=== PATIENT | female | born 1940 | race Caucasian/White ===

== ENCOUNTER 2024-12-10 17:58 | Inpatient (IN) | payer MEDICARE, OTHER, SELFPAY ==
[2024-12-10 13:17] VITALS: BP 152/76
[2024-12-10 13:58] LABS: % Basophils 0.9 % (0-2); % Eosinophils 0.7 % (0-6); % Immature Granulocytes 0.4 % (0-0.5); % Lymphocytes 23.3 % (20.5-51.1); % Monocytes 6.1 % (1.7-9.3); % Neutrophils 68.6 % (42.2-75.2); Absolute Basophils 0.1 10^3/uL (0-0.2); Absolute Eosinophils 0.1 10^3/uL (0-0.7); Absolute Lymphocytes 1.6 10^3/uL (1.2-3.4); Absolute Monocytes 0.4 10^3/uL (0.1-0.6); Absolute Neutrophils 4.6 10^3/uL (1.4-6.5); Hematocrit 41.9 % (37.0-47.0); Hemoglobin 13.7 g/dL (12.0-16.0); Mean Corp Hgb Conc. 32.7 g/dL (33.0-37.0); Mean Corpuscular Hgb 28.2 pg (27.0-31.0); Mean Corpuscular Volume 86.4 fL (81.0-99.0); Mean Platelet Volume 10.5 fL (7.4-10.4); Nucleated Red Blood Cells % 0 %; Platelet Count 334 10^3/uL (130-400); Red Blood Cell Count 4.85 10^6/uL (4.20-5.40); Red Cell Dist. Width 14.7 % (11.5-14.5); White Blood Cell Count 6.7 10^3/uL (4.8-10.8)
[2024-12-10 14:06] LABS: Urine Albumin 2+ (Neg - Trace); Urine Bilirubin Negative (Negative); Urine Character Slightly Cloudy (Clear); Urine Color Yellow; Urine Glucose Negative (Negative); Urine Ketone 2+ (Negative); Urine Leukocyte 3+ (Negative); Urine Nitrite Positive (Negative); Urine Occult Blood 2+ (Negative); Urine Specific Gravity 1.015 (<1.030); Urine Urobilinogen Negative (Neg - 1+)
[2024-12-10 14:14] LABS: Albumin 4.3 g/dl (3.5-5.0); Alkaline Phosphatase 607 U/L (38-126); Blood Urea Nitrogen 21 mg/dl (7-17); Calcium 10.2 mg/dl (8.4-10.2); Carbon Dioxide 30 mmol/L (22-30); Chloride 100 mmol/L (98-107); Glucose 154 mg/dl (70-99); Lipase 537 U/L (23-300); Potassium 3.8 mmol/L (3.5-5.1); Sodium 138 mmol/L (135-145); Total Bilirubin 7.1 mg/dl (0.2-1.3); Total Protein 7.5 g/dl (6.3-8.2); eGFR > 60.00
[2024-12-10 14:18] LABS: Urine Squamous Cell 0-2 /LPF (Few)
[2024-12-10 14:19] LABS: Urine Bacteria Many (Negative); Urine Red Blood Cell 0-2 /HPF (0-2); Urine White Cell >100 /HPF (0-5)
[2024-12-10 14:22] LABS: ALT (SGPT) 986 U/L (0-35); AST (SGOT) 691 U/L (14-36)
[2024-12-10 14:26] VITALS: BMI 26.6
--- NOTE | 2024-12-10 16:33 | ED.GENMED ---
History of Present Illness
General
Chief Complaint: Abdominal Pain
Time Seen by Provider: 12/10/24 14:19
History of Present Illness
History of Present Illness:
84-year-old female presents the emergency department for evaluation of generalized abdominal pain ongoing for the past week or more. Pain has been gradually worsening since that time. Seems to be radiating toward the upper abdomen at this point.
No nausea vomiting or diarrhea. Denies any fevers chills or night sweats. Prior abdominal surgical history includes cholecystectomy and hysterectomy
Review of Systems
Review of Systems
Allergies reviewed?: Yes
All Other Systems: ROS reviewed and negative except as documented in HPI and ROS
Phy Exam
Physical Exam
Physical Exam:
GEN: Well appearing, NAD, WDWN
HEENT: Oral mucosa moist, mild scleral icterus
Cardiac: Regular rate
Lung: No respiratory distress, no tachypnea
Abdomen: Protuberant but overall soft, nonrigid, mild suprapubic tenderness palpated
MSK: No gross deformity or injuries
Skin: Good color, no pallor or jaundice, no rashes
Neuro: AO x3, moves all extremities freely
Psych: Calm, cooperative
Course
Orders/Labs/Results
Orders:
Orders
12/10/24 Breakfast
Clear Liquid
At Your Request: Full Participation
Does patient need a safe tray?: No
12/10/24 13:45
CA 19-9 [S] Urgent
Comment: ADD ON
Complete Blood Count/With Diff Urgent
Comprehensive Metabolic Panel Urgent
Lipase Urgent
Urinalysis Reflex To Culture Urgent
Date Specimen was Collected: 12/10/24
Time Specimen was Collected: 13:25
Urine Microscopic Reflex Cult Urgent
Urine Culture Urgent
CHARLES Source: U
Specimen Description:
Date Specimen was Collected: 12/10/24
Time Specimen was Collected: 13:25
12/10/24 14:30
CT Abd/Pel (IV only)-DH only Urgent
Comment:
Reason For Exam: periumbilical abd pain, transaminitis
12/10/24 16:31
0.9% Sodium Chloride 1000 ml [Nss] 1,000 ml IV BOLUS
CefTRIAXone [Rocephin] 2,000 mg IV NOW STA
12/10/24 16:58
Add On- LAB Routine
Tests Added?: ca 19-9
12/10/24 17:11
Admit/Transfer Patient As Directed
Co-Sign Provider:
Level of Care: Inpatient admission
Assign to:: Telemetry
Physician / Group: White
Diagnosis: Biliary Obstruction
Reason for Telemetry: Arrhythmia
Date to Stop Telemetry: 12/13/24
Time to Stop Telemetry: 11:00
Reason for Hospitalization: IVF, IV abx
Expected length of stay greater than two midnights?: Yes
ELOS- Estimated Length of Stay in days: 4
I certify the patient meets the requirements for IP care: Yes
PRN Pain Medication Management As Directed
May give lesser potent ordered pain med per pt: Yes
preference::
Protocol:: Medication orders for pain may be administered in a
manner that supports deferring to patient preference
when the pt is:
- Requesting an ordered lesser potent pain medication.
Least to most potent pain medications are defined
as: acetaminophen < NSAID < tramadol < opioids
(morphine, oxycodone, hydromorphone).
- Requesting a lesser dose of the same medication IF
ORDERED.
- Requesting a less intrusive route of administration
if both routes are prescribed by the provider (PO <
IV).
12/10/24 17:13
Code Status As Directed
Resuscitation Status: Full Code
12/10/24 17:25
Sterile Water [Sterile Water For Injection] 20 ml .ROUTE .STK-MED
12/10/24 19:25
0.9% Sodium Chloride 1000 ml [Nss] 1,000 ml IV 75 mls/hr
12/10/24 19:25
GASTROINTESTINAL CONSULT Routine
Consulting Provider: Mao Encarnacion
Was physician already notified: Yes
MR Abdomen W/o & W Contrast Routine
Comment: With MRCP
Reason For Exam: elevated LFTs, possible pancreatitic mass
Recent pill cam endoscopy?: No
Activity As Directed
Activity Level: Out of Bed-Early Mobility
With Assistance
I&O [Intake/ Output] As Directed
Frequency: q12h
Pneumatic Compression Sleeves As Directed
Type: Knee high
Vital Signs As Directed
Frequency: Per unit guidelines
DX Deep Vein Thrombosis Video Routine
12/10/24 20:00
Acetaminophen [Tylenol] 650 mg PO Q4HPRN PRN
Flecainide [Tambocor] 50 mg PO Q12H
MetroNIDAZOLE 500 MG/100 ML [Flagyl 500 mg] 100 ml IV Q8H
Midodrine [ProAmatine] 10 mg PO BID
12/11/24 06:00
Complete Blood Count/No Diff IN AM
Comprehensive Metabolic Panel IN AM
Magnesium IN AM
12/11/24 08:00
Metoprolol Xl [Toprol Xl] 25 mg PO DAILY
Pantoprazole [Protonix IV] 40 mg IV DAILY
12/11/24 18:00
CefTRIAXone [Rocephin] 1,000 mg IV Q24H
12/13/24 11:00
DC Protocol for Telemetry ONCE
Abnormal Lab Results
12/10/24
13:45
MCHC 32.7 L g/dL
(33.0-37.0)
RDW 14.7 H %
(11.5-14.5)
MPV 10.5 H fL
(7.4-10.4)
BUN 21 H mg/dl
(7-17)
Glucose 154 H mg/dl
(70-99)
Total Bilirubin 7.1 H mg/dl
(0.2-1.3)
AST 691 H* U/L
(14-36)
ALT 986 H* U/L
(0-35)
Alkaline Phosphatase 607 H U/L
(38-126)
Lipase 537 H U/L
(23-300)
Urine Ketones 2+ A
(Negative)
Ur Occult Blood Reflex 2+ A
(Negative)
Urine Nitrite (Reflex) Positive A
(Negative)
Leukocyte Esterase Rfl 3+ A
(Negative)
Urine WBC (Reflex) >100 A /HPF
(0-5)
Urine Bacteria (Reflex) Many A
(Negative)
Urine Albumin (Reflex) 2+ A
(Neg - Trace)
12/10/24 13:45
12/10/24 13:45
Vital Signs
Initial and Last Documented VS:
Initial Vital Signs
Temp Pulse Resp BP Pulse Ox
98.5 F 99 18 152/76 98
12/10/24 13:17 12/10/24 13:17 12/10/24 13:17 12/10/24 13:17 12/10/24 13:17
Last Documented Vital Signs
Temp Pulse Resp BP Pulse Ox
97.7 F 93 18 127/96 96
12/10/24 19:38 12/10/24 19:38 12/10/24 19:38 12/10/24 19:38 12/10/24 19:38
MDM/Problems Addressed
MDM/Problems Addressed:
The patient is unfortunately found to have biliary obstruction most likely due to a pancreatic head mass. Incidentally noted to have a urinary tract infection and will be treated with IV antibiotics for this.
*Critical Care Note
Total Time (30-74mins, 75-104mins- exclusive of procedures): Not Applicable
ED Attending Note
-
Portions of this chart may have been created with voice recognition software.� Occasional wrong word or��sound alike� substitutions may have occurred due to the inherent limitations of voice recognition software.
Discharge Plan
Departure
Patient Disposition: Admit
Date of Disposition: 12/10/24
Time of Disposition: 16:33
Admit to: Med/Surg
Presentation/result/management discussed w/ accepting MD/DO: Hospitalist
Discharge Problem:
Mass of pancreas, Biliary obstruction
Interventions
Interventions:
*Risk Screen - Suicide Last Done: 12/10/24 13:17
*General Assessment Last Done: 12/10/24 13:17
*Neglect/Abuse Screening Last Done: 12/10/24 13:17
*ED- Fall Risk Assessment Last Done: 12/10/24 19:26
*ED COVID-19 Vaccine History Last Done: 12/10/24 13:17
*Nursing Disposition Last Done: 12/10/24 19:26
OF-Dybavp-Hoqnxlaktl Assessment Last Done: 12/10/24 14:26
Discharge Date and Time
Discharge Date/Time: 12/10/24 19:27
[2024-12-10] MEDS: NSS 1000 IV ×2 (16:44→20:35)
--- NOTE | 2024-12-10 17:17 | HPS.HSE ---
Family Physician
-
Family Physician: NOT KNOW UNKNOWN - PT DOES
Chief Complaint
-
Abdominal Pain
History of Present Illness
Patient is an 84 y/o female past medical history of paroxysmal atrial fibrillation, and orthostatic hypotension who presents with abdominal pain. Patient reports over the past few months she has had decreasing appetite and has lot about 20 lbs.
Three days ago when she took her medications she developed severe indigestion and has not taken any mediations since that time. Patient reports increasing left sided abdominal pain and distention over the last week. During my evaluation patient's
son arrived who noted her to be jaundice, which he did not note when he saw her last week. Patient denies any fevers, sweats or chills.
Medical History
Past Medical History
Past Medical History: Reports Other
Additional Past Medical History:
Paroxysmal Atrial Fibrillation
Orthostatic Hypotension
Cognitive Impairment
Past Surgical History: Reports Other
Additional Past Surgical History:
Hysterectomy
Cholecystectomy
Appendectomy
Hernia Repair
Ureteral Stent
Bunionectomy
Social History
Tobacco: Non-smoker
Alcohol: Other (Rare per patient)
Family History
Family History: Not pertinent
Allergies / Home Medications
Allergies reflects when Allergies were last updated in [employer].
Home Medications with original date entered in [employer]
Allergy/Medication List:
Allergies
Allergy/AdvReac Type Severity Reaction Status Date / Time
oxycodone [From OxyContin] AdvReac hallucinati Verified 12/10/24 13:23
ons
Home Medications
calcium carbonate (Tums) 200 mg PO BIDPRN PRN gerd 12/10/24
dabigatran etexilate 150 mg capsule (Pradaxa) 150 mg PO BID 12/10/24
flecainide 50 mg tablet 50 mg PO Q12H 12/10/24
metoprolol succinate 25 mg tablet,extended release 24 hr (Toprol XL) 25 mg PO DAILY 12/10/24
midodrine 10 mg tablet 10 mg PO BID 12/10/24
naproxen sodium 220 mg tablet (Aleve) 660 mg PO DAILYPRN PRN mild pain 12/10/24
omeprazole 20 mg capsule,delayed release 20 mg PO DAILYPRN PRN gerd 12/10/24
Review of Systems
-
A 12 point ROS was completed and negative except as noted: Yes
Constitutional: Denies Fever
Respiratory: Denies Cough or Trouble Breathing
Cardiac: Denies Chest Pain or Palpitations
Abdomen/GI: Reports See HPI
Physical Exam
Vital Signs
Vital Signs
Temp Pulse Resp BP Pulse Ox
98.5 F 99 18 152/76 98
12/10/24 13:17 12/10/24 13:17 12/10/24 13:17 12/10/24 13:17 12/10/24 13:17
Physical Exam
General: Comfortable and Conversant
HEENT: NormoCephalic and Moist mucous membranes
Respiratory: Clear and Non Labored Respirations
Cardiac: S1/S2 and Regular Rhythm
GI: Soft and Tender (Mild on the left without rebound or guarding)
Rectal: Deferred by Provider
Musculoskeletal: No Clubbing, No Cyanosis and No Edema
Skin: Warm, Dry and Jaundice
Neuro: Awake and Alert
Psych: Calm
Laboratory Results
-
12/10/24 13:45
12/10/24 13:45
Laboratory Results
Total Bilirubin 7.1 mg/dl (0.2-1.3) H 12/10/24 13:45
AST 691 U/L (14-36) H* 12/10/24 13:45
ALT 986 U/L (0-35) H* 12/10/24 13:45
Alkaline Phosphatase 607 U/L (38-126) H 12/10/24 13:45
Lipase 537 U/L (23-300) H 12/10/24 13:45
Data Reviewed
-
Lab Data: Labs Reviewed by me
Impression/Plan
-
Biliary Obstruction likely secondary to Pancreatic Mass
-Consult GI
-Check Abd MRI with MRCP
-Allow clear liquids
-Trend LFTS
-Check CA 19-9
-Continue ceftriaxone and metronidazole
Urinary Tract Infection
-Continue ceftriaxone
-Await urine culture
Paroxysmal Atrial Fibrillation
-Pradaxa on hold
-Continue flecainide and metoprolol
Orthostatic Hypotension
-Continue Midodrine
Cognitive Impairment
-Patient appears very forgetful
-Monitor for worsening symptoms during hospitalization
DVT proph: SCDs
Code Status: Full Code
--- NOTE | 2024-12-10 17:23 | W.PN.UPDATE ---
Update Note
Progress Note Update
This serves as an addendum to the H&P dictated by Marilou Krueger on 12/10/2024.
I saw and examined the patient.
The FABRIC WORKER FOREMAN or PA's note was reviewed and I agree with the note.
Comment:
Patient 84 years old female history of paroxysmal atrial fibrillation, GERD, hypertension, orthostatic hypotension, came into the hospital with abdominal pain. Patient has been complaining of abdominal discomfort on and off for last several months
and worse over the last few days associated with anorexia, weight loss, nausea. She does have some urinary discomfort. Denies change in the color of the urine or stools. Denies fevers or chills. Reports yellowish of the skin recently. CT scan
shows 2.8 cm mass in the pancreatic head.
Physical exam:
General: No Apparent Distress
HEENT: Normocephalic, Atraumatic and icterus
Respiratory: Clear to Auscultation; Negative Wheezes, Rales or Rhonchi
Cardiac: Regular Rhythm and S1/S2
GI: Soft, Tender and Nondistended
Neuro: Awake, Alert and Oriented, no neurological deficits, mild cognitive deficit.
A/P:
Elevated LFTs and pancreatic mass/UTI--> IV antibiotics, trend LFTs, might need MRCP +/- EUS Bx, hold anticoagulant temporarily, clear liquid diet and n.p.o. after midnight in case needs procedure, GI eval.
[2024-12-10] MEDS: ROCEPHIN 2000 MG IV (17:39)
[2024-12-10 17:46] VITALS: BP 140/76
[2024-12-10 19:38] VITALS: BP 127/96
[2024-12-10 19:40] VITALS: BMI 26.8
[2024-12-10] MEDS: TAMBOCOR 50 MG PO (21:59)
[2024-12-10] MEDS: FLAGYL 500 MG 100 IV (22:00)
[2024-12-10 23:20] VITALS: BP 160/84
--- NOTE | 2024-12-11 01:38 | PTCARENOTE ---
19:20 pt rec'vd from ER with at her side. Pt aaox3 with forgetfulness, c/o 3/10 LLQ abd pain on palpation. Pt vs wnl, oriented to unit, ambulated to restroom. Declined pain meds.
[2024-12-11] MEDS: FLAGYL 500 MG 100 IV ×2 (03:41→12:12)
[2024-12-11 03:42] VITALS: BP 100/69
[2024-12-11] MEDS: COMPAZINE 5 MG IV (04:50)
[2024-12-11 06:00] VITALS: BMI 26.8
[2024-12-11 07:08] LABS: Hematocrit 34.6 % (37.0-47.0); Hemoglobin 11.4 g/dL (12.0-16.0); Mean Corp Hgb Conc. 32.9 g/dL (33.0-37.0); Mean Corpuscular Hgb 28.1 pg (27.0-31.0); Mean Corpuscular Volume 85.2 fL (81.0-99.0); Mean Platelet Volume 11.4 fL (7.4-10.4); Platelet Count 262 10^3/uL (130-400); Red Blood Cell Count 4.06 10^6/uL (4.20-5.40); Red Cell Dist. Width 14.9 % (11.5-14.5); White Blood Cell Count 5.4 10^3/uL (4.8-10.8)
[2024-12-11 07:17] LABS: AST (SGOT) 567 U/L (14-36); Albumin 3.4 g/dl (3.5-5.0); Alkaline Phosphatase 511 U/L (38-126); Blood Urea Nitrogen 17 mg/dl (7-17); Calcium 9.2 mg/dl (8.4-10.2); Carbon Dioxide 25 mmol/L (22-30); Chloride 106 mmol/L (98-107); Estimated Creatinine Clearance 67 ml/min; Glucose 102 mg/dl (70-99); Magnesium 1.8 mg/dl (1.6-2.3); Potassium 3.8 mmol/L (3.5-5.1); Sodium 139 mmol/L (135-145); Total Protein 5.9 g/dl (6.3-8.2); eGFR > 60.00
[2024-12-11 07:31] LABS: ALT (SGPT) 827 U/L (0-35)
[2024-12-11 08:00] VITALS: BP 143/69
--- NOTE | 2024-12-11 08:26 | W.PN.HOSP.TC ---
Today's Communication/Plan
-
MRCP. Antibiotics.
Assessment / Plan
Assessment / Plan
Physical exam:
General: Well Developed, Well Nourished and No Apparent Distress
HEENT: Normocephalic, Atraumatic and Moist Mucous Membranes
Respiratory: Clear to Auscultation; Negative Wheezes, Rales or Rhonchi
Cardiac: Regular Rhythm and S1/S2
GI: Soft, tender and Nondistended
Musculoskeletal: No Clubbing, No Cyanosis and No Edema
Neuro: Awake, Alert and Oriented
Psych: Calm
A/P:
Biliary Obstruction likely secondary to Pancreatic Mass
-GI consult
-Check Abd MRI with MRCP
-Allow clear liquids
-Trend LFTS
-Check CA 19-9 and CEA
-Continue ceftriaxone and metronidazole
-Continue to hold Pradaxa
-Might need ERCP/EUS
-Continue PPI
Urinary Tract Infection
-Continue ceftriaxone
-Await urine culture
Paroxysmal Atrial Fibrillation
-Pradaxa on hold
-Continue flecainide and metoprolol
Orthostatic Hypotension
-Continue Midodrine
Cognitive Impairment
-Patient appears very forgetful
-Monitor for worsening symptoms during hospitalization
DVT proph: SCDs
Code Status: Full Code
Total time spent on today's encounter was 52 minutes which included time spent in counseling the patient/family regarding diagnosis and treatment plan as listed above, goals of care, and symptom management. Case was discussed with nursing staff,
specialists, and care coordinators/case management. All labs and imaging personally reviewed by me. Remainder the time spent in detailed review of previous records, lab data, imaging, and other medical provider documentation.
Anticipated Discharge: 24 - 48 hours
Subjective/Interval History
-
Date of Service: December 11, 2024
Patient still has some abdominal discomfort. Afebrile
Objective Data
-
Labs:
Laboratory Results
12/11/24
05:23
WBC 5.4
Hgb 11.4 L
Hct 34.6 L
Plt Count 262 D
Sodium 139
Potassium 3.8
Chloride 106
Carbon Dioxide 25
BUN 17
Creatinine 0.6
Glucose 102 H
Calcium 9.2
Total Bilirubin 6.0 H
AST 567 H*
ALT 827 H*
Alkaline Phosphatase 511 H
Vital Signs:
Vital Signs
Temp Pulse Resp BP Pulse Ox
97.6 F 93 18 100/69 96
12/11/24 03:42 12/11/24 03:42 12/11/24 03:42 12/11/24 03:42 12/11/24 03:42
I&O
12/10/24 12/11/24 12/12/24
06:59 06:59 06:59
Intake Total 1302.5 / 1302.5
Balance 1302.5 / 1302.5
[2024-12-11] MEDS: NSS (PRESERVATIVE FREE) 10 ML IV (09:07)
[2024-12-11] MEDS: TOPROL XL 25 MG PO (09:08)
[2024-12-11] MEDS: PROTONIX IV 40 MG IV (09:08)
[2024-12-11] MEDS: NSS 1000 IV (09:17)
--- NOTE | 2024-12-11 09:23 | CON.GI ---
Addendum entered and electronically signed by Mao Encarnacion MD 12/11/24 14:05:
Patient seen and examined, agree with nurse practitioner. Patient is an 84-year-old female with history of A-fib on Pradaxa, though otherwise healthy, with several week history of epigastric discomfort, nausea and 20 pound weight loss. Upon
admission she was noted to have significant elevated LFTs with a bilirubin of 6, ALT and AST in the 5-800 range and mildly elevated lipase. CT scan done with contrast found 2.8 cm ill-defined mass in the head of the pancreas with severe intra and
extrahepatic biliary duct dilation. On exam she has minimal epigastric discomfort, and is jaundice but otherwise unremarkable.
I discussed with the patient and her at length, very suspicious for pancreatic malignancy. At this point will await MRI reading, and we will plan for EUS/ERCP, timing will be determined after discussion with Dr. Bernal. Will advance diet for
today though continue to hold Pradaxa for now.
Original Note:
Consultation
-
Date/Time Consultation Requested: 12/10/241924
Date/Time Consultation Performed: 12/11/24922
Requesting Provider: ZOIE Mazariegos
Performing Provider: Dr. Encarnacion/MATHEUS Campbell
Reason for Consultation: biliary obstruction
Medical History
Chief Complaint / HPI
Chief Complaint: abd pain
History of Present Illness:
84 y/o female with PMH of PAF on Pradaxa (last dose prior to arrival on 12/10/24),HTN, orthostatic hypotension, GERD and cognitive impairment presents to the ER with left mid abd abdominal pain, decreased appetite, nausea, weight loss, new onset
jaundice. Found to have pancreatic mass on CT imaging. We are asked to evaluate for the same. The patient does have some degree of forgetfulness however is able to give a good history to me. She states that for the past 3 months she has noticed that
she has been having decreased ability to eat as much, getting full quickly. She then started having nausea with a weight loss of 20 lbs over the past 8 weeks. During that time she also developed a left mid abdomen abdominal discomfort that would
'come and go' she states that this was dull, nothing would make better or worse. She then started taking medication for 'her stomach' which did not help. She would never vomit. 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
darker. She was not able to eat as much with more and more nausea and pain. She tried taking Advil for the pain but that did not help. That is when she was rought to the hospital for evaluation. Labs this am WBC 5.4, Hgb 11.4, Hct 34.6, PLT 262, T
Bili 6.0 (7.1), AST 567 (691), ALT 827 (986), Alk Phos 511 (607), Lipase 537. Ct Abd/Pelvis with IV contrast only shows ill-defined, mildly hyperdense focus within the pancreatic head measuring approximately 2.8 cm. There is associated severe
intrahepatic and extrahepatic biliary ductal dilation. Consolation of findings are concerning for pancreatic head lesion. Recommend MRI abdomen for further evaluation.Sclerotic foci within the lumbar spine and pelvis suspicious for sclerotic osseous
metastasis. Left inguinal hernia containing nonobstructed colon. Fat-containing supraumbilical hernia. Small/moderate pericardial effusion.
Past Medical History
Past Medical History: Arrhythmias (PAF), GERD, HTN and Other (orthostatic hypotension, cognitive impairment)
Past Surgical History: Appendectomy, Cholecystectomy, Gynecological (hysterectomy) and Other (hernia repair, ureteral stent, bunionectomy)
Social History
Tobacco: Non-Smoker
Alcohol: Other (rare)
Drug: None
Personal:
Living: With Family
Family History
Family History: Other (No family hx of GI malignancy or IBD)
Allergies / Home Medications
Allergy/AdvReac Type Severity Reaction Status Date / Time
Oubzaox-[id number]-YwD Reductase Allergy Severe Shortness Verified 12/11/24 00:05
Inhibitor of Breath
oxycodone [From OxyContin] AdvReac hallucinati Verified 12/10/24 13:23
ons
�Medication �Instructions �Recorded
calcium carbonate (Tums) 200 mg PO BIDPRN PRN gerd 12/10/24
dabigatran etexilate 150 mg 150 mg PO BID Blood Clot 12/10/24
capsule (Pradaxa) Prevention/Tx
flecainide 50 mg tablet 50 mg PO Q12H Arrhythmia 12/10/24
metoprolol succinate 25 mg 25 mg PO DAILY Heart 12/10/24
tablet,extended release 24 hr Disease/Condition
(Toprol XL)
midodrine 10 mg tablet 10 mg PO BID Blood Pressure 12/10/24
naproxen sodium 220 mg tablet 660 mg PO DAILYPRN PRN mild pain 12/10/24
(Aleve)
omeprazole 20 mg capsule,delayed 20 mg PO DAILYPRN PRN gerd 12/10/24
release
Review of Systems
Vital Signs
Temp Pulse Resp BP Pulse Ox
98.0 F 82 16 143/69 97
12/11/24 08:00 12/11/24 08:00 12/11/24 08:00 12/11/24 09:07 12/11/24 08:00
Physical Exam
Results
WBC 5.4 10^3/uL (4.8-10.8) 12/11/24 05:23
Hgb 11.4 g/dL (12.0-16.0) L 12/11/24 05:23
Hct 34.6 % (37.0-47.0) L 12/11/24 05:23
MCV 85.2 fL (81.0-99.0) 12/11/24 05:23
Plt Count 262 10^3/uL (130-400) D 12/11/24 05:23
Absolute Neuts (auto) 4.6 10^3/uL (1.4-6.5) 12/10/24 13:45
Sodium 139 mmol/L (135-145) 12/11/24 05:23
Potassium 3.8 mmol/L (3.5-5.1) 12/11/24 05:23
Chloride 106 mmol/L (98-107) 12/11/24 05:23
Carbon Dioxide 25 mmol/L (22-30) 12/11/24 05:23
BUN 17 mg/dl (7-17) 12/11/24 05:23
Creatinine 0.6 mg/dL (0.6-1.0) 12/11/24 05:23
Calcium 9.2 mg/dl (8.4-10.2) 12/11/24 05:23
Total Bilirubin 6.0 mg/dl (0.2-1.3) H 12/11/24 05:23
AST 567 U/L (14-36) H* 12/11/24 05:23
ALT 827 U/L (0-35) H* 12/11/24 05:23
Alkaline Phosphatase 511 U/L (38-126) H 12/11/24 05:23
Lipase 537 U/L (23-300) H 12/10/24 13:45
Diagnostic Image Results:
Prior GI Procedures:
EGD:
Colonoscopy:
Assessment / Plan
-
84 y/o female with PMH of PAF on Pradaxa (last dose prior to arrival on 12/10/24),HTN, orthostatic hypotension, GERD and cognitive impairment presents to the ER with left mid abd abdominal pain, decreased appetite, nausea, weight loss, new onset
jaundice. Found to have pancreatic mass on CT imaging. We are asked to evaluate for the same. CT Abd/Pelvis with IV contrast shows ill-defined, mildly hyperdense focus within the pancreatic head measuring approximately 2.8 cm. There is associated
severe intrahepatic and extrahepatic biliary ductal dilation. Consolation of findings are concerning for pancreatic head lesion. Recommend MRI abdomen for further evaluation.Sclerotic foci within the lumbar spine and pelvis suspicious for sclerotic
osseous metastasis. Left inguinal hernia containing nonobstructed colon. Fat-containing supraumbilical hernia. Small/moderate pericardial effusion. Labs this am WBC 5.4, Hgb 11.4, Hct 34.6, PLT 262, T Bili 6.0 (7.1), AST 567 (691), ALT 827 (986),
Alk Phos 511 (607), Lipase 537. Ca 19-9 pending. Pradaxa is on hold. MRI/MRCP ordered.
Impression:
Pancreatic head mass 2.8 cm with intra/extra hepatic ductal dilatation
Obstructive jaundice
Nausea
Weight loss
Left sided abdominal discomfort
Afib on Pradaxa, last dose 12/10/34
Plan:
-Await MRI/MRCP for further clarification.
-Await Ca 19-9, Can also add CEA
-Pradaxa being held. Will likely need EUS/ERCP once MRCP completed. Timing to be determined? inpatient vs outpatient.
-Continue Pantoprazole 40 mg IV daily.
-Further recommendations to be forthcoming.
-
-
Thank you for consultation and allowing me to participate in the patient's care. Please call the deportation officer GI physician during the after hours with any questions or concerns.
[2024-12-11 11:50] LABS: CEA 0.89 ng/ml
--- NOTE | 2024-12-11 12:02 | CM ---
Initial assessment completed
Pt reports she lives at [facility] in Independent living with her
AAA x 3; forgetful. Independent with ADL's. Ambulates independently
DME - none
SNF/HH - denies past hx
Has ride at d/c
PCP - unsure - seen at [facility]
Pharm - [facility]
Plan - TBD - for MRI today. CM will follow for d/c needs
[2024-12-11] MEDS: TAMBOCOR 50 MG PO (12:12)
[2024-12-11 12:30] VITALS: BP 147/73
--- NOTE | 2024-12-11 15:03 | W.PN.UPDATE ---
Update Note
Progress Note Update
I discussed with Dr. Bernal, reviewed MRI with patient and her , concerning for metastatic pancreatic cancer. She is set up for EUS/ERCP on Saturday, December 15 at 1:00, to be there at 12 PM. She knows to continue to hold the Pradaxa, take her
metoprolol on the day of with a sip of water, instructions were given. She is okay to DC from GI standpoint.
[2024-12-11 16:15] VITALS: BP 140/56
--- NOTE | 2024-12-11 16:47 | W.DCSUMMARY ---
Discharge Summary
Discharge Data
Date of Admission: 12/10/24
Date of Discharge: 12/11/24
-
Pending Results: No
Hospital Course
Patient 84 years old female history of A-fib, orthostatic hypotension, GERD, cognitive impairment, who presented to the hospital with abdominal pain nausea and vomiting and jaundice. Patient was found elevated LFTs and a mass in the pancreas by CT
scan. GI was consulted. There was some concerns of urinary tract infection and she was started on antibiotics as well. She had an MRCP and it did confirm pancreatic mass concerning for malignancy with biliary obstruction. GI cannot perform
interventional procedure of the weekend and she is hemodynamically stable and tolerated diet so GI cleared her for discharge to arrange for outpatient interventional procedure of ERCP and EUS on this coming Saturday. For instructed to hold
anticoagulant and keep her on antibiotics till then. There was some reports of possible pericardial effusion on images of MRI so we did an echocardiogram but this was ruled out and there was no pericardial effusion and normal EF and no significant
valvulopathy by echo. No other events noticed. She will be discharged in stable condition today.
Discharge duration: 35 minutes
Discharge Plan
-
Patient Disposition: Home (Routine Discharge)
Discharge Diagnosis/Procedures: Pancreatic mass concerning for malignancy. Possible urinary tract infection. Elevated liver function test.
Diet: Low Cholesterol
Activity: As tolerated
Blood Work: Please PCP to order CBC, CMP within 1 week
Referrals:
Primary care, provider [Other] - in less than 1 week
Ravinder Bernal MD [Active] - 12/15/24
Prescriptions:
New
amoxicillin-pot clavulanate 875-125 mg Tablet
1 tab PO Q12 5 Days Qty: 10 0RF
Continued
flecainide 50 mg Tablet
50 mg PO Q12H
calcium carbonate [Tums] 200 mg calcium (500 mg) Tablet,Chewable
200 mg PO BIDPRN PRN (Reason: gerd)
omeprazole 20 mg Capsule,Delayed Release(Dr/Ec)
20 mg PO DAILYPRN PRN (Reason: gerd)
metoprolol succinate [Toprol XL] 25 mg Tablet Extended Release 24 Hr
25 mg PO DAILY
midodrine 10 mg Tablet
10 mg PO BID
Held
dabigatran etexilate [Pradaxa] 150 mg Capsule
150 mg PO BID
Hold Instructions: Resume on 12/16/24.
Discontinued
naproxen sodium [Aleve] 220 mg Tablet
660 mg PO DAILYPRN PRN (Reason: mild pain)
Discharge Orders:
Discharge Patient (As Directed); Ordered 12/11/24
Ordered By: Cresencio White
Discharge Date and Time
Discharge Date/Time: 12/11/24 18:30
Print Language: BENGALI
[2024-12-13 00:31] LABS: CA 19-9 473 U/mL (<=35)
== END 2024-12-11 18:30 | disposition home or self-care (01) | DRG 438 ==
LOC: 2 SOUTH 17:58
PROVIDERS: Nurse Practitioner; Physician Assistant Medical; Student in an Organized Health Care Education/Training Program; ADMITTING PHYSICIAN Hospitalist; CONSULT PHYSICIAN Internal Medicine Gastroenterology; EMERGENCY PHYSICIAN Student in an Organized Health Care Education/Training Program
DX: K86.89 Other specified diseases of pancreas (principal); K83.1 Obstruction of bile duct; I31.39 Other pericardial effusion (noninflammatory); N39.0 Urinary tract infection, site not specified; I48.0 Paroxysmal atrial fibrillation; I95.1 Orthostatic hypotension; Z90.49 Acquired absence of other specified parts of digestive tract; Z90.710 Acquired absence of both cervix and uterus; I10 Essential (primary) hypertension; K21.9 Gastro-esophageal reflux disease without esophagitis; K40.90 Unilateral inguinal hernia, without obstruction or gangrene, not specified as recurrent; Z79.899 Other long term (current) drug therapy
CPT/HCPCS: 74177; 74183; 80053; 81003; 81015; 82378; 83690; 83735; 85025; 85027; 86301; 87086; 93306; 96360; 99285; A9575; Q9967

== ENCOUNTER 2024-12-15 16:42 | Inpatient (IN) | payer MEDICARE, OTHER, SELFPAY ==
[2024-12-15] VITALS (16 sets, daily range): BP systolic 106–161; BP diastolic 54–84; BMI 26.6
--- NOTE | 2024-12-15 16:26 | HPS.HSE ---
Family Physician
-
Family Physician: INTERVIEWE UNKNOWN - PT NOT
Chief Complaint
-
pancreatic mass status post EUS/ERCP
History of Present Illness
84 yo F PMH paroxysmal afib (pradaxa, held for procedure), orthostatic hypotension, cognitive impairment who presented to today for her scheduled EUS/ERCP. Reportedly had few months of poor appetite, weight loss (20lbs), epigastric
discomfort/nausea. She presented to ED 12/10 for worsening abdominal pain/distension: she was found to have significantly elevated LFTs, mildly elevated lipase, 2.8 cm pancreatic mass with severe intra and extrahepatic biliary duct dilation.
Findings were suspicious for pancreatic malignancy. She now returned today to have scheduled EUS/ERCP with Dr. Bernal for further evaluation.
History obtained from chart review as patient unable to provide history in PACU. At time of my evaluation, she has no complaints. Review of systems negative-- denies dizziness, chest pain, shortness of breath, abdominal pain, nausea, vomiting,
diarrhea, constipation.
Medical History
Past Medical History
Past Medical History: Reports Arrhythmia (Paroxysmal atrial fibrillation), GERD and Other (Orthostatic hypotension, cognitive impairment, pancreatic mass)
Past Surgical History: Reports Appendectomy, Cholecystectomy, Gynocological (Hysterectomy) and Other (Hernia repair, ureteral stent, bunionectomy)
Social History
Unable to obtain full social history at this time due to: Other (Recovering from anesthesia)
Tobacco: Non-smoker
Alcohol: Other (Rare)
Drug: None
Personal:
Living: With Family
Family History
Family History: Not pertinent
Allergies / Home Medications
Allergies reflects when Allergies were last updated in [facility].
Home Medications with original date entered in [facility]
Allergy/Medication List:
Allergies
Allergy/AdvReac Type Severity Reaction Status Date / Time
Rwsigab-ICM-IdK Reductase Allergy Severe Shortness Verified 12/15/24 11:07
Inhibitor of Breath
oxycodone [From OxyContin] AdvReac hallucinati Verified 12/15/24 11:07
ons
Home Medications
calcium carbonate (Tums) 200 mg PO BIDPRN PRN gerd 12/10/24
dabigatran etexilate 150 mg capsule (Pradaxa) 150 mg PO BID Blood Clot Prevention/Tx 12/10/24
flecainide 50 mg tablet 50 mg PO Q12H Arrhythmia 12/10/24
metoprolol succinate 25 mg tablet,extended release 24 hr (Toprol XL) 25 mg PO DAILY Heart Disease/Condition 12/10/24
midodrine 10 mg tablet 10 mg PO BID Blood Pressure 12/10/24
omeprazole 20 mg capsule,delayed release 20 mg PO DAILYPRN PRN gerd 12/10/24
amoxicillin 875 mg-potassium clavulanate 125 mg tablet 1 tab PO Q12 5 days #10 tabs 12/11/24
Review of Systems
-
Unable to obtain full review of systems at this time due to: Other (Recovering from anesthesia)
Physical Exam
Vital Signs
Vital Signs
Temp Pulse Resp BP Pulse Ox
98.5 F 75 14 125/71 99
12/15/24 15:15 12/15/24 15:45 12/15/24 15:45 12/15/24 15:30 12/15/24 15:45
Physical Exam
General: No Apparent Distress, Comfortable and Other (Jaundice); No Pain, Fever, Chills or Sweats
HEENT: NormoCephalic, Atraumatic and Other (Scleral icterus)
Respiratory: Clear (Anterior lung ludwig) and Non Labored Respirations
Cardiac: S1/S2 and Regular Rhythm
GI: Soft, Non Tender (To light palpation), Non Distended and Normal Bowel Sounds
Musculoskeletal: No Clubbing, No Cyanosis and No Edema
Skin: Warm, Dry and Other (Jaundiced)
Neuro: Awake, Alert and Other (Recovering from anesthesia); No Oriented (Says she is at [facility]) or Facial Droop
Psych: Calm
Laboratory Results
-
Recent labs from prior hospitalization reviewed:
WBC wnl
Hgb 13.7 --> 11.4
Plt 334--> 262
T bili 7.1 --> 6.0
AST 691 --> 567
ALT 986 --> 827
Alk phos 607 --> 511
Lipase 537
CA 19�9 Ag 473
Data Reviewed
-
Medical Tests (Nuc Med, Echo, EKG etc): Discussed with Physician
Lab Data: Labs Reviewed by me
Old Records: Reviewed
Impression/Plan
-
84 yo F PMH paroxysmal afib (pradaxa, held for procedure), orthostatic hypotension, cognitive impairment who presented to today for her scheduled EUS/ERCP for evaluation of 2.8 cm pancreatic mass with severe intra and extrahepatic biliary duct
dilation. On recent previous hospitalization, her presentation and imaging was concerning for pancreatic malignancy.
Pancreatic mass 2.8 cm on prior imaging, concerning for malignancy
Biliary obstruction and jaundice
S/p EUS/ERCP with Dr. Bernal 12/15/24--pathology pending; successful pancreatic duct stent, unable to cannulate biliary duct
-GI following, appreciate recs. Plan per Dr. Bernal for hospital admission and repeat ERCP in 2 days.
-Clear liquid diet today, advance tomorrow as tolerated. N.p.o. at midnight prior to next procedure.
-Hold Pradaxa
-CBC, CMP in AM
Recent UTI-was discharged from hospital on 5-day course of amoxicillin-clavulanate. Will continue.
Orthostatic hypotension-continue home midodrine
Paroxysmal F-fbs-sdfkklato NSR on admission. Continue home flecainide, metoprolol succinate. Hold Pradaxa for procedure.
VTE ppx: lovenox, scds
Diet: Clear liquid
Dispo planning: TBD pending clincial course
--- NOTE | 2024-12-15 16:47 | W.PN.UPDATE ---
Update Note
Progress Note Update
Seen and examined by me independently in collaboration with the medical front desk specialist Dr. Linares.
Past medical history/social history/medication/allergies reviewed.
Lab data and imaging data reviewed.
Patient with recent discovery of obstructive jaundice from possible pancreatic tumor was brought in today electively for biliary duct/pancreatic duct cannulation and stent placement.
Patient had successful placement of pancreatic duct stent but biliary duct could not be cannulated and stented.
GI recommends admission to hospital and reattempt ERCP and cannulation in 2 days.
Patient currently in PACU. Oriented to place and person. Denies any nausea vomiting. No chest pain or shortness of breath.
Abdomen benign.
No respiratory distress. Chest clear.
S1-S2 heard.
Looks nontoxic.
Admit to hospital. Clear liquid diet per GI. Resume her oral medication x-ray Pradaxa.
She is due to complete her dose of Augmentin for UTI today-continue.
Obtain a CBC CMP in AM. Obtain EKG for baseline. Clinically in SR .
--- NOTE | 2024-12-15 17:02 | CON.GI ---
Consultation
-
Date/Time Consultation Requested: 12/15/24
Date/Time Consultation Performed: 12/15/24
Requesting Provider: Dr. Aguirre
Performing Provider: Dr. Bryson
Reason for Consultation: Biliary obstruction
Medical History
Chief Complaint / HPI
Chief Complaint: abd pain
History of Present Illness:
84 y/o female with PMH of PAF on Pradaxa (last dose prior to arrival on 12/10/24),HTN, orthostatic hypotension, GERD and cognitive impairment who initially presented to last week with epigastric discomfort, nausea and 20lb weight loss found to
biliary obstruction, concern for pancreatic malignancy. LFTs on recent admission with bilirubin of 6, ALT and AST in 5-800. CT scan showed 2.8 cm ill-defined mass in HOP with severe intra and extrahepatic biliary ductal dilation. She was discharged
home with plans for outpatient ERCP/EUS today with Dr. Bernal. She presented for her elective procedures today with Dr. Bernal, however, technically difficult procedure and unable to complete, so patient was subsequently recommended for admission
following procedure with plans to reattempt on with Dr. Bernal.
EUS 12/15/24: - A mass was identified in the pancreatic head. This
was staged T2 Nx Mx by endosonographic criteria. Fine
needle aspiration performed.
- There was dilation in the common bile duct which
measured up to 17 mm.
- There was no evidence of significant pathology in
the left lobe of the liver.
- Two enlarged lymph nodes were visualized in the
peripancreatic region.
ERCP 12/15/24: Severe extrinsic deformity found in the first portion the duodenum and the second portion of the duodenum. A few severely congested mucosa without active bleeding or stigmata of recent bleeding in the first and second portion the
duodenum. Difficult to locate the major papilla, the ventral pancreatic duct was inadvertently cannulated. The bile duct was unable to be cannulated. Plastic stent with a full external pigtail placed 5 cm into the ventral pancreatic duct.
MRI/MRCP 12/11/24:
1. PANCREATIC HEAD CANCER completely obstructing the common bile duct and encasing the portal vein-superior mesenteric vein confluence which is severely narrowed. Complete thrombosis of the splenic vein. Other regions of signal abnormality in the
pancreatic body and tail suggesting pancreatic malignancy. Inferior extension of infiltrative pancreatic malignancy into the small bowel mesentery.
2. SEVERE COMMON BILE DUCT OBSTRUCTION with severe distention of the proximal extrahepatic bile ducts and intrahepatic bile ducts.
3. 5 mm enhancing lesion in the right lobe of the liver (possible hepatic metastasis).
4. 7.4 mm enhancing lesion in the right subhepatic space (possible peritoneal metastasis).
5. Mild kita hepatis and portacaval lymphadenopathy (possible nilesh metastatic disease).
6. Multiple enhancing intramedullary osseous lesions (PROBABLE MULTIFOCAL OSSEOUS METASTATIC DISEASE).
7. Small volume of ascites.
8. Moderate-sized complex pericardial effusion (possibly hemorrhagic).
9. Minimal bilateral pleural effusions.
Ct Abd/Pelvis with IV contrast 12/10/24: ill-defined, mildly hyperdense focus within the pancreatic head measuring approximately 2.8 cm. There is associated severe intrahepatic and extrahepatic biliary ductal dilation. Consolation of findings are
concerning for pancreatic head lesion. Recommend MRI abdomen for further evaluation.Sclerotic foci within the lumbar spine and pelvis suspicious for sclerotic osseous metastasis. Left inguinal hernia containing nonobstructed colon. Fat-containing
supraumbilical hernia. Small/moderate pericardial effusion.
Past Medical History
Past Medical History: Arrhythmias (PAF), GERD, HTN and Other (orthostatic hypotension, cognitive impairment)
Past Surgical History: Appendectomy, Cholecystectomy, Gynecological (hysterectomy) and Other (hernia repair, ureteral stent, bunionectomy)
Social History
Tobacco: Non-Smoker
Alcohol: Other (rare)
Drug: None
Personal:
Living: With Family
Family History
Family History: Other (No family hx of GI malignancy or IBD)
Allergies / Home Medications
Allergy/AdvReac Type Severity Reaction Status Date / Time
Mmoopll-AVC-AbV Reductase Allergy Severe Shortness Verified 12/15/24 11:07
Inhibitor of Breath
oxycodone [From OxyContin] AdvReac hallucinati Verified 12/15/24 11:07
ons
�Medication �Instructions �Recorded
calcium carbonate (Tums) 200 mg PO BIDPRN PRN gerd 12/10/24
dabigatran etexilate 150 mg 150 mg PO BID Blood Clot 12/10/24
capsule (Pradaxa) Prevention/Tx
flecainide 50 mg tablet 50 mg PO Q12H Arrhythmia 12/10/24
metoprolol succinate 25 mg 25 mg PO DAILY Heart 12/10/24
tablet,extended release 24 hr Disease/Condition
(Toprol XL)
midodrine 10 mg tablet 10 mg PO BID Blood Pressure 12/10/24
omeprazole 20 mg capsule,delayed 20 mg PO DAILYPRN PRN gerd 12/10/24
release
amoxicillin 875 mg-potassium 1 tab PO Q12 5 days #10 tabs 12/11/24
clavulanate 125 mg tablet
Review of Systems
-
History Source: Patient
All other systems: A 12 pt ROS was Negative except as stated above in HPI
Vital Signs
Temp Pulse Resp BP Pulse Ox
98.5 F 76 17 131/63 98
12/15/24 15:15 12/15/24 16:30 12/15/24 16:30 12/15/24 16:30 12/15/24 16:30
Physical Exam
Exam
GENERAL:NAD
HEENT: +scleral icterus
RESP: Nonlabored respirations, clear to ausculation, b/l
CV: RRR, S1/S2
ABDOMEN: +BS; soft, non-tender and non-distended; no rebound or guarding
Skin: +Jaundice
Results
Diagnostic Image Results:
Prior GI Procedures:
EGD:
Colonoscopy:
Assessment / Plan
-
84 y.o. female with likely new diagnosis of widely metastatic pancreatic malignancy with biliary obstruction admitted following EUS w/ FNA and failed attempt at ERCP.
-okay for regular diet
-hold pradaxa
-empiric antibiotic coverage with cipro
-plan for repeat attempt at ERCP vs. EUS-guided choledochoduodenostomy on with Dr. Bernal
Data Reviewed
-
Radiology: Report Reviewed by me
CT Scan: Report Reviewed by me
MRI: Report Reviewed by me
Old Records: Reviewed
-
-
Thank you for consultation and allowing me to participate in the patient's care. Please call the siphoner GI physician during the after hours with any questions or concerns.
[2024-12-15] MEDS: CIPRO 400 MG 200 IV (18:06)
[2024-12-15] MEDS: ProAmatine 10 MG PO (18:07)
[2024-12-15] MEDS: LOVENOX 40 MG SC (18:07)
[2024-12-15] MEDS: TAMBOCOR 50 MG PO (20:00)
[2024-12-15] MEDS: AUGMENTIN 875 MG/125 MG 1 TABLET PO (20:00)
[2024-12-16 03:21] VITALS: BP 139/85
[2024-12-16] MEDS: CIPRO 400 MG 200 IV ×2 (05:00→17:00)
[2024-12-16 06:00] VITALS: BMI 28.0
[2024-12-16 07:56] VITALS: BP 129/71
[2024-12-16] MEDS: ProAmatine 10 MG PO ×2 (08:14→17:00)
[2024-12-16] MEDS: TOPROL XL 25 MG PO (08:14)
[2024-12-16] MEDS: AUGMENTIN 875 MG/125 MG 1 TABLET PO ×2 (08:14→19:37)
[2024-12-16] MEDS: TAMBOCOR 50 MG PO ×2 (08:14→19:37)
[2024-12-16 08:19] LABS: Hematocrit 34.7 % (37.0-47.0); Hemoglobin 11.6 g/dL (12.0-16.0); Mean Corp Hgb Conc. 33.4 g/dL (33.0-37.0); Mean Corpuscular Volume 83.8 fL (81.0-99.0); Mean Platelet Volume 11.2 fL (7.4-10.4); Platelet Count 247 10^3/uL (130-400); Red Blood Cell Count 4.14 10^6/uL (4.20-5.40); White Blood Cell Count 6.6 10^3/uL (4.8-10.8)
--- NOTE | 2024-12-16 08:38 | W.PN.GI.CBS2 ---
Today's Communication / Plan
-
Plan for repeat ERCP vs. EUS-guided choledochoduodenostomy tomorrow with Dr. Bernal. Rufus Middleton. Empiric Abx coverage
Assessment / Plan
-
84 y.o. female with likely new diagnosis of widely metastatic pancreatic malignancy with biliary obstruction admitted following EUS w/ FNA and failed attempt at ERCP on 12/15.
-EUS 12/15/24: - A mass was identified in the pancreatic head. This
was staged T2 Nx Mx by endosonographic criteria. Fine
needle aspiration performed.
- There was dilation in the common bile duct which
measured up to 17 mm.
- There was no evidence of significant pathology in
the left lobe of the liver.
- Two enlarged lymph nodes were visualized in the
peripancreatic region.
-ERCP 12/15/24: Severe extrinsic deformity found in the first portion the duodenum and the second portion of the duodenum. A few severely congested mucosa without active bleeding or stigmata of recent bleeding in the first and second portion the
duodenum. Difficult to locate the major papilla, the ventral pancreatic duct was inadvertently cannulated. The bile duct was unable to be cannulated. Plastic stent with a full external pigtail placed 5 cm into the ventral pancreatic duct.
-MRI/MRCP 12/11/24:
1. PANCREATIC HEAD CANCER completely obstructing the common bile duct and encasing the portal vein-superior mesenteric vein confluence which is severely narrowed. Complete thrombosis of the splenic vein. Other regions of signal abnormality in the
pancreatic body and tail suggesting pancreatic malignancy. Inferior extension of infiltrative pancreatic malignancy into the small bowel mesentery.
2. SEVERE COMMON BILE DUCT OBSTRUCTION with severe distention of the proximal extrahepatic bile ducts and intrahepatic bile ducts.
3. 5 mm enhancing lesion in the right lobe of the liver (possible hepatic metastasis).
4. 7.4 mm enhancing lesion in the right subhepatic space (possible peritoneal metastasis).
5. Mild kita hepatis and portacaval lymphadenopathy (possible nilesh metastatic disease).
6. Multiple enhancing intramedullary osseous lesions (PROBABLE MULTIFOCAL OSSEOUS METASTATIC DISEASE).
7. Small volume of ascites.
8. Moderate-sized complex pericardial effusion (possibly hemorrhagic).
9. Minimal bilateral pleural effusions.
-Ct Abd/Pelvis with IV contrast 12/10/24: ill-defined, mildly hyperdense focus within the pancreatic head measuring approximately 2.8 cm. There is associated severe intrahepatic and extrahepatic biliary ductal dilation. Consolation of findings are
concerning for pancreatic head lesion. Recommend MRI abdomen for further evaluation.Sclerotic foci within the lumbar spine and pelvis suspicious for sclerotic osseous metastasis. Left inguinal hernia containing nonobstructed colon. Fat-containing
supraumbilical hernia. Small/moderate pericardial effusion.
-CA 19-9: 473
-CEA: 0.89
Tbili 7.1 --> 6
AST 691 --> 567
ALT 986 --> 827
Alk phos 607 --> 511
-okay for regular diet, NPO after midnight for repeat attempt at ERCP vs. EUS-guided choledochoduodenostomy tomorrow with Dr. Bernal
-hold pradaxa
-empiric antibiotic coverage with cipro
-t/c inpatient oncology consult to establish care
Subjective
Subjective
Date of Service: December 16, 2024
Patient seen in follow-up. No overnight events. Patient did not recall our conversation following her procedures with Dr. Bernal yesterday. Again, discussed the findings on imaging on recent admission, concerning for metastatic pancreatic cancer.
Unfortunately, unable to cannulate the bile duct yesterday, plan to reattempt tomorrow.
Objective
Data Reviewed
Laboratory Data:
Laboratory Results
12/16/24 07:33
Vital Signs and I&O:
Vital Signs
Temp Pulse Resp BP Pulse Ox
98 F 72 18 129/71 97
12/16/24 07:56 12/16/24 08:14 12/16/24 07:56 12/16/24 08:14 12/16/24 07:56
Physical Exam
Physical Exam
GENERAL:NAD
HEENT: +scleral icterus
RESP: Nonlabored respirations, clear to ausculation, b/l
CV: RRR, S1/S2
ABDOMEN: +BS; soft, non-tender and non-distended; no rebound or guarding
Skin: +Jaundice
[2024-12-16 08:55] LABS: ALT (SGPT) 639 U/L (0-35); AST (SGOT) 504 U/L (14-36); Albumin 3.4 g/dl (3.5-5.0); Alkaline Phosphatase 713 U/L (38-126); Blood Urea Nitrogen 20 mg/dl (7-17); Calcium 8.9 mg/dl (8.4-10.2); Carbon Dioxide 28 mmol/L (22-30); Chloride 101 mmol/L (98-107); Estimated Creatinine Clearance 69 ml/min; Glucose 116 mg/dl (70-99); Magnesium 1.8 mg/dl (1.6-2.3); Potassium 3.8 mmol/L (3.5-5.1); Sodium 136 mmol/L (135-145); Total Bilirubin 6.8 mg/dl (0.2-1.3); Total Protein 6.1 g/dl (6.3-8.2); eGFR > 60.00
--- NOTE | 2024-12-16 09:48 | W.PN.HOSP.TC ---
Today's Communication/Plan
-
Regular diet, continue Cipro per GI, hold Pradaxa and n.p.o. after midnight for procedure tomorrow
Assessment / Plan
Assessment / Plan
84 yo F PMH paroxysmal afib (pradaxa, held for procedure), orthostatic hypotension, cognitive impairment who presented to for her scheduled EUS/ERCP for evaluation of 2.8 cm pancreatic mass with severe intra and extrahepatic biliary duct
dilation. On recent previous hospitalization, her presentation and imaging was concerning for pancreatic malignancy.
Pancreatic mass 2.8 cm on prior imaging, concerning for malignancy
Biliary obstruction and jaundice
S/p EUS w FNA/ERCP with Dr. Bernal 12/15/24--pathology pending; successful pancreatic duct stent, unable to cannulate biliary duct
-GI following, appreciate recs. Plan per Dr. Bernal for hospital admission and repeat ERCP tomorrow.
-Regular diet today. N.p.o. at midnight prior to next procedure.
-Hold Pradaxa
-CBC, CMP in AM
-Empiric antibiotic coverage with Cipro per GI
Recent UTI-was discharged from hospital on 5-day course of amoxicillin-clavulanate, continued.
Orthostatic hypotension-continue home midodrine
Paroxysmal Q-sdp-lbuigwuhy NSR on admission. Continue home flecainide, metoprolol succinate. Hold Pradaxa for procedure.
Code status: Full
VTE ppx: lovenox, scds
Diet: Regular
Dispo planning: anticipate return to home at discharge
Anticipated Discharge: 24 - 48 hours
Subjective/Interval History
-
Date of Service: December 16, 2024
No acute events overnight. Reports mild abdominal discomfort, no other complaints. Review of systems negative-- denies dizziness, chest pain, shortness of breath, nausea, vomiting, diarrhea, constipation. Tolerating oral hydration, she is looking
forward to lunch today.
Objective Data
-
Labs:
Laboratory Results
12/16/24
07:33
WBC 6.6
Hgb 11.6 L
Hct 34.7 L
Plt Count 247
Sodium 136
Potassium 3.8
Chloride 101
Carbon Dioxide 28
BUN 20 H
Creatinine 0.6
Glucose 116 H
Calcium 8.9
Total Bilirubin 6.8 H
AST 504 H*
ALT 639 H*
Alkaline Phosphatase 713 H
Vital Signs:
Vital Signs
Temp Pulse Resp BP Pulse Ox
98.1 F 74 18 125/77 97
12/16/24 11:45 12/16/24 11:45 12/16/24 11:45 12/16/24 11:45 12/16/24 11:45
Review of Systems
-
History Source: Patient
All other systems: Reviewed and negative
Physical Exam
-
General: Well Developed, No Apparent Distress, Comfortable, Conversant, Obese and Other (Jaundice); Negative Pain, Fever, Chills or Sweats
HEENT: Normocephalic, Atraumatic and Other (Scleral icterus)
Respiratory: Clear to Auscultation and Non Labored Respirations; Negative Wheezes, Rhonchi or Crackles
Cardiac: Regular Rhythm and S1/S2
GI: Soft, Nondistended, Normal Bowel Sounds, Tender (Mild TTP) and Other (No rebound/rigidity/guarding)
Musculoskeletal: No Clubbing, No Cyanosis and No Edema
Skin: Warm, Dry and Jaundice
Neuro: Awake, Alert, Oriented, AO x 3 and Nonfocal/Grossly Intact
Psych: Calm and Other (Memory deficit vs confusion, repeats same question multiple times)
Data Reviewed
-
Medical Tests (Nuc Med, Echo etc): Report Reviewed by me, Discussed with Physician and Discussed with Patient
Labs: Labs Reviewed by me
Old Records: Reviewed
[2024-12-16 11:45] VITALS: BP 125/77
--- NOTE | 2024-12-16 14:32 | W.PN.UPDATE ---
Update Note
Progress Note Update
Seen and examined by me independently in collaboration with the durable medical equipment repairer Dr. Linares.
Lab data and imaging data reviewed.
Addendum as below :
Patient tolerating diet. Denies any nausea vomiting. Remains jaundiced.
Abdomen soft.
Continue with diet today. N.p.o. past midnight. For repeat ERCP and attempt to cannulized CBD tomorrow.
Continue with antibiotics prophylactically per GI.
--- NOTE | 2024-12-16 15:44 | CM ---
Met with patient and her daughter who was at bedside to obtain information for assessment. Patient stated that she lives with her spouse in Independent Living at [facility]. She described herself as independent with all of her ADLs, personal
care, dressing and bathing. She has no DME. She has not had VN. She did go to a SNF after she was discharged from having Sepsis. Her daughter stated that it is called [facility] and it is close to where she lives. Patient has no DME. She stated that
she did not have VN in the past.
Patient has a prescription plan and uses, [facility] in [place] for all of her medications.
Her PCP is, not listed.
Patient and her daughter felt that they would like for her to have VN after d/c if she does not need rehab and requested . Will put in referral.
Plan: Case management will continue to follow and assist with discharge planning. Potential SNF, VN if home.
[2024-12-16 15:58] VITALS: BP 135/65
[2024-12-16] MEDS: LOVENOX 40 MG SC (17:00)
[2024-12-16] MEDS: ZOFRAN 4 MG IV (18:16)
[2024-12-16 19:00] VITALS: BP 126/62
[2024-12-16 23:26] VITALS: BP 135/67
[2024-12-17] VITALS (12 sets, daily range): BP systolic 107–160; BP diastolic 56–78; BMI 26.3
[2024-12-17] MEDS: TUMS CHEWABLE TABLET 200 MG PO (02:53)
[2024-12-17] MEDS: CIPRO 400 MG 200 IV ×2 (05:12→17:29)
[2024-12-17] MEDS: ZOFRAN 4 MG IV ×2 (06:19→16:52)
[2024-12-17 06:50] LABS: Hematocrit 36.4 % (37.0-47.0); Hemoglobin 12.2 g/dL (12.0-16.0); Mean Corp Hgb Conc. 33.5 g/dL (33.0-37.0); Mean Corpuscular Hgb 28.2 pg (27.0-31.0); Mean Corpuscular Volume 84.1 fL (81.0-99.0); Platelet Count 224 10^3/uL (130-400); Red Blood Cell Count 4.33 10^6/uL (4.20-5.40); Red Cell Dist. Width 15.3 % (11.5-14.5); White Blood Cell Count 5.5 10^3/uL (4.8-10.8)
[2024-12-17 07:11] LABS: ALT (SGPT) 588 U/L (0-35); AST (SGOT) 472 U/L (14-36); Albumin 3.2 g/dl (3.5-5.0); Alkaline Phosphatase 713 U/L (38-126); Blood Urea Nitrogen 22 mg/dl (7-17); Calcium 8.9 mg/dl (8.4-10.2); Carbon Dioxide 27 mmol/L (22-30); Chloride 102 mmol/L (98-107); Estimated Creatinine Clearance 60 ml/min; Glucose 122 mg/dl (70-99); Magnesium 1.9 mg/dl (1.6-2.3); Potassium 3.6 mmol/L (3.5-5.1); Sodium 136 mmol/L (135-145); Total Bilirubin 7.5 mg/dl (0.2-1.3); Total Protein 5.8 g/dl (6.3-8.2); eGFR > 60.00
--- NOTE | 2024-12-17 08:21 | W.PN.HOSP.TC ---
Addendum entered and electronically signed by Ted Aguirre MD 12/17/24 13:48:
Seen and examined by me independently in collaboration with the certified medical coder .
Lab data and imaging data reviewed.
Addendum as below :
Pt asks me today if she has pancreatic cancer . Told her all available data suggests it but no tissue diagnosis avaiable .FNAC of pancreatic head pending. Asks me about tx options an survival- consult Onc.
For repeat ERCP and biliary stenting today.
Original Note:
Today's Communication/Plan
-
N.p.o., ERCP today with Dr. Bernal, continue antibiotics per GI, supportive measures
Assessment / Plan
Assessment / Plan
84 yo F PMH paroxysmal afib (pradaxa, held for procedure), orthostatic hypotension, cognitive impairment who presented to for her scheduled EUS/ERCP for evaluation of 2.8 cm pancreatic mass with severe intra and extrahepatic biliary duct
dilation. On recent previous hospitalization, her presentation and imaging was concerning for pancreatic malignancy.
Pancreatic mass 2.8 cm on prior imaging, concerning for malignancy
Biliary obstruction and jaundice
S/p EUS w FNA/ERCP with Dr. Bernal 12/15/24--pathology pending; successful pancreatic duct stent, unable to cannulate biliary duct
-GI following, appreciate recs. Plan per Dr. Bernal for hospital admission and repeat ERCP vs EUS guided choledochoduodenostomy today.
-N.p.o. prior to next procedure.
-Hold Pradaxa
-Trend CBC, CMP. T. bili, AST, ALT, alk phos remain elevated.
-Prophylactic antibiotic coverage with Cipro per GI
-Supportive measures, PRN Toradol/Dilaudid/Zofran
-Consider inpatient consult vs outpatient follow up with oncology
Recent UTI-resolved; s/p 5-day course of amoxicillin-clavulanate.
Orthostatic hypotension-continue home midodrine.
Paroxysmal M-sun-[id number] NSR on admission. Continue home flecainide, metoprolol succinate. Hold Pradaxa for procedure.
Code status: Full
VTE ppx: lovenox, scds
Diet: N.p.o.
Dispo planning: anticipate return to home at discharge
Anticipated Discharge: Within 24 hours
Subjective/Interval History
-
Date of Service: December 17, 2024
No acute events overnight. Yesterday had some nausea, and 1 episode of emesis after lunch. This morning, no complaints; minimal abdominal discomfort. Review of systems negative-- denies dizziness, chest pain, shortness of breath, abdominal pain,
nausea currently, vomiting today, diarrhea, constipation. OOB to BR. Last BM yesterday.
Objective Data
-
Labs:
Laboratory Results
12/17/24
06:14
WBC 5.5
Hgb 12.2
Hct 36.4 L
Plt Count 224
Sodium 136
Potassium 3.6
Chloride 102
Carbon Dioxide 27
BUN 22 H
Creatinine 0.6
Glucose 122 H
Calcium 8.9
Total Bilirubin 7.5 H
AST 472 H
ALT 588 H*
Alkaline Phosphatase 713 H
Vital Signs:
Vital Signs
Temp Pulse Resp BP Pulse Ox
98.1 F 76 18 107/56 95
12/17/24 06:58 12/17/24 06:58 12/17/24 06:58 12/17/24 06:58 12/17/24 06:58
Review of Systems
-
History Source: Patient
All other systems: Reviewed and negative
Physical Exam
-
General: Well Developed, No Apparent Distress, Comfortable, Conversant, Obese and Other (Jaundice); Negative Pain, Fever, Chills or Sweats
HEENT: Normocephalic, Atraumatic and Other (Scleral icterus)
Respiratory: Clear to Auscultation and Non Labored Respirations; Negative Wheezes, Rhonchi or Crackles
Cardiac: Regular Rhythm and S1/S2
GI: Soft, Nondistended, Normal Bowel Sounds, Tender (Minimal TTP diffusely) and Other (No rebound/rigidity/guarding)
Musculoskeletal: No Clubbing, No Cyanosis and No Edema
Skin: Warm, Dry and Jaundice
Neuro: Awake, Alert, Oriented, AO x 3 and Nonfocal/Grossly Intact
Psych: Calm
Data Reviewed
-
CT Scan: Image personally visualized and interpreted and Report Reviewed by me
Medical Tests (Nuc Med, Echo etc): Report Reviewed by me, Discussed with Physician and Discussed with Patient
Labs: Labs Reviewed by me
Old Records: Reviewed
[2024-12-17] MEDS: TAMBOCOR 50 MG PO ×2 (08:25→19:52)
[2024-12-17] MEDS: TOPROL XL 25 MG PO (08:25)
[2024-12-17] MEDS: ProAmatine 10 MG PO (08:25)
[2024-12-17] MEDS: FLUSH (NSS) 1 FLUSH IV (08:34)
--- NOTE | 2024-12-17 10:51 | VNURNOTE ---
Pool Cleaner met with patient to discuss [facility] nurse/therapy, visits, schedule and homebound status. Patient is agreeable and understands that visits at home will be 2-3 x per week to assess and teach medical management.
[facility] contact information provided. Patient is aware that [facility] will contact them for start of care after discharge from .
[facility] referral completed in [facility].
Spoke to Dgt Beverly Pan [phone]. Patient and dgt do not know who her PCP. VN called Faby Hannah and confirmed PCP id Dr. Lynn
--- NOTE | 2024-12-17 16:49 | PTCARENOTE ---
received from PACU post ERCP- some nausea when initially placed in room- vomited small amoutn of fluid- vitals noted. zofran given as ordered. at bedside. call charlton in reach.plan of care on going.
[2024-12-17] MEDS: FLUSH (NSS) 2 FLUSH IV ×2 (16:52→17:30)
[2024-12-17] MEDS: LOVENOX 40 MG SC (17:29)
[2024-12-17] MEDS: ProAmatine PO ×2 (17:30→17:34)
[2024-12-18 03:36] VITALS: BP 123/71
[2024-12-18] MEDS: FLUSH (NSS) 1 FLUSH IV (05:42)
[2024-12-18] MEDS: CIPRO 400 MG 200 IV (05:42)
[2024-12-18 06:59] LABS: Hematocrit 35.9 % (37.0-47.0); Hemoglobin 12.1 g/dL (12.0-16.0); Mean Corp Hgb Conc. 33.7 g/dL (33.0-37.0); Mean Corpuscular Hgb 28.3 pg (27.0-31.0); Mean Corpuscular Volume 83.9 fL (81.0-99.0); Mean Platelet Volume 10.8 fL (7.4-10.4); Platelet Count 211 10^3/uL (130-400); Red Blood Cell Count 4.28 10^6/uL (4.20-5.40); Red Cell Dist. Width 15.2 % (11.5-14.5); White Blood Cell Count 4.5 10^3/uL (4.8-10.8)
[2024-12-18 07:27] LABS: ALT (SGPT) 485 U/L (0-35); AST (SGOT) 291 U/L (14-36); Albumin 3.3 g/dl (3.5-5.0); Alkaline Phosphatase 650 U/L (38-126); Blood Urea Nitrogen 21 mg/dl (7-17); Calcium 8.6 mg/dl (8.4-10.2); Carbon Dioxide 24 mmol/L (22-30); Chloride 102 mmol/L (98-107); Estimated Creatinine Clearance 60 ml/min; Glucose 126 mg/dl (70-99); Magnesium 1.8 mg/dl (1.6-2.3); Potassium 3.6 mmol/L (3.5-5.1); Sodium 136 mmol/L (135-145); Total Bilirubin 3.7 mg/dl (0.2-1.3); Total Protein 5.9 g/dl (6.3-8.2); eGFR > 60.00
[2024-12-18 07:56] VITALS: BP 128/78
--- NOTE | 2024-12-18 08:33 | W.PN.GI.CBS2 ---
Today's Communication / Plan
-
Advance diet. Resume pradaxa TOMORROW. Oncology consult. F/u with Dr. Bernal in 4 months. GI will sign off, please call with questions
Assessment / Plan
-
84 y.o. female with likely new diagnosis of widely metastatic pancreatic malignancy with biliary obstruction admitted following EUS w/ FNA and failed attempt at ERCP on 12/15 and 12/17 due to duodenal deformity/congested appearance of the major papilla.
She subsequently had successful placement of choledochoduodenostomy w/ LAMS, LFTs improving.
- ERCP 12/17/24: -failed attempt at cannulation due to edematous/congested major papilla and duodenum. EUS-guided choledochoduodenostomy w/ LAMS (axios) performed
-EUS 12/15/24: - A mass was identified in the pancreatic head. This
was staged T2 Nx Mx by endosonographic criteria. Fine
needle aspiration performed.
- There was dilation in the common bile duct which
measured up to 17 mm.
- There was no evidence of significant pathology in
the left lobe of the liver.
- Two enlarged lymph nodes were visualized in the
peripancreatic region.
-ERCP 12/15/24: Severe extrinsic deformity found in the first portion the duodenum and the second portion of the duodenum. A few severely congested mucosa without active bleeding or stigmata of recent bleeding in the first and second portion the
duodenum. Difficult to locate the major papilla, the ventral pancreatic duct was inadvertently cannulated. The bile duct was unable to be cannulated. Plastic stent with a full external pigtail placed 5 cm into the ventral pancreatic duct.
-MRI/MRCP 12/11/24:
1. PANCREATIC HEAD CANCER completely obstructing the common bile duct and encasing the portal vein-superior mesenteric vein confluence which is severely narrowed. Complete thrombosis of the splenic vein. Other regions of signal abnormality in the
pancreatic body and tail suggesting pancreatic malignancy. Inferior extension of infiltrative pancreatic malignancy into the small bowel mesentery.
2. SEVERE COMMON BILE DUCT OBSTRUCTION with severe distention of the proximal extrahepatic bile ducts and intrahepatic bile ducts.
3. 5 mm enhancing lesion in the right lobe of the liver (possible hepatic metastasis).
4. 7.4 mm enhancing lesion in the right subhepatic space (possible peritoneal metastasis).
5. Mild kita hepatis and portacaval lymphadenopathy (possible nilesh metastatic disease).
6. Multiple enhancing intramedullary osseous lesions (PROBABLE MULTIFOCAL OSSEOUS METASTATIC DISEASE).
7. Small volume of ascites.
8. Moderate-sized complex pericardial effusion (possibly hemorrhagic).
9. Minimal bilateral pleural effusions.
-Ct Abd/Pelvis with IV contrast 12/10/24: ill-defined, mildly hyperdense focus within the pancreatic head measuring approximately 2.8 cm. There is associated severe intrahepatic and extrahepatic biliary ductal dilation. Consolation of findings are
concerning for pancreatic head lesion. Recommend MRI abdomen for further evaluation.Sclerotic foci within the lumbar spine and pelvis suspicious for sclerotic osseous metastasis. Left inguinal hernia containing nonobstructed colon. Fat-containing
supraumbilical hernia. Small/moderate pericardial effusion.
-CA 19-9: 473
-CEA: 0.89
Tbili 7.1 --> 6--> 3.7
AST 691 --> 567--> 291
ALT 986 --> 827--> 485
Alk phos 607 --> 511-->713 --> 650
-okay for regular diet
-oncology consult pending
- cytology pending
-recommend completing 5 day course of abx
-okay to resume pradaxa tomorrow, 12/19
-outpatient f/u with Dr. Bernal in 4 months, our office will call her to schedule
GI will sign off, please call with questions.
Subjective
Subjective
Date of Service: December 18, 2024
Patient seen in follow-up this morning, reports feeling well. LFTs are all improving. She is s/p reattempt at ERCP, but attempt failed cannulation due to congested duodenal mucosa, and edematous and congested appearance of the major papilla.
Gabe then performed an EUS guided choledochoduodenostomy LAMS (axios) placement.
Objective
Data Reviewed
Laboratory Data:
Laboratory Results
12/18/24 06:34
12/18/24 06:34
Laboratory Results
Magnesium 1.8 mg/dl (1.6-2.3) 12/18/24 06:34
Total Bilirubin 3.7 mg/dl (0.2-1.3) H D 12/18/24 06:34
AST 291 U/L (14-36) H 12/18/24 06:34
ALT 485 U/L (0-35) H 12/18/24 06:34
Alkaline Phosphatase 650 U/L (38-126) H 12/18/24 06:34
Vital Signs and I&O:
Vital Signs
Temp Pulse Resp BP Pulse Ox
98.4 F 71 18 128/78 98
12/18/24 07:56 12/18/24 07:56 12/18/24 07:56 12/18/24 07:56 12/18/24 07:56
I&O
12/17/24 12/18/24 12/19/24
06:59 06:59 06:59
Intake Total 400 / 400
Balance 400 / 400
Physical Exam
Physical Exam
GENERAL:NAD
HEENT: +scleral icterus
RESP: Nonlabored respirations, clear to ausculation, b/l
CV: RRR, S1/S2
ABDOMEN: +BS; soft, non-tender and non-distended; no rebound or guarding
Skin: +Jaundice
[2024-12-18] MEDS: TAMBOCOR 50 MG PO (09:00)
[2024-12-18] MEDS: TOPROL XL 25 MG PO (09:01)
--- NOTE | 2024-12-18 09:35 | CON.ONC ---
Documented by User: [email or web address] Ballard 12/18/24 11:02
Impression
Impression
suspected metastatic pancreatic cancer to liver, bones, LN
Ca 19.9 473
s/p EUS-guided choledochoduodenostomy w/ LAMS/EUS with Dr. Bernal 12/17/2024
improving LFTs
independent living, independent in ADLs
Plan
Plan
follow for pathology
symptom support
Discussed suspected metastatic malignnacy with pt and today. She reports a good performance status. We reviewed palliative and comfort focused goals. She reports that her goals are restorative so I will arrange for OP follow up in the
office to review pathology and options for palliative systemic therapy. However, with advanced age and suspected metastatic malignancy comfort focused care is appropriate if pt does not want to pursue antineoplastic therapy if malignancy is
confirmed.
Patient History
History of Present Illness
84yo F presented 12/15 for elective EUS/ERCP for evaluation of pancreatic head mass. She presented to the ER 12/10 with chief complaint of increased abdominal distention and abdominal discomfort. Her CT ab/pelvis revealed 2.8 cm pancreatic mass with
severe intra and extrahepatic biliary duct dilation. Her LFTs were also elevated. MRCP/MRI 12/11 showed a pancreatic head mass completely obstructing the CBD and encasing the portal vein-superior mesenteric vein confluence which is severely narrowed.
Severe CBD dilation with severe distention of the proximal extrahepatic bile ducts and intrahepatic bile ducts. 5 mm enhancing lesion in the right lobe of the liver, 7.4 mm enhancing lesion in the right subhepatic space. Mild kita hepatis and
portacaval lymphadenopathy. Multiple enhancing intramedullary osseous lesions. Small amount of ascites. Moderate-sized complex pericardial effusion. Minimal bilateral pleural effusions. She had a failed attempt ERCP due to edematous/congested major
papilla and duodenum. She underwent EUS-guided choledochoduodenostomy w/ LAMS/EUS with Dr. Bernal 12/17/2024 which identified a mass in the pancreatic head, dilatation in the CBD, no significant pathology in the left lobe of the liver, and [address]
in peripancreatic region. FNA of the pancreatic head pathology is pending. CEA 0.89, Ca 19.9 473. LFTs improved post stent placement.
Clinically, she reports several months of decreased appetite, 20lb unintentional weight loss, nausea, and epigastric discomfort. She denies fever, chills, cough, chest pain, SOB at rest, headache or dizziness.
Past-Medical/Surgical History
PMH Paroxysmal atrial fibrillation, GERD, Orthostatic hypotension, cognitive impairment
PSH Appendectomy, Cholecystectomy, hysterectomy, hernia repair, bunionectomy, ureteral stent
Social denies tobacco, ETOH, or recreational drug use
Family denies malgnancy
Patient Medication
�Medication �Instructions �Recorded �Confirmed �Last Taken �Type
calcium carbonate (Tums) 200 mg PO BIDPRN PRN gerd 12/10/24 12/15/24 12/09/24 History
dabigatran etexilate 150 mg 150 mg PO BID Blood Clot 12/10/24 12/15/24 12/10/24 History
capsule (Pradaxa) Prevention/Tx
flecainide 50 mg tablet 50 mg PO Q12H Arrhythmia 12/10/24 12/15/24 12/14/24 20:00 History
metoprolol succinate 25 mg 25 mg PO DAILY Heart 12/10/24 12/15/24 12/14/24 08:00 History
tablet,extended release 24 hr Disease/Condition
(Toprol XL)
midodrine 10 mg tablet 10 mg PO BID Blood Pressure 12/10/24 12/15/24 12/14/24 20:00 History
omeprazole 20 mg capsule,delayed 20 mg PO DAILYPRN PRN gerd 12/10/24 12/15/24 12/09/24 History
release
amoxicillin 875 mg-potassium 1 tab PO Q12 5 days #10 tabs 12/11/24 12/15/24 12/14/24 20:00 Rx
clavulanate 125 mg tablet
Active Medications
Generic Name Dose Route Start Last Admin
Trade Name Freq PRN Reason Stop Dose Admin
Calcium Carbonate 200 mg 12/15/24 17:31 12/17/24 02:53
Calcium Antacid 200 Mg (Calcium Carbonate 500 Mg) Chew Tablet PO 01/12/25 17:30 200 mg
BIDPRN PRN Administration
gerd
Enoxaparin Sodium 40 mg 12/15/24 18:00 12/17/24 17:29
Enoxaparin Sodium 40 Mg/0.4 Ml Syringe SC 01/12/25 17:59 40 mg
QPM TONIA Administration
Flecainide Acetate 50 mg 12/15/24 20:00 12/18/24 09:00
Flecainide 50 Mg Tablet PO 01/12/25 19:59 50 mg
Q12 TONIA Administration
Hydromorphone HCl 0.25 mg 12/15/24 17:43
Hydromorphone 0.25 Mg/0.5 Ml Syringe IV 12/29/24 17:42
Q4HPRN PRN
severe pain
Ciprofloxacin/Dextrose 200 mls @ 200 mls/hr 12/15/24 18:00 12/18/24 05:42
Cipro 400 Mg IV 200 mls
Q12H TONIA Administration
Ketorolac Tromethamine 10 mg 12/15/24 17:31
Ketorolac 15 Mg/Ml Injection IV 12/20/24 17:30
Q6HPRN PRN
mild-moderate pain
Metoprolol Succinate 25 mg 12/16/24 08:00 12/18/24 09:01
Metoprolol 25 Mg Extended Release Tablet PO 01/13/25 07:59 25 mg
DAILY TONIA Administration
Midodrine 10 mg 12/15/24 18:00 12/17/24 17:34
Midodrine 5 Mg Tablet PO 01/12/25 17:59 Not Given
BID@0800,1800 TONIA
Ondansetron HCl 4 mg 12/15/24 17:31 12/17/24 16:52
Ondansetron 4 Mg/2 Ml Vial IV 01/12/25 17:30 4 mg
Q6HPRN PRN Administration
nausea and vomiting
Sodium Chloride 0 flush 12/15/24 18:00
Sodium Chloride 0.9% (Flush) Syringe IV 01/12/25 17:59
PER PROTOCOL TONIA
Sodium Chloride 0 flush 12/17/24 09:00 12/18/24 05:42
Sodium Chloride 0.9% (Flush) Syringe IV 01/14/25 08:59 1 flush
PER PROTOCOL TONIA Administration
Review of Systems
-
ROS is notable for HPI, otherwise negative
Physical Exam
-
General: No Apparent Distress
HEENT: Jaundice and Moist Mucous Membranes
Cardiology: Irregular Rate/Rhythm
Pulmonary: Clear
GI: Soft
Extremities: Pulses Present; Negative Edema
Neurology: Non Focal
Labs
Lab Results
WBC 4.5 10^3/uL (4.8-10.8) L 12/18/24 06:34
RBC 4.28 10^6/uL (4.20-5.40) 12/18/24 06:34
Hgb 12.1 g/dL (12.0-16.0) 12/18/24 06:34
Hct 35.9 % (37.0-47.0) L 12/18/24 06:34
MCV 83.9 fL (81.0-99.0) 12/18/24 06:34
MCH 28.3 pg (27.0-31.0) 12/18/24 06:34
MCHC 33.7 g/dL (33.0-37.0) 12/18/24 06:34
RDW 15.2 % (11.5-14.5) H 12/18/24 06:34
Plt Count 211 10^3/uL (130-400) 12/18/24 06:34
MPV 10.8 fL (7.4-10.4) H 12/18/24 06:34
Creatinine 0.6 mg/dL (0.6-1.0) 12/18/24 06:34
Vital Signs
Vital Signs
Temp Pulse Resp BP Pulse Ox
98.4 F 74 18 128/78 98
12/18/24 07:56 12/18/24 09:01 12/18/24 07:56 12/18/24 09:01 12/18/24 07:56

Documented by User: Mao Poe MD 12/18/24 12:38
Impression
Impression
suspected metastatic pancreatic cancer to liver, bones, LN
Ca 19.9 473
s/p EUS-guided choledochoduodenostomy w/ LAMS/EUS with Dr. Bernal 12/17/2024
improving LFTs
independent living, independent in ADLs
Oncology Addendum:
Patient seen and evaluated and agree w/ [employer] OPERATOR note and plan as outlined
-await pathology from EGD/EUS - ERCP
-LTFs improving post stent
-Ca 19-9 elevated
-additional staging PET/CT imaging as outpt
Will continue to follow with you.
[2024-12-18] MEDS: ProAmatine 10 MG PO (10:14)
--- NOTE | 2024-12-18 11:29 | CM ---
hotel general manager reviewed patient's chart and met with patient and plan is to return to [facility], with [facility].
Plan; Patient to return to [facility] with [facility].
[2024-12-18 11:34] VITALS: BP 108/68
--- NOTE | 2024-12-18 13:09 | W.PN.HOSP.TC ---
Addendum entered and electronically signed by Ted Aguirre MD 12/18/24 14:06:
Seen and examined by me independently in collaboration with the medical reimbursement manager Dr. Linares.
Lab data and imaging data reviewed.
Addendum as below :
Status post choledocho duodenostomy. Patient denies abdominal pain. Tolerating diet. LFTs are improving. Await pathology report. Suspicion is for metastatic pancreatic cancer.
Reviewed by oncology today-patient goals are restorative so they are going to arrange follow-up as an outpatient to review pathology and options for palliative systemic therapy.
DC home today once she tolerates diet.
Total time of dc 32 min
Original Note:
Today's Communication/Plan
-
Oncology consult, continue antibiotics, hold pradaxa, orthostatic VS
Assessment / Plan
Assessment / Plan
84 yo F PMH paroxysmal afib (pradaxa, held for procedure), orthostatic hypotension, cognitive impairment who presented to for her scheduled EUS/ERCP for evaluation of 2.8 cm pancreatic mass with severe intra and extrahepatic biliary duct
dilation. On recent previous hospitalization, her presentation and imaging was concerning for pancreatic malignancy.
Pancreatic mass, concerning for malignancy
Biliary obstruction and jaundice
S/p EUS w FNA/ERCP with Dr. Bernal 12/15/24--pathology pending; successful pancreatic duct stent, unable to cannulate biliary duct
S/p EUS guided choledochoduodenostomy w LAMS with Dr. Bernal 12/17/24
-Apprec GI. Prophylactic cipro started 12/15. Continue 5 day course of ppx abx per GI.
-Hold pradaxa today-- can resume tomorrow.
-LFTs remain elevated but now downtrending.
-Will need GI outpatient follow up with Dr Bernal in 4 months.
-Oncology consult inpatient, will need to follow up outpatient as well.
-Supportive measures, zofran prn
Recent UTI-resolved; s/p 5-day course of amoxicillin-clavulanate.
Orthostatic hypotension-continue home midodrine. Check orthostatic VS.
Paroxysmal W-svz-tupbcjrya NSR on admission. Continue home flecainide, metoprolol succinate. Pradaxa as above.
Code status: Full
VTE ppx: lovenox, scds
Diet: regular
Dispo planning: anticipate return to home at discharge
Anticipated Discharge: Today
Subjective/Interval History
-
Date of Service: December 18, 2024
No acute events overnight. No complaints this morning including abdominal pain. Review of systems negative-- denies dizziness, chest pain, shortness of breath, abdominal pain, nausea, vomiting, diarrhea, constipation. Last BM 1 to 2 days ago.
Objective Data
-
Labs:
Laboratory Results
12/18/24
06:34
WBC 4.5 L
Hgb 12.1
Hct 35.9 L
Plt Count 211
Sodium 136
Potassium 3.6
Chloride 102
Carbon Dioxide 24
BUN 21 H
Creatinine 0.6
Glucose 126 H
Calcium 8.6
Total Bilirubin 3.7 H D
AST 291 H
ALT 485 H
Alkaline Phosphatase 650 H
Vital Signs:
Vital Signs
Temp Pulse Resp BP Pulse Ox
98.2 F 58 18 108/68 97
12/18/24 11:34 12/18/24 11:34 12/18/24 11:34 12/18/24 11:34 12/18/24 11:34
I&O
12/17/24 12/18/24 12/19/24
06:59 06:59 06:59
Intake Total 475 / 475
Balance 475 / 475
Review of Systems
-
History Source: Patient
All other systems: Reviewed and negative
Physical Exam
-
General: Well Developed, No Apparent Distress, Comfortable, Conversant, Obese and Other (Jaundice improving); Negative Pain, Fever, Chills or Sweats
HEENT: Normocephalic, Atraumatic and Other (Scleral icterus)
Respiratory: Clear to Auscultation and Non Labored Respirations; Negative Wheezes, Rhonchi or Crackles
Cardiac: Regular Rhythm and S1/S2
GI: Soft, Nontender, Nondistended, Normal Bowel Sounds and Other (No rebound/rigidity/guarding)
Musculoskeletal: No Clubbing, No Cyanosis and Other (Trace edema bilateral lower extremities)
Skin: Warm, Dry and Jaundice
Neuro: Awake, Alert, Oriented, AO x 3 and Nonfocal/Grossly Intact
Psych: Calm
Data Reviewed
-
CT Scan: Image personally visualized and interpreted and Report Reviewed by me
Medical Tests (Nuc Med, Echo etc): Report Reviewed by me, Discussed with Physician and Discussed with Patient
Labs: Labs Reviewed by me
Old Records: Reviewed
[2024-12-18 14:39] VITALS: BMI 26.3
[2024-12-18 15:37] VITALS: BP 129/74
[2024-12-18 16:43] VITALS: BP 123/62; BP 129/69; BP 133/68; PULSE 67; PULSE 69; PULSE 73
--- NOTE | 2024-12-18 17:44 | W.DCSUMMARY ---
Discharge Summary
Discharge Data
Date of Admission: 12/15/24
Date of Discharge: 12/18/24
-
Pending Results: Yes
Additional Pending Results:
12/15/24 pathology
Hospital Course
Discharging Physician : Dr. Linares/Dr. Aguirre
Disposition : Home
Primary care physician : Unknown
Principal Discharge diagnosis :
Pancreatic mass concerning for malignancy
Elevated liver enzymes
Procedures:
12/15/24: Endoscopy with ultrasound, fine needle aspiration, retrograde cholangiopancreatography, plastic stent ventral pancreatic duct
12/17/24: Endoscopic ultrasound-guided choledochoduodenostomy stent
Chronic Discharge diagnosis :
Paroxysmal atrial fibrillation
Orthostatic hypotension
Hospital Course :
Presented to the hospital for her scheduled EUS/ERCP to evaluate of recently diagnosed pancreatic mass with severe intra and extrahepatic biliary duct dilation. GI was following throughout hospitalization. She underwent EUS with FNA and ERCP on
12/15; stent was placed in pancreatic duct, but unable to cannulate biliary duct. She was admitted to the hospital with plan to attempt again in 2 days. She underwent EUS guided choledochoduodenostomy on 12/17. She received prophylactic ciprofloxacin
starting 12/15, and will continue 2 additional days of oral ciprofloxacin at discharge. Her Pradaxa was held prior to initial procedure, and she can resume taking it tomorrow. Oncology was consulted. She will follow-up with oncology and GI
outpatient. On day of discharge she was stable.
Procedure findings :
EUS 12/15/2024
Impression: - Normal esophagus.
- No gross lesions in the entire stomach.
- Normal duodenal bulb, first portion of the duodenum
and second portion of the duodenum.
- A mass was identified in the pancreatic head. This
was staged T2 Nx Mx by endosonographic criteria. Fine
needle aspiration performed.
- There was dilation in the common bile duct which
measured up to 17 mm.
- There was no evidence of significant pathology in
the left lobe of the liver.
- Two enlarged lymph nodes were visualized in the
peripancreatic region.
ERCP 12/15/2024
Impression: - Duodenal deformity.
- Congested duodenal mucosa.
- The major papilla appeared to be small.
- One plastic stent was placed into the ventral
pancreatic duct.
EUS 12/17/2024
Impression: - There was dilation in the common bile duct which
measured up to 20 mm.
- EUS-guided choledochoduodenostomy 8 x 8 mm LAMS
([employer]) was successfully placed under endosonographic
and fluroscopic guidance.
- No specimens collected.
ERCP 12/17/2024
Impression: - Congested duodenal mucosa.
- One stent from the pancreatic duct was seen in the
major papilla.
- The major papilla appeared edematous.
- The major papilla appeared congested.
- Repeat attempt with failed cannulation. EUS guided
choledochoduodenostomy LAMS ([employer]) placement
performed successfully.
- The left main hepatic duct, right main hepatic duct
and common bile duct were moderately dilated.
- Choledochoduodenostomy fistula tract was
successfully dilated.
- One plastic stent was placed into the left hepatic
duct via LAMS.
Discharge Plan
-
Patient Disposition: Home (Routine Discharge)
Discharge Diagnosis/Procedures: Pancreatic mass concerning for malignancy
Elevated liver enzymes
Procedures:
12/15/24: Endoscopy with ultrasound, fine needle aspiration, retrograde cholangiopancreatography, plastic stent ventral pancreatic duct
12/17/24: Endoscopic ultrasound-guided choledochoduodenostomy stent
Condition: Good
Diet: As tolerated and Regular
Activity: As tolerated
Driving Restrictions: Not until seen by your Dr
Bathing Restrictions: OK to Shower
Instructions: Preventing falls in adults, Biliary Stent Placement
Referrals:
Damon Eric DO [Active] - in one to two weeks (Call the Oncology office to schedule an appointment.)
Jj Liriano MD, Resident [Family Practice Resident Year1] - in less than 1 week (Call your Primary Care to schedule an appointment within 1 week. If you do not have a PCP, please call the Family Medicine Residency Practice.)
Ravinder Bernal MD [Active] - 04/26/25 10:15 am (You have an appointment scheduled with the Gastroenterology (GI) office. )
Additional Discharge Medication Instructions: You can restart PRADAXA (aka dabigatran) tomorrow, on Tuesday 12/19.
Take CIPROFLOXICIN two times per day until Wednesday 12/20.
Stop taking amoxicillin.
For medication questions or refills, call your Primary Care.
Prescriptions:
New
ciprofloxacin HCl 500 mg tablet
500 mg PO BID 2 Days Qty: 4 0RF
Continued
flecainide 50 mg Tablet
50 mg PO Q12H
calcium carbonate [Tums] 200 mg calcium (500 mg) Tablet,Chewable
200 mg PO BIDPRN PRN (Reason: gerd)
omeprazole 20 mg Capsule,Delayed Release(Dr/Ec)
20 mg PO DAILYPRN PRN (Reason: gerd)
metoprolol succinate [Toprol XL] 25 mg Tablet Extended Release 24 Hr
25 mg PO DAILY
midodrine 10 mg Tablet
10 mg PO BID
Held
dabigatran etexilate [Pradaxa] 150 mg Capsule
150 mg PO BID
Hold Instructions: Resume on 12/19/24. Resume on Saturday12/19/24
Discontinued
amoxicillin-pot clavulanate 875-125 mg Tablet
1 tab PO Q12 5 Days Qty: 10 0RF
Discharge Orders:
Discharge Patient (As Directed); Ordered 12/18/24
Ordered By: Kim Linares
Discharge Date and Time
Print Language: ARABIC
[2024-12-18] MEDS: LOVENOX SC (18:13)
== END 2024-12-18 17:59 | disposition home health service (06) | DRG 435 ==
LOC: 4 EAST ACU 16:42
PROVIDERS: Internal Medicine Gastroenterology; Radiology Diagnostic Radiology; Student in an Organized Health Care Education/Training Program; ADMITTING PHYSICIAN Internal Medicine; CONSULT PHYSICIAN Internal Medicine; OTHER PHYSICIAN Internal Medicine Hematology & Oncology
PROC: 0F7D8DZ Dilation of Pancreatic Duct with Intraluminal Device, Via Natural or Artificial Opening Endoscopic (ICD-10-PCS; 2024-12-15)
PROC: BF111ZZ Fluoroscopy of Biliary and Pancreatic Ducts using Low Osmolar Contrast (ICD-10-PCS; 2024-12-15)
PROC: 0F9G8ZX Drainage of Pancreas, Via Natural or Artificial Opening Endoscopic, Diagnostic (ICD-10-PCS; 2024-12-15)
PROC: BF101ZZ Fluoroscopy of Bile Ducts using Low Osmolar Contrast (ICD-10-PCS; 2024-12-17)
PROC: 0F798ZZ Dilation of Common Bile Duct, Via Natural or Artificial Opening Endoscopic (ICD-10-PCS; 2024-12-17)
PROC: 0F7D8ZZ Dilation of Pancreatic Duct, Via Natural or Artificial Opening Endoscopic (ICD-10-PCS; 2024-12-17)
PROC: 0F9 Hepatobiliary System and Pancreas, Drainage (ICD-10-PCS; 2024-12-17)
DX: C25.0 Malignant neoplasm of head of pancreas (principal); K83.1 Obstruction of bile duct; C79.51 Secondary malignant neoplasm of bone; R18.8 Other ascites; I31.39 Other pericardial effusion (noninflammatory); J90 Pleural effusion, not elsewhere classified; N39.0 Urinary tract infection, site not specified; C78.7 Secondary malignant neoplasm of liver and intrahepatic bile duct; C77.2 Secondary and unspecified malignant neoplasm of intra-abdominal lymph nodes; C78.6 Secondary malignant neoplasm of retroperitoneum and peritoneum; I48.0 Paroxysmal atrial fibrillation; I10 Essential (primary) hypertension; I95.1 Orthostatic hypotension; K21.9 Gastro-esophageal reflux disease without esophagitis; R41.89 Other symptoms and signs involving cognitive functions and awareness; R59.0 Localized enlarged lymph nodes; D73.5 Infarction of spleen; K40.90 Unilateral inguinal hernia, without obstruction or gangrene, not specified as recurrent; K31.89 Other diseases of stomach and duodenum; R74.8 Abnormal levels of other serum enzymes; Z96.89 Presence of other specified functional implants; Z90.49 Acquired absence of other specified parts of digestive tract; Z90.710 Acquired absence of both cervix and uterus; Z88.8 Allergy status to other drugs, medicaments and biological substances
CPT/HCPCS: 88173; 88305; 74330; 76000; 80053; 83735; 85027; 93005; C1726; C1769; C1874; C2617

== ENCOUNTER → 2025-01-04 16:47 | Outpatient (REF) | payer MEDICARE, OTHER, SELFPAY ==
[2025-01-04 17:32] LABS: % Basophils 0.6 % (0-2); % Eosinophils 1.5 % (0-6); % Immature Granulocytes 0.4 % (0-0.5); % Lymphocytes 28.5 % (20.5-51.1); % Monocytes 9.4 % (1.7-9.3); % Neutrophils 59.6 % (42.2-75.2); Absolute Eosinophils 0.1 10^3/uL (0-0.7); Absolute Lymphocytes 2.1 10^3/uL (1.2-3.4); Absolute Monocytes 0.7 10^3/uL (0.1-0.6); Absolute Neutrophils 4.3 10^3/uL (1.4-6.5); Hematocrit 37.6 % (37.0-47.0); Hemoglobin 12.2 g/dL (12.0-16.0); Mean Corp Hgb Conc. 32.4 g/dL (33.0-37.0); Mean Corpuscular Volume 86.4 fL (81.0-99.0); Mean Platelet Volume 10.7 fL (7.4-10.4); Nucleated Red Blood Cells % 0 %; Platelet Count 329 10^3/uL (130-400); Red Blood Cell Count 4.35 10^6/uL (4.20-5.40); Red Cell Dist. Width 14.3 % (11.5-14.5); White Blood Cell Count 7.3 10^3/uL (4.8-10.8)
[2025-01-04 17:42] LABS: ALT (SGPT) 33 U/L (0-35); AST (SGOT) 28 U/L (14-36); Albumin 4.1 g/dl (3.5-5.0); Alkaline Phosphatase 214 U/L (38-126); Blood Urea Nitrogen 18 mg/dl (7-17); Calcium 9.6 mg/dl (8.4-10.2); Carbon Dioxide 28 mmol/L (22-30); Chloride 101 mmol/L (98-107); Direct Bilirubin 0.8 mg/dl (0.0-0.4); Glucose 117 mg/dl (70-99); Potassium 4.2 mmol/L (3.5-5.1); Sodium 139 mmol/L (135-145); Total Bilirubin 1.4 mg/dl (0.2-1.3); Total Protein 6.6 g/dl (6.3-8.2); eGFR > 60.00
[2025-01-04 19:44] LABS: CEA 0.91 ng/ml
== END ==
LOC: REG 16:47
PROVIDERS: ATTENDING PHYSICIAN Internal Medicine Hematology & Oncology; FAMILY PHYSICIAN Internal Medicine Geriatric Medicine
DX: C25.0 Malignant neoplasm of head of pancreas (principal); C79.51 Secondary malignant neoplasm of bone
CPT/HCPCS: 36415; 80053; 82248; 82378; 85025; 86301

== ENCOUNTER → 2025-01-18 08:33 | Outpatient (REF) | payer MEDICARE, OTHER, SELFPAY ==
[2025-01-18 08:40] VITALS: BP 113/52; BP_SYST 86; BMI 24.3
[2025-01-18] MEDS: ANCEF 10 IV (09:38)
[2025-01-18 11:14] VITALS: BP 114/53
== END ==
LOC: RADI 08:33
PROVIDERS: ATTENDING PHYSICIAN Internal Medicine Hematology & Oncology; FAMILY PHYSICIAN Internal Medicine Geriatric Medicine
DX: C25.0 Malignant neoplasm of head of pancreas (principal)
CPT/HCPCS: 36561; 76937; 77001; 99152; 99153; C1788

== ENCOUNTER 2025-01-21 16:54 | Inpatient (IN) | payer MEDICARE, OTHER, SELFPAY ==
[2025-01-21] VITALS (8 sets, daily range): BP systolic 102–121; BP diastolic 47–77; BMI 24.1
--- NOTE | 2025-01-21 12:39 | ED.GENMED ---
History of Present Illness
General
Chief Complaint: Abdominal Symptoms
Time Seen by Provider: 01/21/25 11:50
History of Present Illness
History of Present Illness:
84-year-old female presents the emergency department for evaluation of intractable vomiting for the past week. She is reportedly lost approximately 10 pounds. No fevers or chills. She is currently undergoing chemotherapy treatments for pancreatic
cancer. Sent in by her oncologist as the degree of vomiting/diarrhea is not expected with her treatment regimen. She did receive Neulasta earlier this week.
Review of Systems
Review of Systems
Allergies reviewed?: Yes
All Other Systems: ROS reviewed and negative except as documented in HPI and ROS
Phy Exam
Physical Exam
Physical Exam:
GEN: Well appearing, NAD, WDWN
HEENT: Oral mucosa moist, no scleral icterus
Cardiac: Regular rate
Lung: No respiratory distress, no tachypnea
Abdomen: Soft, grossly nontender
MSK: No gross deformity or injuries
Skin: Good color, no pallor or jaundice, no rashes
Neuro: AO x3, moves all extremities freely
Psych: Calm, cooperative
Course
Orders/Labs/Results
Orders:
Orders
01/21/25 12:20
Complete Blood Count/With Diff Urgent
Comprehensive Metabolic Panel Urgent
Lipase Urgent
Manual Differential Urgent
01/21/25 12:38
Electrocardiogram (*1) Urgent
Reason for Study: QTc Monitoring
EKG- Treatment ONCE
Lactated Ringers [Lr] 1,000 ml IV BOLUS
Ondansetron Injectable [Zofran] 4 mg IV NOW STA
01/21/25 12:59
CT Abd/Pel (IV only)-DH only Urgent
Comment:
Reason For Exam: vomiting/diarrhea
01/21/25 13:00
CT Head W/o Iv Contrast Urgent
Comment:
Reason For Exam: intractable vomiting
01/21/25 15:06
Urinalysis Reflex To Culture Urgent
Date Specimen was Collected: 01/21/25
Time Specimen was Collected: 14:49
Urine Microscopic Reflex Cult Urgent
Urine Culture Urgent
CHARLES Source: U
Specimen Description:
Date Specimen was Collected: 01/21/25
Time Specimen was Collected: 14:49
Abnormal Lab Results
01/21/25 01/21/25
12:20 15:06
WBC 24.8 H 10^3/uL
(4.8-10.8)
RBC 4.10 L 10^6/uL
(4.20-5.40)
Hgb 11.4 L g/dL
(12.0-16.0)
Hct 33.8 L %
(37.0-47.0)
Plt Count 90 L 10^3/uL
(130-400)
MPV 10.9 H fL
(7.4-10.4)
Abs Neuts (Manual) 20.0 H 10^3/uL
(1.4-6.5)
Band Neutrophils 14 H %
(0-3)
Lymphocytes (Manual) 7 L %
(20-51)
Sodium 133 L mmol/L
(135-145)
Glucose 113 H mg/dl
(70-99)
Calcium 7.2 L mg/dl
(8.4-10.2)
AST 37 H U/L
(14-36)
ALT 42 H U/L
(0-35)
Alkaline Phosphatase 141 H U/L
(38-126)
Total Protein 5.5 L g/dl
(6.3-8.2)
Albumin 3.1 L g/dl
(3.5-5.0)
Urine Ketones 3+ A
(Negative)
Ur Occult Blood Reflex 1+ A
(Negative)
Urine Bilirubin 2+ A
(Negative)
Leukocyte Esterase Rfl 2+ A
(Negative)
Urine WBC (Reflex) 11-15 A /HPF
(0-5)
Urine Bacteria (Reflex) Moderate A
(Negative)
Urine Albumin (Reflex) 2+ A
(Neg - Trace)
01/21/25 12:20
01/21/25 12:20
Vital Signs
Initial and Last Documented VS:
Initial Vital Signs
Temp Pulse Resp BP Pulse Ox
97.6 F 108 16 107/77 99
01/21/25 10:25 01/21/25 10:25 01/21/25 10:25 01/21/25 10:25 01/21/25 10:25
Last Documented Vital Signs
Temp Pulse Resp BP Pulse Ox
97.6 F 95 17 107/50 97
01/21/25 10:25 01/21/25 15:00 01/21/25 15:00 01/21/25 14:00 01/21/25 15:00
MDM/Problems Addressed
MDM/Problems Addressed:
Unclear etiology to persistent vomiting, will admit for further management
*Critical Care Note
Total Time (30-74mins, 75-104mins- exclusive of procedures): Not Applicable
ED Attending Note
-
Portions of this chart may have been created with voice recognition software.� Occasional wrong word or��sound alike� substitutions may have occurred due to the inherent limitations of voice recognition software.
Discharge Plan
Departure
Patient Disposition: Admit
Date of Disposition: 01/21/25
Time of Disposition: 16:20
Admit to: Med/Surg
Presentation/result/management discussed w/ accepting MD/DO: Hospitalist
Discharge Problem:
Intractable vomiting
Prescriptions:
No Action
flecainide 50 mg Tablet
50 mg PO Q12H
calcium carbonate [Tums] 200 mg calcium (500 mg) Tablet,Chewable
200 mg PO BIDPRN PRN (Reason: gerd)
omeprazole 20 mg Capsule,Delayed Release(Dr/Ec)
20 mg PO DAILYPRN PRN (Reason: gerd)
metoprolol succinate [Toprol XL] 25 mg Tablet Extended Release 24 Hr
25 mg PO DAILY
midodrine 10 mg Tablet
10 mg PO BID
dabigatran etexilate [Pradaxa] 150 mg Capsule
150 mg PO BID
ciprofloxacin HCl 500 mg tablet
500 mg PO BID 2 Days Qty: 4 0RF
acetaminophen 500 mg Tablet
500 mg PO Q6H PRN (Reason: mild pain)
ondansetron 4 mg Tablet,Disintegrating
4 mg PO Q6H PRN (Reason: nausea)
tramadol 25 mg Tablet
25 mg PO Q6H PRN (Reason: pain)
Referrals:
UNKNOWN - PT NOT,INTERVIEWE [Family Provider] -
Interventions
Interventions:
*Risk Screen - Suicide Last Done: 01/21/25 10:25
*General Assessment Last Done: 01/21/25 10:25
*Neglect/Abuse Screening Last Done: 01/21/25 13:03
*ED- Fall Risk Assessment Last Done: 01/21/25 15:30
*ED COVID-19 Vaccine History Last Done: 01/21/25 10:25
RU-Nbmrsf-Zjykemzfoq Assessment Last Done: 01/21/25 13:03
Discharge Date and Time
Print Language: FRISIAN
[2025-01-21 12:40] LABS: Hematocrit 33.8 % (37.0-47.0); Hemoglobin 11.4 g/dL (12.0-16.0); Mean Corp Hgb Conc. 33.7 g/dL (33.0-37.0); Mean Corpuscular Hgb 27.8 pg (27.0-31.0); Mean Corpuscular Volume 82.4 fL (81.0-99.0); Red Cell Dist. Width 14.1 % (11.5-14.5); White Blood Cell Count 24.8 10^3/uL (4.8-10.8)
[2025-01-21 12:46] LABS: ALT (SGPT) 42 U/L (0-35); AST (SGOT) 37 U/L (14-36); Albumin 3.1 g/dl (3.5-5.0); Alkaline Phosphatase 141 U/L (38-126); Blood Urea Nitrogen 14 mg/dl (7-17); Calcium 7.2 mg/dl (8.4-10.2); Carbon Dioxide 25 mmol/L (22-30); Chloride 101 mmol/L (98-107); Glucose 113 mg/dl (70-99); Lipase 168 U/L (23-300); Potassium 3.8 mmol/L (3.5-5.1); Sodium 133 mmol/L (135-145); Total Bilirubin 0.9 mg/dl (0.2-1.3); Total Protein 5.5 g/dl (6.3-8.2); eGFR > 60.00
[2025-01-21] MEDS: LR 1000 IV (13:11)
[2025-01-21] MEDS: ZOFRAN 4 MG IV (13:12)
[2025-01-21 13:18] LABS: Atypical Lymphocytes 1 %; Band Neutrophils 14 % (0-3); Eosinophils 1 % (0-6); Lymphocytes 7 % (20-51); Metamyelocytes 1 % (-); Monocytes 4 % (2-9)
[2025-01-21 13:19] LABS: Myelocytes 5 % (-); Segmented Neutrophils 67 % (42-75)
[2025-01-21 13:20] LABS: Mean Platelet Volume 10.9 fL (7.4-10.4); Platelet Count 90 10^3/uL (130-400); Total Cells Counted 100
[2025-01-21 13:21] LABS: Acanthocytes Slight; Anisocytosis Slight; Hypochromasia Slight; Normal RBC Morphology No; Platelets Checked Yes
[2025-01-21 15:30] LABS: Urine Albumin 2+ (Neg - Trace); Urine Bilirubin 2+ (Negative); Urine Character Clear (Clear); Urine Color Yellow; Urine Glucose Negative (Negative); Urine Ketone 3+ (Negative); Urine Leukocyte 2+ (Negative); Urine Nitrite Negative (Negative); Urine Occult Blood 1+ (Negative); Urine Specific Gravity 1.015 (<1.030); Urine Urobilinogen 1+ (Neg - 1+)
[2025-01-21 16:10] LABS: Urine Red Blood Cell 0-2 /HPF (0-2); Urine Squamous Cell >30 /LPF (Few)
[2025-01-21 16:11] LABS: Urine Bacteria Moderate (Negative); Urine Mucus Many
--- NOTE | 2025-01-21 16:18 | HPS.HSE ---
Family Physician
-
Family Physician: INTERVIEWE UNKNOWN - PT NOT
Chief Complaint
-
vomiting and diarrhea.
History of Present Illness
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 Patient stated poor appetite. Patient started chemo 10 days
ago. Patient lost 10 pounds in 10 days. Patient denied any abdominal pain. Patient denies any fever, chills, chest pain, short of breath. Patient denied headache, dizziness syncope. Patient denied dysuria hematuria.
Upon arrival patient is hypotensive. Admitted for further management
Medical History
Past Medical History
Past Medical History: Reports Other
Additional Past Medical History:
Paroxysmal A-fib, orthostatic hypotension, hypertension, pancreatic cancer mets to the liver, bone acid reflux
Past Surgical History: Reports Other
Additional Past Surgical History:
Pancreatic stent
Social History
Tobacco: Non-smoker
Alcohol: None
Drug: None
Personal:
Living: With Family
Family History
Family History: Not pertinent
Allergies / Home Medications
Allergies reflects when Allergies were last updated in [employer].
Home Medications with original date entered in [employer]
Allergy/Medication List:
Allergies
Allergy/AdvReac Type Severity Reaction Status Date / Time
Mnltaga-JIO-SgI Reductase Allergy Severe Shortness Verified 01/21/25 10:31
Inhibitor of Breath
oxycodone [From OxyContin] AdvReac hallucinati Verified 01/21/25 10:31
ons
Home Medications
calcium carbonate (Tums) 200 mg PO BIDPRN PRN gerd 12/10/24
flecainide 50 mg tablet 50 mg PO Q12H Arrhythmia 12/10/24
metoprolol succinate 25 mg tablet,extended release 24 hr (Toprol XL) 25 mg PO DAILY Heart Disease/Condition 12/10/24
midodrine 10 mg tablet 10 mg PO BID Blood Pressure 12/10/24
omeprazole 20 mg capsule,delayed release 20 mg PO DAILYPRN PRN gerd 12/10/24
acetaminophen 500 mg tablet 500 mg PO Q6H PRN mild pain 01/15/25
ondansetron 4 mg disintegrating tablet 4 mg PO Q6H PRN nausea 01/15/25
tramadol 25 mg tablet 25 mg PO Q6H PRN pain 01/15/25
Review of Systems
-
Constitutional: Reports No Symptoms
EENT: Reports No Symptoms
Respiratory: Reports No Symptoms
Cardiac: Reports No Symptoms
Abdomen/GI: Reports Nausea, Vomiting and Diarrhea
: Reports No Symptoms
Musculoskeletal: Reports No Symptoms
Skin: Reports No Symptoms
Neurological: Reports No Symptoms
Endocrine: Reports No Symptoms
Hematologic/Lymphatic: Reports No Symptoms
Psych: Reports No Symptoms
Physical Exam
Vital Signs
Vital Signs
Temp Pulse Resp BP Pulse Ox
97.6 F 95 17 107/50 97
01/21/25 10:25 01/21/25 15:00 01/21/25 15:00 01/21/25 14:00 01/21/25 15:00
Physical Exam
General: Well Developed, Well Nourished and No Apparent Distress
HEENT: NormoCephalic, Moist mucous membranes and Atraumatic
Respiratory: Clear
Cardiac: S1/S2 and Regular Rhythm; No Murmur or Rub
GI: Soft, Non Tender, Non Distended and Normal Bowel Sounds; No Organomegaly
Rectal: Deferred by Provider
Musculoskeletal: No Clubbing, No Cyanosis and No Edema
Skin: No Rash
Neuro: AO x 3 and Nonfocal/grossly intact
Psych: Calm
Laboratory Results
-
01/21/25 12:20
01/21/25 12:20
Laboratory Results
Total Bilirubin 0.9 mg/dl (0.2-1.3) 01/21/25 12:20
AST 37 U/L (14-36) H 01/21/25 12:20
ALT 42 U/L (0-35) H 01/21/25 12:20
Alkaline Phosphatase 141 U/L (38-126) H 01/21/25 12:20
Lipase 168 U/L (23-300) 01/21/25 12:20
Data Reviewed
-
CT Scan: Report Reviewed by me
Lab Data: Labs Reviewed by me
Impression/Plan
-
# Intractable vomiting unclear cause/likely from chemo versus acute diverticulitis versus small bowel enteritis
- CT abdomen pelvis with impression of sigmoid diverticulosis, cannot exclude some mild wall thickening/acute diverticulitis/cannot exclude mild small bowel enteritis
-clear liquid diet, advance as tolerated
-Zofran prn for n/v
-stool for culture, c diff, norovirus
# Leukocytosis likely from chemo
- WBCs 24.8
- Patient is afebrile
- Continue to monitor
# Anemia likely from chronic disease/thrombocytopenia likely from chemo
- Hemoglobin 11.4, platelets 90 patient is not actively bleeding
- Continue to monitor
# Hyponatremia likely from pancreatic cancer
- Sodium 133 continue to monitor
# Hypocalcemia likely from metastatic cancer
- Calcium 7.2
# Transaminitis likely from pancreatic cancer florian to liver
- AST 37, ALT 42, ALK 141
- Continue to monitor
#Pancreatic mass florian to liver and bones.
-on chemo, last chemo was last week, next is next
-follows [place]
#Orthostatic hypotension-continue home midodrine.
#Paroxysmal B-cic-yysyeaysl NSR on admission.
- Continue home flecainide, metoprolol succinate and Pradaxa
Code status: Full
VTE ppx: scds
--- NOTE | 2025-01-21 16:36 | PHANOTE ---
med rec note- tried to speak to patient but she has not been taking her medication, spouse does not know what she takes, patient seemed confusion and I'm not sure what she was trying to explain to me, called [facility] and she been see there
physician group. they are willing to fax a medication list over
[2025-01-21] MEDS: ProAmatine PO ×2 (21:12→21:20)
[2025-01-21] MEDS: NSS 1000 IV (21:13)
[2025-01-21] MEDS: TAMBOCOR PO ×2 (21:13→21:20)
[2025-01-21] MEDS: CATHFLO/ACTIVASE 2 MG INTRACATH (22:21)
--- NOTE | 2025-01-21 22:25 | VATNOTE ---
cathflo given now through difficult flush port and no blood return. VAT to monitor and recheck in an hour.
--- NOTE | 2025-01-21 23:46 | VATNOTE ---
CATHFLO ASPIRATED AND GOOD BR OBTAINED. PRT FLUSHED AND IVF VIA [facility] INITITATED ORDERED.
[2025-01-22] VITALS (12 sets, daily range): BP systolic 65–142; BP diastolic 43–84; BMI 23.6
[2025-01-22] MEDS: ZOFRAN 4 MG IV (01:19)
[2025-01-22] MEDS: PROTONIX IV 40 MG IV (01:50)
[2025-01-22] MEDS: NSS (PRESERVATIVE FREE) 10 ML IV (01:50)
--- NOTE | 2025-01-22 01:56 | PTCARENOTE ---
Pt AAOx3 forgetful and flat affect. Anxious at times. Pt had about 3 episodes of vomit. Unable to take oral med. Dry heaving at times. Zofran IV Given. P t NPO. VSS. Gen weakness. Will cont w/ tx plan.
[2025-01-22 05:49] LABS: Hematocrit 30.8 % (37.0-47.0); Hemoglobin 10.4 g/dL (12.0-16.0); Mean Corp Hgb Conc. 33.8 g/dL (33.0-37.0); Mean Corpuscular Hgb 27.8 pg (27.0-31.0); Mean Corpuscular Volume 82.4 fL (81.0-99.0); Mean Platelet Volume 10.5 fL (7.4-10.4); Platelet Count 87 10^3/uL (130-400); Red Blood Cell Count 3.74 10^6/uL (4.20-5.40); Red Cell Dist. Width 14.1 % (11.5-14.5)
[2025-01-22 06:09] LABS: ALT (SGPT) 34 U/L (0-35); AST (SGOT) 30 U/L (14-36); Albumin 2.7 g/dl (3.5-5.0); Alkaline Phosphatase 159 U/L (38-126); Blood Urea Nitrogen 12 mg/dl (7-17); Carbon Dioxide 22 mmol/L (22-30); Chloride 103 mmol/L (98-107); Direct Bilirubin 0.5 mg/dl (0.0-0.4); Estimated Creatinine Clearance 61 ml/min; Glucose 96 mg/dl (70-99); Potassium 3.7 mmol/L (3.5-5.1); Sodium 134 mmol/L (135-145); Total Bilirubin 0.8 mg/dl (0.2-1.3); Total Protein 4.9 g/dl (6.3-8.2); eGFR > 60.00
--- NOTE | 2025-01-22 08:40 | VNURNOTE ---
Chart reviewed. Patient is current with [facility] nursing. Will continue to follow hospital course and DC plans.
[2025-01-22] MEDS: TAMBOCOR PO ×3 (08:44→22:35)
[2025-01-22] MEDS: ProAmatine PO ×3 (08:44→22:35)
[2025-01-22] MEDS: TOPROL XL PO (08:45)
--- NOTE | 2025-01-22 11:49 | W.PN.HOSP.TC ---
Today's Communication/Plan
-
Continue IV fluids and antiemetics
GI and oncology consult
Follow-up stool cultures and fecal elastase
Assessment / Plan
Assessment / Plan
#Intractable nausea and vomiting
#Enteritis
-Differentials include chemotherapy related symptoms versus pancreatic insufficiency from tumor, versus other
-Per her primary oncologist there is concern this is not related to chemotherapy as symptoms started prior
-CT A/P with IV contrast showed diverticuli with mild wall thickening, and mild jejunal wall thickening
-Upon arrival was started on IV fluids and Zofran, as of this morning nausea is slightly improved
-Stool studies negative for C. difficile and stool leukocytes; stool culture and elastase level remain pending
-Continue with maintenance IV fluids, IV Zofran, QTc monitoring
-Follow-up stool culture and fecal elastase levels
-GI consult
#Leukocytosis with left shift
-White cell count continues to uptrend, from 24.8-34 here
-Suspect that this is still related to recent Neulasta
-No fevers, no abdomen pain in context of possible diverticulitis on CT
-Continue to monitor off of antibiotics for now
-Trend CBC and temperature curve
#Thrombocytopenia
-Likely related to chemotherapy
-Initial platelet count near 90 though had signs of platelet clumping; repeat platelet count 87
-Unclear etiology, is on Pradaxa but no obvious signs of bleeding and hemoglobin stable with hemodilution
-Has not received any heparin here, low suspicion for HIT; no signs of thrombotic events
-Trend CBC, transfuse for platelets <50 with bleed or <10 without
#Positive UA
-Likely asymptomatic bacteriuria, denies any UTI symptoms
-Urine culture pending
#Paroxysmal AF
-Nonvalvular, no known electrophysiologic intervention
-Home regimen includes flecainide, metoprolol succinate, dabigatran
-Has had some mild tachycardia in the low 100s though otherwise stable
#Primary hypertension
#Orthostatic hypotension
-Not on first-line hypertensive agents, on metoprolol XL for AF history, no history of systemic disease
-Complicated by orthostasis for which she takes midodrine 10 mg twice daily
-Monitor here for signs of orthostasis
#S/p biliary stent
-No signs on imaging of recurrent obstruction, LFTs stable
Diet: CLD, advance as tolerated
DVT prophylaxis: home Pradaxa
CODE STATUS: Full code
Anticipated Discharge: > 48 hours
Subjective/Interval History
-
Date of Service: January 22, 2025
Seen and examined at the bedside. No acute events reported overnight. AFVSS this morning
She states that her nausea is slightly better since starting Zofran. Denies any new complaints
White cell count continues to uptrend. Platelets stable as are remainder of labs
Objective Data
-
Labs:
Laboratory Results
01/22/25
05:06
WBC 34.0 H
Hgb 10.4 L
Hct 30.8 L
Plt Count 87 L
Sodium 134 L
Potassium 3.7
Chloride 103
Carbon Dioxide 22
BUN 12
Creatinine 0.5 L
Glucose 96
Calcium 7.0 L
Total Bilirubin 0.8
AST 30
ALT 34
Alkaline Phosphatase 159 H
Vital Signs:
Vital Signs
Temp Pulse Resp BP Pulse Ox
98.3 F 101 13 139/84 92
01/22/25 08:00 01/22/25 09:30 01/22/25 09:30 01/22/25 08:00 01/22/25 09:30
I&O
01/21/25 01/22/25 01/23/25
06:59 06:59 06:59
Intake Total 940 / 940
Balance 940 / 940
Review of Systems
-
History Source: Patient
All other systems: Reviewed and negative
Physical Exam
-
General: Well Developed, Well Nourished, No Apparent Distress and Appears Chronically Ill
HEENT: Normocephalic, Atraumatic, Moist Mucous Membranes and Anicteric
Respiratory: Clear to Auscultation and Non Labored Respirations; Negative Accessory Resp Muscle Use
Cardiac: Regular Rhythm and S1/S2; Negative Murmur, Rub or Gallop
GI: Soft, Nontender, Nondistended and Normal Bowel Sounds
Musculoskeletal: No Clubbing, No Cyanosis and No Edema
Skin: Warm, Dry and Normal Turgor; Negative Rash
Neuro: AO x 3 and Nonfocal/Grossly Intact
Psych: Calm
Data Reviewed
-
Labs: Labs Reviewed by me, Discussed with Physician (Gastroenterology), Discussed with Patient and Discussed with Family
--- NOTE | 2025-01-22 12:27 | CM ---
Addendum entered by Alecia Mantilla 01/22/25 12:40:
Chart reviewed: [facility] for nursing; Liaison will continue to follow hospital course and DC plans
Original Note:
Met with patient and her daughter, Jackie, at the bedside in ED
If /primary contact does not answer phone, call daughterJackie # [phone]
Pharmacy verified: [facility] @ [address] [place] [address]
Family Physician verified: Dr. Ananya Lynn; [address] [facility], [facility] [place] [address];
Patient lives with ; Independent Living Apartment @ [facility]
PLOF: independent w/ personal care and ambulation; reported she is weak; daughter thinks she needs a device during ambulation; reports she needs reminders to take medication and hydrate; goes to dining room for meals
SNF stay, 07/2024 @ [facility]
Home Care/VN; [facility] @ ; visits once a week
will transport home
Discharge Plan to be determined; Case Management will monitor for discharge needs
[2025-01-22] MEDS: NSS 1000 IV ×2 (12:48→16:28)
--- NOTE | 2025-01-22 13:07 | CON.GI ---
Addendum entered and electronically signed by Mao Encarnacion MD 01/22/25 15:07:
Patient seen and examined, agree with nurse practitioner note. Patient is an 85-year-old female with metastatic pancreatic cancer who presents with increasing nausea, vomiting and diarrhea. She has had nausea with vomiting which has been ongoing,
proceeding with chemotherapy. She does have early satiety, and has had increasing vomiting recently. She has been having difficulty swallowing pills including large pills, and yesterday an episode where she felt some fullness in her neck though
after a large amount of emesis felt much better. She has been having diarrhea which she describes as small to moderate amount of semiliquid stool 4-5 times a day without blood. She denies any significant abdominal pain, fever or chills. She does
tolerate liquids okay. This morning she is actually feeling better with overall less diarrhea and tolerating clears without difficulty. On exam she has no significant abdominal tenderness though there is some fullness in the epigastrium. Repeat
CT scan showed stents in place with pneumobilia, no obvious obstruction or other significant pathology, original tumor was stable if not slightly improved.
1. Nausea/vomiting : Likely multifactorial, with a large component likely related to her pancreatic head mass and delayed gastric emptying. There could be some component of chemotherapy now, though again the symptoms did precede her chemotherapy.
At this point we discussed supportive care for now, PPI, antiemetics, dietary modifications including small, frequent low bulky meals and supplementation with Ensure. If no improvement then could consider upper GI to help assess anatomy and gastric
emptying.
2. Diarrhea: New over the past couple of weeks and starting chemotherapy, likely chemotherapy induced, without significant abdominal pain or bloody diarrhea. At this point we will continue supportive care, await final stool studies.
Original Note:
Consultation
-
Date/Time Consultation Requested: 01/22/25 1118
Date/Time Consultation Performed: 01/22/25 1250
Requesting Provider: Dr. Samayoa
Performing Provider: Dr. Encarnacion/MATHEUS Campbell
Reason for Consultation: diarrhea
Medical History
Chief Complaint / HPI
Chief Complaint: abd pain
History of Present Illness:
85 y/o female with PMH of Stage IV pancreatic cancer with mets to bone and liver on 2nd dose of CTX that started 3 weeks ago with Neulasta administered after, PAF on Pradaxa, HTN, orthostatic hypotension, GERD, cognitive impairment, biliary
obstruction with stenting who initially presented to with 2 week hx of Nausea, vomiting and diarrhea. Asked to evaluate for the same. The patient states that the nausea was present prior to onset of chemo however became profoundly worse after
starting chemotherapy. She was initially started on Zofran and then transitioned over to Reglan. The patient is a poor historian. Daughter is at bedside. She cannot exactly tell me timetable of onset of diarrhea. Prior to her chemotherapy she
usually had constipation. Utilizing MiraLAX as needed. She does know that the onset of diarrhea came after initiating chemotherapy. She states that sometimes she cannot make it to the bathroom. She denies any fevers, chills, melena,
hematochezia, odynophagia, early satiety. She states that she has been eating a significant amount of albert grapefruit as well as mandrin oranges. She has only been taking in clear liquids for the past 3 days as well as tomato soup. She does
state that yesterday she had an episode where she could not pass any liquid and 'coughed up something that was stuck in her esophagus'. She is unsure what this was as she had not had any solid food in 3 days. She has never had any symptoms similar
to this in the past. She denies any sick contacts, recent travel or changes in medication except for Zofran, Reglan and chemotherapy. Patient is afebrile. WBC 34.0 (patient did receive Neulasta). Hemoglobin 10.4, hematocrit 30.8, platelets 87,
sodium 134, potassium 3.7, BUN 12, creatinine 0.5, total bilirubin 0.8, direct bilirubin 0.5, AST 30, ALT 34, alk phos 159, albumin 2.7. Stool negative for C. difficile, stool negative for norovirus. Stool culture pending. Stool leukocytes
pending. Stool ova and parasites/crypto pending. CT of the abdomen and pelvis with IV contrast shows sigmoid diverticulosis cannot exclude some mild wall thickening/acute diverticulitis. No bowel obstruction. Some apposed loops of unopacified
jejunum in the left abdomen with at least mild relative wall thickening. Cannot exclude mild small bowel enteritis. CBD stent and pancreatic duct stent both extending into duodenum. Intrahepatic biliary tract air correlating with CBD stent. No
significant suspected intrahepatic biliary tract dilatation. Known pancreatic head mass overall possibly slightly less prominent compared to prior CT. Slight progression of bony sclerotic metastases. Small pericardial effusion, decreased.
Past Medical History
Past Medical History: Arrhythmias (PAF), GERD, HTN and Other (orthostatic hypotension, cognitive impairment)
Past Surgical History: Appendectomy, Cholecystectomy, Gynecological (hysterectomy) and Other (hernia repair, ureteral stent, bunionectomy)
Social History
Tobacco: Non-Smoker
Alcohol: Other (rare)
Drug: None
Personal:
Living: With Family
Family History
Family History: Other (No family hx of GI malignancy or IBD)
Allergies / Home Medications
Allergy/AdvReac Type Severity Reaction Status Date / Time
oxycodone [From OxyContin] Allergy hallucinati Verified 01/21/25 20:00
ons
[id number] Reductase Allergy Shortness Verified 01/21/25 20:00
Inhibitor of Breath
�Medication �Instructions �Recorded
flecainide 50 mg tablet 50 mg PO Q12H Arrhythmia 12/10/24
metoprolol succinate 25 mg 25 mg PO DAILY Heart 12/10/24
tablet,extended release 24 hr Disease/Condition
(Toprol XL)
midodrine 10 mg tablet 10 mg PO BID Blood Pressure 12/10/24
omeprazole 20 mg capsule,delayed 20 mg PO DAILYPRN PRN gerd 12/10/24
release
dabigatran etexilate 150 mg 150 mg PO BID 01/21/25
capsule (Pradaxa)
Review of Systems
-
All other systems: A 12 pt ROS was Negative except as stated above in HPI
Vital Signs
Temp Pulse Resp BP Pulse Ox
98.3 F 101 13 139/84 92
01/22/25 08:00 01/22/25 09:30 01/22/25 09:30 01/22/25 08:00 01/22/25 09:30
Physical Exam
Exam
General: No Apparent Distress
HEENT: Anicteric
Respiratory: Clear (anterior)
Cardiac: Regular Rhythm
GI: Soft, Non Tender, Non Distended and Normal Bowel Sounds
Skin: Warm and Dry
Neuro: AO x 3 (poor historian)
Psych: Calm
Results
WBC 34.0 10^3/uL (4.8-10.8) H 01/22/25 05:06
Hgb 10.4 g/dL (12.0-16.0) L 01/22/25 05:06
Hct 30.8 % (37.0-47.0) L 01/22/25 05:06
MCV 82.4 fL (81.0-99.0) 01/22/25 05:06
Plt Count 87 10^3/uL (130-400) L 01/22/25 05:06
Sodium 134 mmol/L (135-145) L 01/22/25 05:06
Potassium 3.7 mmol/L (3.5-5.1) 01/22/25 05:06
Chloride 103 mmol/L (98-107) 01/22/25 05:06
Carbon Dioxide 22 mmol/L (22-30) 01/22/25 05:06
BUN 12 mg/dl (7-17) 01/22/25 05:06
Creatinine 0.5 mg/dL (0.6-1.0) L 01/22/25 05:06
Calcium 7.0 mg/dl (8.4-10.2) L 01/22/25 05:06
Total Bilirubin 0.8 mg/dl (0.2-1.3) 01/22/25 05:06
AST 30 U/L (14-36) 01/22/25 05:06
ALT 34 U/L (0-35) 01/22/25 05:06
Alkaline Phosphatase 159 U/L (38-126) H 01/22/25 05:06
Lipase 168 U/L (23-300) 01/21/25 12:20
Diagnostic Image Results:
CT of the abdomen pelvis with IV contrast:
IMPRESSION:
Sigmoid diverticulosis markedly limited without oral contrast, cannot exclude some mild wall thickening/acute diverticulitis.
No intestinal obstruction or free air. Some apposed loops of unopacified jejunum in the left abdomen with at least mild relative wall thickening, CANNOT EXCLUDE MILD SMALL BOWEL ENTERITIS.
Common bile duct stent and pancreatic duct stent seen in both extending into the duodenum. Intrahepatic biliary tract air correlating with the common bile duct stent. No significant suspected intrahepatic biliary tract dilatation.
Known pancreatic head mass overall possibly slightly less prominent in comparison to prior CT.
Slight progression of bony sclerotic metastasis.
Small pericardial effusion, decreased.
Prior GI Procedures:
ERCP 12/17/24: - Congested duodenal mucosa.
- One stent from the pancreatic duct was seen in the
major papilla.
- The major papilla appeared edematous.
- The major papilla appeared congested.
- Repeat attempt with failed cannulation. EUS guided
choledochoduodenostomy LAMS ([employer]) placement
performed successfully.
- The left main hepatic duct, right main hepatic duct
and common bile duct were moderately dilated.
- Choledochoduodenostomy fistula tract was
successfully dilated.
- One plastic stent was placed into the left hepatic
duct via LAMS.
EUS 12/17/24 (Dr. Bernal) There was dilation in the common bile duct which
measured up to 20 mm.
- EUS-guided choledochoduodenostomy 8 x 8 mm LAMS
([employer]) was successfully placed under endosonographic
and fluroscopic guidance.
- No specimens collected.
EUS 12/15/24: - A mass was identified in the pancreatic head. This
was staged T2 Nx Mx by endosonographic criteria. Fine
needle aspiration performed.
- There was dilation in the common bile duct which
measured up to 17 mm.
- There was no evidence of significant pathology in
the left lobe of the liver.
- Two enlarged lymph nodes were visualized in the
peripancreatic region.
ERCP 12/15/24: Severe extrinsic deformity found in the first portion the duodenum and the second portion of the duodenum. A few severely congested mucosa without active bleeding or stigmata of recent bleeding in the first and second portion the
duodenum. Difficult to locate the major papilla, the ventral pancreatic duct was inadvertently cannulated. The bile duct was unable to be cannulated. Plastic stent with a full external pigtail placed 5 cm into the ventral pancreatic duct.
MRI/MRCP 12/11/24:
1. PANCREATIC HEAD CANCER completely obstructing the common bile duct and encasing the portal vein-superior mesenteric vein confluence which is severely narrowed. Complete thrombosis of the splenic vein. Other regions of signal abnormality in the
pancreatic body and tail suggesting pancreatic malignancy. Inferior extension of infiltrative pancreatic malignancy into the small bowel mesentery.
2. SEVERE COMMON BILE DUCT OBSTRUCTION with severe distention of the proximal extrahepatic bile ducts and intrahepatic bile ducts.
3. 5 mm enhancing lesion in the right lobe of the liver (possible hepatic metastasis).
4. 7.4 mm enhancing lesion in the right subhepatic space (possible peritoneal metastasis).
5. Mild kita hepatis and portacaval lymphadenopathy (possible nilesh metastatic disease).
6. Multiple enhancing intramedullary osseous lesions (PROBABLE MULTIFOCAL OSSEOUS METASTATIC DISEASE).
7. Small volume of ascites.
8. Moderate-sized complex pericardial effusion (possibly hemorrhagic).
9. Minimal bilateral pleural effusions.
Ct Abd/Pelvis with IV contrast 12/10/24: ill-defined, mildly hyperdense focus within the pancreatic head measuring approximately 2.8 cm. There is associated severe intrahepatic and extrahepatic biliary ductal dilation. Consolation of findings are
concerning for pancreatic head lesion. Recommend MRI abdomen for further evaluation.Sclerotic foci within the lumbar spine and pelvis suspicious for sclerotic osseous metastasis. Left inguinal hernia containing nonobstructed colon. Fat-containing
supraumbilical hernia. Small/moderate pericardial effusion.
Assessment / Plan
-
85 y/o female with PMH of Stage IV pancreatic cancer with mets to bone and liver on 2nd dose of CTX that started 3 weeks ago with Neulasta administered after, PAF on Pradaxa, HTN, orthostatic hypotension, GERD, cognitive impairment, biliary
obstruction with stenting who initially presented to with 2 week hx of Nausea, vomiting and diarrhea. Asked to evaluate for the same. Patient with improvement of nausea/vomiting. Still with loose stools. Stool for C. difficile and norovirus
negative. Pending all other stool studies. Pancreatic elastase also pending. Patient without any abdominal pain.
Impression:
N/V
Diarrhea
Metastatic pancreatic cancer s/p CTX
Plan:
-Await stool studies
-Trend labs
-Clears as tolerated, if does well then would advance to low residue diet
-Antiemetics as needed
- Check TSH/T4
-Further recommendations to be forthcoming
-
-
Thank you for consultation and allowing me to participate in the patient's care. Please call the loan documentation specialist GI physician during the after hours with any questions or concerns.
--- NOTE | 2025-01-22 13:20 | CON.ONC ---
Impression
Impression
nausea/ vomiting
stage IV pancreatic cancer - on chemotherapy - gem/abraxane - w/ GCSF 01/15
leukocytosis
thrombocytopenia
anemia
Plan
Plan
1. Nausea/ vomiting
-the etiology of this patient's nausea and vomiting is unclear - chemo vs. infection vs. inflammation vs. other
-CT imaging w/ changes c/w possible small bowel enteritis - no obstruction
-GI consulted
-cont IVF/ antiemetics
-supportive care
2. Stage IV pancreatic cancer - s/p 2 tx w/ gem/abraxane - GCSF - 01/15
-leukocytosis - component potentially related to GCSF - possible reactive component w/ infection?/ inflammatory process
-anemia/ thrombocytopenia - post chemotherapy
-follow CBC
Will continue to follow with you.
Patient History
History of Present Illness
85y/o female seen in oncology consultation today regarding h/o stage IV pancreatic cancer w/ bone metastasis.
The patient initiated chemotherapy in late December w/ weekly gemcitabine/ abraxane - now s/p 2 tx w/ GCSF on 01/15.
She presented to the [place] ER on 01/21 w/ several day h/o nausea and vomiting. CT imaging in the ER revealed sigmoid diverticulosis; though, could not exclude diverticulitis. No intestinal obstruction or free air. Some apposed loops of
unopacified jejunum in the left abdomen with at least mild relative wall thickening, cannot excluded small bowel enteritis. Common bile duct stent and pancreatic duct stent seen in both extending into the duodenum. Intrahepatic biliary tract air
correlating with the common bile duct stent. No significant suspected intrahepatic biliary tract dilatation. Known pancreatic head mass overall possibly slightly less prominent in comparison to prior CT.
W/ IVF and antiemetics, the patient is feeling better this am. She continues to have some nausea. No fevers or chills. No abdominal pain. No diarrhea or blood in her stool.
Past-Medical/Surgical History
PMH:
stage IV pancreatic cancer - s/p 2tx - gem/ abraxane - last on 01/14 w/ GCSF 01/15
Paroxysmal A-fib
orthostatic hypotension
hypertension
acid reflux
PSH:
ERCP w/ pancreatic duct stent
Social History
Tobacco: Non-smoker
Alcohol: None
Family History
Family History: Not pertinent
Allergies: oxycodone, statins
Patient Medication
�Medication �Instructions �Recorded �Confirmed �Last Taken �Type
flecainide 50 mg tablet 50 mg PO Q12H Arrhythmia 12/10/24 01/21/25 12/14/24 20:00 History
metoprolol succinate 25 mg 25 mg PO DAILY Heart 12/10/24 01/21/25 12/14/24 08:00 History
tablet,extended release 24 hr Disease/Condition
(Toprol XL)
midodrine 10 mg tablet 10 mg PO BID Blood Pressure 12/10/24 01/21/25 12/14/24 20:00 History
omeprazole 20 mg capsule,delayed 20 mg PO DAILYPRN PRN gerd 12/10/24 01/21/25 12/09/24 History
release
dabigatran etexilate 150 mg 150 mg PO BID 01/21/25 01/21/25 Unknown History
capsule (Pradaxa)
Active Medications
Generic Name Dose Route Start Last Admin
Trade Name Freq PRN Reason Stop Dose Admin
Calcium/Vitamin D 500 mg 01/23/25 08:00
Calcium Carbonate 500 Mg/Vitamin D 5 Mcg (200 Units) Tablet PO 02/20/25 07:59
DAILY TONIA
Dabigatran 150 mg 01/21/25 20:00 01/22/25 08:44
Dabigatran Etexilate (Pradaxa) 150 Mg Capsule PO 02/18/25 19:59 Not Given
BID TONIA
Flecainide Acetate 50 mg 01/21/25 20:00 01/22/25 08:44
Flecainide 50 Mg Tablet PO 02/18/25 19:59 Not Given
Q12H TONIA
Sodium Chloride 1,000 mls @ 100 mls/hr 01/21/25 19:57 01/22/25 12:48
Nss IV 1,000 mls
.Q10H TONIA Administration
Metoprolol Succinate 25 mg 01/22/25 08:00 01/22/25 08:45
Metoprolol 25 Mg Extended Release Tablet PO 02/19/25 07:59 Not Given
DAILY TONIA
Midodrine 10 mg 01/21/25 20:00 01/22/25 08:44
Midodrine 5 Mg Tablet PO 02/18/25 19:59 Not Given
BID TONIA
Ondansetron HCl 4 mg 01/21/25 19:57 01/22/25 01:19
Ondansetron 4 Mg/2 Ml Vial IV 02/18/25 19:56 4 mg
Q6HPRN PRN Administration
nausea and vomiting
Pantoprazole Sodium 40 mg 01/21/25 20:06
Pantoprazole 40 Mg Delayed Release Tablet PO 02/18/25 20:05
DAILYPRN PRN
gerd
Sodium Chloride 0 flush 01/21/25 21:00
Sodium Chloride 0.9% (Flush) Syringe IV 02/18/25 20:59
PER PROTOCOL TONIA
Review of Systems
-
A ROS was performed w/ pertinent findings as per HPI.
Physical Exam
-
General: Well Developed and No Apparent Distress
HEENT: Negative Jaundice
Cardiology: Other (tachycardic)
Pulmonary: Clear
GI: Soft
Extremities: No C/C/E
Neurology: Non Focal
Labs
Lab Results
WBC 34.0 10^3/uL (4.8-10.8) H 01/22/25 05:06
RBC 3.74 10^6/uL (4.20-5.40) L 01/22/25 05:06
Hgb 10.4 g/dL (12.0-16.0) L 01/22/25 05:06
Hct 30.8 % (37.0-47.0) L 01/22/25 05:06
MCV 82.4 fL (81.0-99.0) 01/22/25 05:06
MCH 27.8 pg (27.0-31.0) 01/22/25 05:06
MCHC 33.8 g/dL (33.0-37.0) 01/22/25 05:06
RDW 14.1 % (11.5-14.5) 01/22/25 05:06
Plt Count 87 10^3/uL (130-400) L 01/22/25 05:06
MPV 10.5 fL (7.4-10.4) H 01/22/25 05:06
Creatinine 0.5 mg/dL (0.6-1.0) L 01/22/25 05:06
Vital Signs
Vital Signs
Temp Pulse Resp BP Pulse Ox
98.3 F 101 13 139/84 92
01/22/25 08:00 01/22/25 09:30 01/22/25 09:30 01/22/25 08:00 01/22/25 09:30
[2025-01-23] MEDS: NSS 1000 IV (03:10)
[2025-01-23 04:23] VITALS: BP 128/57
--- NOTE | 2025-01-23 05:33 | PTCARENOTE ---
pt refused weight
--- NOTE | 2025-01-23 07:48 | PTCARENOTE ---
Patient refused 6 am EKG. Patient educated on risks and benefits. Will continue to monitor.
[2025-01-23 07:57] VITALS: BP 136/71
[2025-01-23] MEDS: TAMBOCOR PO (08:35)
[2025-01-23] MEDS: TOPROL XL PO (08:35)
[2025-01-23] MEDS: ProAmatine PO ×2 (08:35→20:08)
[2025-01-23] MEDS: ZOFRAN 4 MG IV (08:39)
[2025-01-23 08:49] LABS: Hemoglobin 10.8 g/dL (12.0-16.0); Mean Corp Hgb Conc. 32.7 g/dL (33.0-37.0); Mean Corpuscular Hgb 27.5 pg (27.0-31.0); Mean Platelet Volume 10.6 fL (7.4-10.4); Platelet Count 111 10^3/uL (130-400); Red Blood Cell Count 3.93 10^6/uL (4.20-5.40); Red Cell Dist. Width 14.6 % (11.5-14.5); White Blood Cell Count 28.6 10^3/uL (4.8-10.8)
[2025-01-23 09:12] LABS: ALT (SGPT) 26 U/L (0-35); AST (SGOT) 25 U/L (14-36); Albumin 2.7 g/dl (3.5-5.0); Alkaline Phosphatase 156 U/L (38-126); Blood Urea Nitrogen 9 mg/dl (7-17); Calcium 6.6 mg/dl (8.4-10.2); Carbon Dioxide 22 mmol/L (22-30); Chloride 107 mmol/L (98-107); Estimated Creatinine Clearance 61 ml/min; Glucose 118 mg/dl (70-99); Magnesium 1.8 mg/dl (1.6-2.3); Potassium 2.9 mmol/L (3.5-5.1); Sodium 136 mmol/L (135-145); Total Bilirubin 0.8 mg/dl (0.2-1.3); Total Protein 4.9 g/dl (6.3-8.2); eGFR > 60.00
[2025-01-23 09:26] LABS: Absolute Neutrophils -Man Diff 21.7 10^3/uL (1.4-6.5); Band Neutrophils 6 % (0-3); Lymphocytes 15 % (20-51); Monocytes 6 % (2-9); Segmented Neutrophils 70 % (42-75)
[2025-01-23 09:27] LABS: Anisocytosis Slight; Hypochromasia 1+; Metamyelocytes 1 % (-); Myelocytes 2 % (-); Normal RBC Morphology No; Platelets Checked Yes; Polychromasia Slight; Total Cells Counted 100
--- NOTE | 2025-01-23 10:04 | W.PN.ONC ---
Today's Communication / Plan
-
Continued nausea
GI monitoring
CBC shows stable hemoglobin improving platelets
Leukocytosis white blood cell growth factor may be contributing
Ondansetron as needed
Impression
Impression
nausea/ vomiting
stage IV pancreatic cancer - on chemotherapy - gem/abraxane - w/ GCSF /
leukocytosis
thrombocytopenia
anemia
Subjective/Objective
Subjective/Objective
Patient with nausea today, given ondansetron prior to my arrival
Vital Signs:
Vital Signs
Temp Pulse Resp BP Pulse Ox
97.3 F 100 16 136/71 97
01/23/25 07:57 01/23/25 07:57 01/23/25 07:57 01/23/25 07:57 01/23/25 07:57
Unchanged
Lab Results:
Laboratory Data
WBC 28.6 10^3/uL (4.8-10.8) H 01/23/25 08:06
Hgb 10.8 g/dL (12.0-16.0) L 01/23/25 08:06
Plt Count 111 10^3/uL (130-400) L D 01/23/25 08:06
eGFR > 60.00 01/23/25 08:06
--- NOTE | 2025-01-23 10:28 | W.PN.GI.CBS2 ---
Today's Communication / Plan
-
Please see assessment and plan for details.
Assessment / Plan
-
1. Nausea/vomiting: Likely multifactorial, most likely some component of delayed gastric emptying given head of pancreas mass as symptoms preceded chemotherapy, though likely now some component of chemotherapy as well. Will continue Zofran, clear
liquid diet, replete electrolytes for now. If no improvement then we will check barium upper GI on Saturday.
2. Diarrhea: Likely chemotherapy-induced, C. difficile negative, other stool studies pending. Given negative C. difficile will start Imodium and continue supportive care for now.
Subjective
Subjective
Date of Service: January 23, 2025
Patient doing okay, though still having diarrhea this morning, nonbloody. Still with nausea though no vomiting last night or this morning, tolerating clears okay. No fevers or chills overnight.
Objective
Data Reviewed
Laboratory Data:
Laboratory Results
01/23/25 08:06
01/23/25 08:06
Laboratory Results
Magnesium 1.8 mg/dl (1.6-2.3) 01/23/25 08:06
Total Bilirubin 0.8 mg/dl (0.2-1.3) 01/23/25 08:06
AST 25 U/L (14-36) 01/23/25 08:06
ALT 26 U/L (0-35) 01/23/25 08:06
Alkaline Phosphatase 156 U/L (38-126) H 01/23/25 08:06
Lipase 168 U/L (23-300) 01/21/25 12:20
Vital Signs and I&O:
Vital Signs
Temp Pulse Resp BP Pulse Ox
97.3 F 100 16 136/71 97
01/23/25 07:57 01/23/25 07:57 01/23/25 07:57 01/23/25 07:57 01/23/25 07:57
I&O
01/22/25 01/23/25 01/24/25
06:59 06:59 06:59
Intake Total 940 / 940 240 / 240
Balance 940 / 940 240 / 240
Physical Exam
Physical Exam
General: NAD
Abdomen: normal bowel sounds, soft, no tenderness, no masses or bruits, no ascites
[2025-01-23] MEDS: CALCIUM GLUCONATE 120 MG IV (10:31)
[2025-01-23] MEDS: IMODIUM 2 MG PO (10:52)
[2025-01-23] MEDS: KCL 270 MEQ IV ×3 (10:52→21:44)
[2025-01-23 11:13] VITALS: BP 128/66
--- NOTE | 2025-01-23 12:57 | W.PN.HOSP.TC ---
Today's Communication/Plan
-
Continue antiemetics
Monitor QTc
Start Imodium
Replete electrolytes
Assessment / Plan
Assessment / Plan
#Intractable nausea and vomiting
#Enteritis
#Hypokalemia
#Hypocalcemia
-Differentials include chemotherapy related symptoms versus pancreatic insufficiency from tumor, versus other
-Per her primary oncologist there is concern this is not related to chemotherapy as symptoms started prior
-CT A/P with IV contrast showed diverticuli with mild wall thickening, and mild jejunal wall thickening
-Upon arrival was started on IV fluids and Zofran, as of this morning nausea is slightly improved
-Stool studies negative for C. difficile and stool leukocytes; stool culture and elastase level remain pending
-Continue with maintenance IV fluids, IV Zofran/Compazine PRN, QTc monitoring
-Continue to monitor BMP/Mg/Phos and replete electrolytes as needed
-Follow-up stool culture and fecal elastase levels
-GI consult, considering upper GI series Saturday
#Leukocytosis with left shift
-White cell count now downtrending, from 24.8-34-28.6 here
-Suspect that this is still related to recent Neulasta
-No fevers, no abdomen pain in context of possible diverticulitis on CT
-Continue to monitor off of antibiotics for now
-Trend CBC and temperature curve
#Thrombocytopenia
-Likely related to chemotherapy
-Initial platelet count near 90 though had signs of platelet clumping; repeat platelet count 87; now uptrending > 100
-Unclear etiology, is on Pradaxa but no obvious signs of bleeding and hemoglobin stable with hemodilution
-Has not received any heparin here, low suspicion for HIT; no signs of thrombotic events
-Trend CBC, transfuse for platelets <50 with bleed or <10 without
#Positive UA
-Likely asymptomatic bacteriuria, denies any UTI symptoms
-Urine culture pending
#Paroxysmal AF
-Nonvalvular, no known electrophysiologic intervention
-Home regimen includes flecainide, metoprolol succinate, dabigatran
-Has had some mild tachycardia in the low 100s though otherwise stable
#Primary hypertension
#Orthostatic hypotension
-Not on first-line hypertensive agents, on metoprolol XL for AF history, no history of systemic disease
-Complicated by orthostasis for which she takes midodrine 10 mg twice daily
-Monitor here for signs of orthostasis
#S/p biliary stent
-No signs on imaging of recurrent obstruction, LFTs stable
Diet: CLD, advance as tolerated
DVT prophylaxis: home Pradaxa
CODE STATUS: Full code
Anticipated Discharge: 24 - 48 hours
Subjective/Interval History
-
Date of Service: January 23, 2025
Seen and examined at the bedside. No acute events reported overnight. AFVSS this morning
Continues to have loose stools, no blood. CBC improving with up trending platelets and downtrending WBC. No vomiting reported this morning
She denies any new complaints today. Potassium and calcium level on a.m. labs, repletion ordered
Objective Data
-
Labs:
Laboratory Results
01/23/25
08:06
WBC 28.6 H
Hgb 10.8 L
Hct 33.0 L
Plt Count 111 L D
Sodium 136
Potassium 2.9 L
Chloride 107
Carbon Dioxide 22
BUN 9
Creatinine 0.5 L
Glucose 118 H
Calcium 6.6 L*
Total Bilirubin 0.8
AST 25
ALT 26
Alkaline Phosphatase 156 H
Vital Signs:
Vital Signs
Temp Pulse Resp BP Pulse Ox
97.3 F 93 16 128/66 96
01/23/25 11:13 01/23/25 11:13 01/23/25 11:13 01/23/25 11:13 01/23/25 11:13
I&O
01/22/25 01/23/25 01/24/25
06:59 06:59 06:59
Intake Total 940 / 940 240 / 240
Balance 940 / 940 240 / 240
Review of Systems
-
History Source: Patient
All other systems: Reviewed and negative
Physical Exam
-
General: Well Developed, Well Nourished and Appears Chronically Ill; Negative Comfortable
HEENT: Normocephalic, Atraumatic, Moist Mucous Membranes and Anicteric
Respiratory: Clear to Auscultation and Non Labored Respirations; Negative Accessory Resp Muscle Use
Cardiac: Regular Rhythm and S1/S2; Negative Murmur, Rub or Gallop
GI: Soft, Nontender, Nondistended and Normal Bowel Sounds
Musculoskeletal: No Clubbing, No Cyanosis and No Edema
Skin: Warm, Dry and Normal Turgor; Negative Rash
Neuro: AO x 3 and Nonfocal/Grossly Intact; Negative Tremors
Psych: Calm
Data Reviewed
-
Labs: Labs Reviewed by me, Discussed with Nurse and Discussed with Patient
[2025-01-23 15:50] VITALS: BP 115/58
--- NOTE | 2025-01-23 18:30 | PTCARENOTE ---
Patient with n/v/d during shift, PRN medication administered with + effects. Pt with poor appetite throughout shift, only drinking tea and water. Patient refused all PO meds except Imodium. Md made aware. Family in to visit during shift. Spoke with
family about POC, checked frequently throughout shift. Call charlton within reach.
[2025-01-23 19:08] VITALS: BP 107/53
[2025-01-23] MEDS: TAMBOCOR 50 MG PO (20:09)
[2025-01-23 23:30] VITALS: BP 115/54
[2025-01-24 03:41] VITALS: BP 102/51
[2025-01-24] MEDS: ZOFRAN 4 MG IV ×2 (04:11→11:04)
[2025-01-24 07:26] VITALS: BP 114/60
[2025-01-24] MEDS: COMPAZINE 10 MG IV (08:46)
[2025-01-24] MEDS: ProAmatine PO ×2 (08:54→20:54)
[2025-01-24] MEDS: TAMBOCOR PO ×2 (08:54→20:54)
[2025-01-24] MEDS: TOPROL XL PO (08:55)
[2025-01-24 09:06] LABS: Hematocrit 31.4 % (37.0-47.0); Hemoglobin 10.2 g/dL (12.0-16.0); Mean Corp Hgb Conc. 32.5 g/dL (33.0-37.0); Mean Corpuscular Hgb 27.9 pg (27.0-31.0); Mean Corpuscular Volume 85.8 fL (81.0-99.0); Mean Platelet Volume 10.5 fL (7.4-10.4); Platelet Count 129 10^3/uL (130-400); Red Blood Cell Count 3.66 10^6/uL (4.20-5.40); Red Cell Dist. Width 15.4 % (11.5-14.5); White Blood Cell Count 43.8 10^3/uL (4.8-10.8)
[2025-01-24] MEDS: D5LR 1000 IV ×2 (09:11→20:55)
--- NOTE | 2025-01-24 09:20 | W.PN.GI.CBS2 ---
Today's Communication / Plan
-
Please see assessment and plan for details.
Assessment / Plan
-
1. Nausea/vomiting: Likely multifactorial, most likely some component of delayed gastric emptying given head of pancreas mass as symptoms preceded chemotherapy, though likely now some component of chemotherapy as well. No vomiting while in the
hospital, will advance to full liquid diet and continue supportive care. If no improvement then we will check barium upper GI on Saturday.
2. Diarrhea: Likely chemotherapy-induced, C. difficile negative, other stool studies pending. Stools overall improving, continue Imodium and supportive care.
Subjective
Subjective
Date of Service: January 24, 2025
Patient feeling a bit better, tolerated clears without vomiting though still with some nausea, diarrhea is less, no pain, fever or chills.
Objective
Data Reviewed
Laboratory Data:
Laboratory Results
01/24/25 08:36
Laboratory Results
Magnesium 1.8 mg/dl (1.6-2.3) 01/23/25 08:06
Total Bilirubin 0.8 mg/dl (0.2-1.3) 01/23/25 08:06
AST 25 U/L (14-36) 01/23/25 08:06
ALT 26 U/L (0-35) 01/23/25 08:06
Alkaline Phosphatase 156 U/L (38-126) H 01/23/25 08:06
Lipase 168 U/L (23-300) 01/21/25 12:20
Vital Signs and I&O:
Vital Signs
Temp Pulse Resp BP Pulse Ox
98.1 F 110 18 114/60 97
01/24/25 07:26 01/24/25 07:26 01/24/25 07:26 01/24/25 07:26 01/24/25 07:26
I&O
01/23/25 01/24/25 01/25/25
06:59 06:59 06:59
Intake Total 240 / 240 840 / 840
Balance 240 / 240 840 / 840
Physical Exam
Physical Exam
General: NAD
Abdomen: normal bowel sounds, soft, no tenderness, no masses or bruits, no ascites
[2025-01-24 09:30] LABS: ALT (SGPT) 24 U/L (0-35); AST (SGOT) 25 U/L (14-36); Albumin 2.6 g/dl (3.5-5.0); Alkaline Phosphatase 183 U/L (38-126); Blood Urea Nitrogen 7 mg/dl (7-17); Calcium 7.1 mg/dl (8.4-10.2); Carbon Dioxide 21 mmol/L (22-30); Chloride 107 mmol/L (98-107); Estimated Creatinine Clearance 61 ml/min; Glucose 85 mg/dl (70-99); Magnesium 1.8 mg/dl (1.6-2.3); Phosphorus 1.1 mg/dl (2.5-4.5); Potassium 4.4 mmol/L (3.5-5.1); Sodium 135 mmol/L (135-145); Total Bilirubin 0.6 mg/dl (0.2-1.3); Total Protein 4.9 g/dl (6.3-8.2); eGFR > 60.00
[2025-01-24 10:09] LABS: Pancreatic Elastase, Fecal 25 ug/g (>=100)
[2025-01-24 11:16] LABS: Nucleated Red Blood Cells % 0.1 %
[2025-01-24 11:17] LABS: Absolute Neutrophils -Man Diff 34.1 10^3/uL (1.4-6.5); Band Neutrophils 25 % (0-3); Lymphocytes 6 % (20-51); Metamyelocytes 9 % (-); Monocytes 3 % (2-9); Myelocytes 4 % (-); Segmented Neutrophils 53 % (42-75)
[2025-01-24 11:18] LABS: Normal RBC Morphology No; Platelets Checked Yes
[2025-01-24 11:19] LABS: Anisocytosis Slight; Hypochromasia Slight; Total Cells Counted 100
--- NOTE | 2025-01-24 12:04 | W.PN.HOSP.TC ---
Today's Communication/Plan
-
Start Creon
ADAT
Antiemetics
Possible upper GI series tomorrow
Replete calcium and phosphorus
Assessment / Plan
Assessment / Plan
#Intractable nausea and vomiting
#Exocrine pancreatic insufficiency
#Enteritis
#Electrolyte deficiencies
-Differentials include chemotherapy related symptoms v. pancreatic insufficiency from tumor v. Multifactorial
-Per her primary oncologist there is concern this is not related to chemotherapy as symptoms started prior
-CT A/P with IV contrast showed diverticuli with mild wall thickening, and mild jejunal wall thickening
-Upon arrival was started on IV fluids and Zofran, as of this morning nausea is slightly improved
-Infectious workup negative, stool elastase was low; Likely EPI from tumor infiltration
-Continue with maintenance IV fluids, IV Zofran/Compazine PRN, QTc monitoring
-Continue to monitor BMP/Mg/Phos and replete electrolytes as needed
-GI consult, considering upper GI series Saturday if not improving
-ADAT, will discuss starting Creon with GI for EPI
#Leukocytosis with left shift
-White cell count now downtrending, from 24.8-34-28.6 here
-Suspect that this is still related to recent Neulasta
-No fevers, no abdomen pain in context of possible diverticulitis on CT
-Continue to monitor off of antibiotics for now
-Trend CBC and temperature curve
#Thrombocytopenia
-Likely related to chemotherapy
-Initial platelet count near 90 though had signs of platelet clumping; repeat platelet count 87; now uptrending > 100
-Unclear etiology, is on Pradaxa but no obvious signs of bleeding and hemoglobin stable with hemodilution
-Has not received any heparin here, low suspicion for HIT; no signs of thrombotic events
-Trend CBC, transfuse for platelets <50 with bleed or <10 without
#Positive UA
-Likely asymptomatic bacteriuria, denies any UTI symptoms
-Urine culture pending
#Paroxysmal AF
-Nonvalvular, no known electrophysiologic intervention
-Home regimen includes flecainide, metoprolol succinate, dabigatran
-Has had some mild tachycardia in the low 100s though otherwise stable
-Will transition Pradaxa to full dose Lovenox tonight if still not tolerating intake
#Primary hypertension
#Orthostatic hypotension
-Not on first-line hypertensive agents, on metoprolol XL for AF history, no history of systemic disease
-Complicated by orthostasis for which she takes midodrine 10 mg twice daily
-Monitor here for signs of orthostasis
#S/p biliary stent
-No signs on imaging of recurrent obstruction, LFTs stable
Diet: CLD, advance as tolerated
DVT prophylaxis: home Pradaxa (will transition to Lovenox if not improving oral intake)
CODE STATUS: Full code
Anticipated Discharge: 24 - 48 hours
Subjective/Interval History
-
Date of Service: January 24, 2025
Seen and examined at the bedside. No acute events reported overnight. AFVSS, heart rate 110/min
Potassium improved today, calcium remains low at 7.1, corrected calcium 8.1 with albumin 2.7. Pancreatic elastase level 25 (normal > 100)
She states her symptoms are slightly improved today, would like to try meal with more sustenance
Objective Data
-
Labs:
Laboratory Results
01/24/25 01/24/25
08:36 08:37
WBC 43.8 H*
Hgb 10.2 L
Hct 31.4 L
Plt Count 129 L
Sodium 135
Potassium 4.4 D
Chloride 107
Carbon Dioxide 21 L
BUN 7
Creatinine 0.6
Glucose 85
Calcium 7.1 L
Total Bilirubin 0.6
AST 25
ALT 24
Alkaline Phosphatase 183 H
Vital Signs:
Vital Signs
Temp Pulse Resp BP Pulse Ox
98.1 F 110 18 114/60 97
01/24/25 07:26 01/24/25 07:26 01/24/25 07:26 01/24/25 07:26 01/24/25 07:26
I&O
01/23/25 01/24/25 01/25/25
06:59 06:59 06:59
Intake Total 240 / 240 840 / 840
Balance 240 / 240 840 / 840
Review of Systems
-
History Source: Patient
All other systems: Reviewed and negative
Physical Exam
-
General: Well Developed, Well Nourished and No Apparent Distress
HEENT: Normocephalic, Atraumatic, Moist Mucous Membranes and Anicteric
Respiratory: Clear to Auscultation and Non Labored Respirations; Negative Accessory Resp Muscle Use
Cardiac: Regular Rhythm, S1/S2 and Tachycardic; Negative Murmur, Rub or Gallop
GI: Soft, Nontender, Nondistended and Normal Bowel Sounds
Musculoskeletal: No Clubbing, No Cyanosis and No Edema
Skin: Warm, Dry and Normal Turgor; Negative Rash
Neuro: AO x 3 and Nonfocal/Grossly Intact
Psych: Calm
Data Reviewed
-
Labs: Labs Reviewed by me, Discussed with Physician (GI), Discussed with Nurse and Discussed with Patient
[2025-01-24] MEDS: LOVENOX 55 MG SC ×2 (12:30→23:39)
[2025-01-24] MEDS: CALCIUM GLUCONATE 100 IV (12:30)
[2025-01-24] MEDS: SODIUM PHOSPHATE 255 MEQ IV (14:00)
[2025-01-24 15:31] VITALS: BP 114/51
[2025-01-24] MEDS: ZENPEP DELAYED RELEASE CAPSULE PO ×2 (15:39→22:34)
--- NOTE | 2025-01-24 17:14 | PTCARENOTE ---
per primary RN, patient deaccessed right sq power port. VAT RN assessed port and removed choe needle. patient somehow ripped cap from extension tubing at iv cap site,patient does not recall turn of events. tubing was sheared with cap off end,
bleeding noted from extension tubing via port. port left unaccessed at this time, peripheral iv site established. patient resting
--- NOTE | 2025-01-24 19:32 | PTCARENOTE ---
Patient continues with c/o nausea. PRN medications administered with some + effects. Pt noted to make multiple trips to the bathroom and continues with diarrhea, refuses Imodium today. Patient also refusing all PO meds, was made aware again of
patients refusals. Family at bedside and updated on POC. Checked frequently throughout shift, call charlton within reach.
[2025-01-24 23:12] VITALS: BP 126/61
--- NOTE | 2025-01-25 06:15 | W.PN.GI.CBS2 ---
Today's Communication / Plan
-
Please see assessment plan for details.
Assessment / Plan
-
1. Nausea/vomiting: Likely multifactorial, most likely some component of delayed gastric emptying given head of pancreas mass as symptoms preceded chemotherapy, though likely now some component of chemotherapy as well. No vomiting while in the
hospital, now overall much improved, tolerated full liquids. At this point we will advance to low residue diet and discussed continued dietary modifications with small, frequent, low bulky meals. If tolerating is okay to DC from GI standpoint.
2. Diarrhea: Likely chemotherapy-induced, with low fecal elastase possibly some component of pancreatic insufficiency. Her diarrhea is much improved overall. Will continue supportive care, Imodium and pancreatic enzymes.
Subjective
Subjective
Date of Service: January 25, 2025
Patient feeling much better overall, no nausea this morning, tolerated full liquids without vomiting. Still some loose stools though much improved overnight, no diarrhea this morning. No abdominal pain, fever or chills.
Objective
Data Reviewed
Laboratory Data:
Laboratory Results
Phosphorus 1.1 mg/dl (2.5-4.5) L 01/24/25 08:37
Magnesium 1.8 mg/dl (1.6-2.3) 01/24/25 08:37
Total Bilirubin 0.6 mg/dl (0.2-1.3) 01/24/25 08:37
AST 25 U/L (14-36) 01/24/25 08:37
ALT 24 U/L (0-35) 01/24/25 08:37
Alkaline Phosphatase 183 U/L (38-126) H 01/24/25 08:37
Lipase 168 U/L (23-300) 01/21/25 12:20
Vital Signs and I&O:
Vital Signs
Temp Pulse Resp BP Pulse Ox
97.5 F 102 18 126/61 96
01/24/25 23:12 01/24/25 23:12 01/24/25 23:12 01/24/25 23:12 01/24/25 23:12
I&O
01/23/25 01/24/25 01/25/25
06:59 06:59 06:59
Intake Total 240 / 240 840 / 840 1760 / 1760
Balance 240 / 240 840 / 840 1760 / 1760
Physical Exam
Physical Exam
General: NAD
Abdomen: normal bowel sounds, soft, no tenderness, no masses or bruits, no ascites
[2025-01-25 06:36] LABS: Hematocrit 30.2 % (37.0-47.0); Hemoglobin 10.1 g/dL (12.0-16.0); Mean Corp Hgb Conc. 33.4 g/dL (33.0-37.0); Mean Corpuscular Hgb 28.1 pg (27.0-31.0); Mean Corpuscular Volume 83.9 fL (81.0-99.0); Mean Platelet Volume 10.6 fL (7.4-10.4); Platelet Count 163 10^3/uL (130-400); Red Cell Dist. Width 15.9 % (11.5-14.5)
[2025-01-25 06:47] LABS: ALT (SGPT) 21 U/L (0-35); AST (SGOT) 22 U/L (14-36); Albumin 2.5 g/dl (3.5-5.0); Alkaline Phosphatase 209 U/L (38-126); Blood Urea Nitrogen 4 mg/dl (7-17); Calcium 7.7 mg/dl (8.4-10.2); Carbon Dioxide 24 mmol/L (22-30); Chloride 107 mmol/L (98-107); Estimated Creatinine Clearance 61 ml/min; Glucose 101 mg/dl (70-99); Magnesium 1.8 mg/dl (1.6-2.3); Potassium 3.5 mmol/L (3.5-5.1); Sodium 136 mmol/L (135-145); Total Bilirubin 0.6 mg/dl (0.2-1.3); Total Protein 4.7 g/dl (6.3-8.2); eGFR > 60.00
[2025-01-25 07:05] VITALS: BP 115/57
[2025-01-25 07:21] LABS: Absolute Neutrophils -Man Diff 44.1 10^3/uL (1.4-6.5); Atypical Lymphocytes 1 %; Band Neutrophils 12 % (0-3); Lymphocytes 6 % (20-51); Monocytes 1 % (2-9); Segmented Neutrophils 78 % (42-75)
[2025-01-25 07:22] LABS: Metamyelocytes 1 % (-); Platelets Checked Yes
[2025-01-25 07:24] LABS: Normal RBC Morphology Yes; Total Cells Counted 100
--- NOTE | 2025-01-25 07:35 | PTCARENOTE ---
Patient found with critical lab of 49. [employer] Michelle Francisco notified. Will continue to monitor.
[2025-01-25] MEDS: TAMBOCOR PO ×2 (08:04→21:33)
[2025-01-25] MEDS: TOPROL XL PO (08:04)
[2025-01-25] MEDS: ZENPEP DELAYED RELEASE CAPSULE PO ×3 (08:04→21:33)
[2025-01-25] MEDS: ProAmatine PO ×2 (08:04→21:33)
--- NOTE | 2025-01-25 09:30 | PTCARENOTE ---
pt refusing to take PO meds this AM. Pt states that if she takes PO meds she will throw up. pt reports mild nausea this AM. tolerated diet yesterday and advanced to low res diet this AM. Dr. Samayoa notified via tt
--- NOTE | 2025-01-25 10:24 | W.PN.HOSP.TC ---
Today's Communication/Plan
-
Need Zofran before taking oral medications
Plan discharge
Assessment / Plan
Assessment / Plan
Impression
Patient is an 85-year-old female, with past medical history of pancreatic cancer in the head of pancreas. She is on chemotherapy and she started to have intractable nausea and vomiting starting January 21, 2025. Primary oncologist unsure if it is
related to primary cancerous process or related to chemotherapy since she had the symptoms prior to the chemotherapy. She would be considering decreasing the doses of chemotherapy since the patient is not feeling good at baseline which is the goal.
Assessment/plan
Intractable nausea and vomiting secondary to pancreatic head mass/pancreatic insufficiency from tumor/chemotherapy related symptoms
C. difficile negative, Cryptosporidium negative, norovirus negative, stool culture negative for leukocytes, Campylobacter, Salmonella, Shigella.
No Yersinia isolated, Shiga toxin pending
CT A/P with IV contrast showed diverticuli with mild wall thickening, and mild jejunal wall thickening
Tolerating low residue diet
Plan to stop IV fluids today
Continue to monitor her BMP
Replete electrolytes as needed
GI consultation appreciated-Will continue supportive care
Primary oncologist consult appreciated-okay to discharge, will check for growth factor to assess leukocytosis
Leukocytosis with left shift
White cell count rising again from last two days
Related to recent Neulasta
No fevers, no abdomen pain in context of possible diverticulitis on CT
Continue to monitor off of antibiotics for now
Trend CBC and temperature curve
Thrombocytopenia
Likely related to chemotherapy
Initial platelet count near 90 though had signs of platelet clumping; repeat platelet count 87; now uptrending > 100-wnl 163
Unclear etiology, is on Pradaxa but no obvious signs of bleeding and hemoglobin stable with hemodilution
Has not received any heparin here, low suspicion for HIT; no signs of thrombotic events
Trend CBC, transfuse for platelets <50 with bleed or <10 without
Positive UA
Likely asymptomatic bacteriuria, denies any UTI symptoms
Urine culture-contaminated sample
Paroxysmal AF
Nonvalvular, no known electrophysiologic intervention
Home regimen includes flecainide, metoprolol succinate, dabigatran
Has had some mild tachycardia in the low 100s though otherwise stable
Can continue pradaxa,patient tolerating orally
#Other medical conditions
Primary hypertension
Orthostatic hypotension
Not on first-line hypertensive agents, on metoprolol XL for AF history, no history of systemic disease
Complicated by orthostasis for which she takes midodrine 10 mg twice daily
Monitor here for signs of orthostasis
#S/p biliary stent
-No signs on imaging of recurrent obstruction, LFTs stable
Diet: CLD, advance as tolerated
DVT prophylaxis: home Pradaxa (will transition to Lovenox if not improving oral intake)
CODE STATUS: Full code
Anticipated Discharge: Within 24 hours
Subjective/Interval History
-
Date of Service: January 25, 2025
Patient is feeling fine
No nausea or vomiting, tolerating low residue diet well, plan to switch to regular diet as per GI recommendations today
Still has some diarrhea but is significantly improved
Noticed no blood
Objective Data
-
Labs:
Laboratory Results
01/25/25 01/25/25
05:50 05:51
WBC 49.0 H*
Hgb 10.1 L
Hct 30.2 L
Plt Count 163 D
Sodium 136
Potassium 3.5
Chloride 107
Carbon Dioxide 24
BUN 4 L
Creatinine 0.6
Glucose 101 H
Calcium 7.7 L
Total Bilirubin 0.6
AST 22
ALT 21
Alkaline Phosphatase 209 H
Vital Signs:
Vital Signs
Temp Pulse Resp BP Pulse Ox
98.1 F 98 18 115/57 97
01/25/25 07:05 01/25/25 07:05 01/25/25 07:05 01/25/25 07:05 01/25/25 07:05
I&O
01/24/25 01/25/25 01/26/25
06:59 06:59 06:59
Intake Total 840 / 840 1760 / 1760
Balance 840 / 840 1760 / 1760
Review of Systems
-
All other systems: Reviewed and negative
Physical Exam
-
General: Well Developed, No Apparent Distress, Comfortable and Conversant
HEENT: Normocephalic, Atraumatic and Moist Mucous Membranes
Respiratory: Clear to Auscultation and Other ( Negative Accessory Resp Muscle Use)
Cardiac: Regular Rhythm, S1/S2 and Other (Negative Murmur, Rub or Gallop)
GI: Soft, Nontender, Nondistended and Normal Bowel Sounds
Musculoskeletal: No Clubbing, No Cyanosis and No Edema
Skin: Warm, Dry and Normal Turgor
Neuro: Awake, Oriented and Nonfocal/Grossly Intact
Psych: Calm
[2025-01-25] MEDS: POTASSIUM PHOSPHATE 259.0909 MEQ IV (10:50)
[2025-01-25] MEDS: ZOFRAN 4 MG IV ×2 (10:53→20:50)
[2025-01-25] MEDS: FLUSH (NSS) 4 FLUSH IV (10:53)
[2025-01-25] MEDS: LOVENOX SC (13:05)
[2025-01-25 14:55] VITALS: BP 114/52
[2025-01-25] MEDS: D5LR 1000 IV (16:02)
[2025-01-25] MEDS: COMPAZINE 10 MG IV (16:06)
[2025-01-25] MEDS: D5LR IV (16:11)
[2025-01-25] MEDS: ZENPEP DELAYED RELEASE CAPSULE 1 CAPSULE PO (16:51)
[2025-01-25] MEDS: OSCAL 500 + D PO (21:32)
--- NOTE | 2025-01-25 23:00 | PTCARENOTE ---
Patient given Zofran as per prn prior to med administration. After approx 3,in patient stated she did not feel nauseous and would take her pm medications. However she took one sip of water and vomited yellow emesis. She did not have further
nausea or vomiting but did not want her medications.
[2025-01-25] MEDS: LOVENOX 55 MG SC (23:37)
[2025-01-25 23:45] VITALS: BP 114/54
[2025-01-26 05:28] VITALS: BMI 24.3
[2025-01-26 06:11] LABS: Hematocrit 30.1 % (37.0-47.0); Hemoglobin 10.1 g/dL (12.0-16.0); Mean Corp Hgb Conc. 33.6 g/dL (33.0-37.0); Mean Corpuscular Hgb 28.1 pg (27.0-31.0); Mean Corpuscular Volume 83.6 fL (81.0-99.0); Mean Platelet Volume 10.1 fL (7.4-10.4); Platelet Count 188 10^3/uL (130-400); Red Cell Dist. Width 16.2 % (11.5-14.5); White Blood Cell Count 49.5 10^3/uL (4.8-10.8)
[2025-01-26 06:44] LABS: Absolute Neutrophils -Man Diff 43.5 10^3/uL (1.4-6.5); Band Neutrophils 2 % (0-3); Eosinophils 1 % (0-6); Lymphocytes 7 % (20-51); Metamyelocytes 1 % (-); Monocytes 0 % (2-9); Myelocytes 3 % (-); Platelets Checked Yes; Segmented Neutrophils 86 % (42-75)
[2025-01-26 06:45] LABS: Anisocytosis 1+; Microcytosis 1+; Normal RBC Morphology No; Pelger-Huet 1+; Total Cells Counted 100
[2025-01-26 07:05] VITALS: BP 121/67
[2025-01-26 07:49] LABS: ALT (SGPT) 18 U/L (0-35); AST (SGOT) 21 U/L (14-36); Albumin 2.3 g/dl (3.5-5.0); Alkaline Phosphatase 241 U/L (38-126); Blood Urea Nitrogen 5 mg/dl (7-17); Calcium 6.8 mg/dl (8.4-10.2); Carbon Dioxide 25 mmol/L (22-30); Chloride 110 mmol/L (98-107); Estimated Creatinine Clearance 61 ml/min; Glucose 83 mg/dl (70-99); Magnesium 1.6 mg/dl (1.6-2.3); Potassium 3.4 mmol/L (3.5-5.1); Sodium 138 mmol/L (135-145); Total Bilirubin 0.6 mg/dl (0.2-1.3); Total Protein 4.4 g/dl (6.3-8.2); eGFR > 60.00
[2025-01-26] MEDS: TOPROL XL PO (08:09)
[2025-01-26] MEDS: TAMBOCOR PO ×2 (08:09→11:14)
[2025-01-26] MEDS: ZENPEP DELAYED RELEASE CAPSULE PO ×3 (08:09→17:09)
[2025-01-26] MEDS: OSCAL 500 + D PO (08:09)
[2025-01-26] MEDS: ProAmatine PO (08:09)
--- NOTE | 2025-01-26 08:34 | W.PN.ONC2 ---
Today's Communication / Plan
-
.
Impression
Impression
nausea/ vomiting
stage IV pancreatic cancer - on chemotherapy - gem/abraxane - w/ GCSF 01/15
leukocytosis
thrombocytopenia
anemia
Plan
Plan
1. Nausea/ vomiting
-the etiology of this patient's nausea and vomiting likely chemo & malignancy
-CT imaging w/ changes c/w possible small bowel enteritis - no obstruction
-cont IVF/ antiemetics
-supportive care
2. Stage IV pancreatic cancer - s/p 2 tx w/ gem/abraxane - GCSF - 01/15
-leukocytosis - component potentially related to GCSF
-anemia/ thrombocytopenia - post chemotherapy
-follow CBC
Will continue to follow with you.
Subjective/Objective
Subjective
no new complaints
improved appetite, nausea controlled
Vital Signs:
Vital Signs
Temp Pulse Resp BP Pulse Ox
97.8 F 89 18 121/67 97
01/26/25 07:05 01/26/25 07:05 01/26/25 07:05 01/26/25 07:05 01/26/25 07:05
Lab Results:
Laboratory Data
WBC 49.5 10^3/uL (4.8-10.8) H* 01/26/25 05:49
Hgb 10.1 g/dL (12.0-16.0) L 01/26/25 05:49
Plt Count 188 10^3/uL (130-400) 01/26/25 05:49
eGFR > 60.00 01/26/25 05:49
Physical Exam
HEENT: Moist Mucous Membranes; No Jaundice
Cardiology: Normal Sinus Rhythm
Pulmonary: Clear
GI: Soft
Extremities: Pulses Present
[2025-01-26] MEDS: CALCIUM GLUCONATE 100 IV (08:51)
[2025-01-26] MEDS: ZOFRAN 4 MG IV ×2 (09:00→16:42)
--- NOTE | 2025-01-26 09:21 | W.PN.HOSP.TC ---
Today's Communication/Plan
-
Trial to crush medications and see how patient tolerates it with Zofran
replete electrolytes
Plan discharge
Assessment / Plan
Assessment / Plan
Impression
Patient is an 85-year-old female, with past medical history of pancreatic cancer in the head of pancreas. She is on chemotherapy and she started to have intractable nausea and vomiting starting January 21, 2025. Primary oncologist unsure if it is
related to primary cancerous process or related to chemotherapy since she had the symptoms prior to the chemotherapy. She would be considering decreasing the doses of chemotherapy since the patient is not feeling good at baseline which is the goal.
Assessment/plan
Intractable nausea and vomiting secondary to pancreatic head mass/pancreatic insufficiency from tumor/chemotherapy related symptoms
C. difficile negative, Cryptosporidium negative, norovirus negative, stool culture negative for leukocytes, Campylobacter, Salmonella, Shigella.
No Yersinia isolated, Shiga toxin negative
CT A/P with IV contrast showed diverticuli with mild wall thickening, and mild jejunal wall thickening
Tolerating low residue diet
Continue to monitor her BMP
Replete electrolytes as needed
GI consultation appreciated-Will continue supportive care
Dr. Ojeda, primary oncologist consult appreciated-okay to discharge, will check for growth factor to assess leukocytosis
Leukocytosis with left shift
White cell count rising again from last 3 days, now 49.5
Related to recent Neulasta
No fevers, no abdomen pain in context of possible diverticulitis on CT
Continue to monitor off of antibiotics for now
Trend CBC and temperature curve
Thrombocytopenia
Likely related to chemotherapy
Initial platelet count near 90 though had signs of platelet clumping; repeat platelet count 87; now uptrending > 100-wnl 188
Positive UA
Likely asymptomatic bacteriuria, denies any UTI symptoms
Urine culture-contaminated sample
Paroxysmal AF
Nonvalvular, no known electrophysiologic intervention
Home regimen includes flecainide, metoprolol succinate, dabigatran
Has had some mild tachycardia in the low 100s though otherwise stable
Patient currently on Lovenox, resume dabigatran on discharge
#Other medical conditions
Primary hypertension
Orthostatic hypotension
Not on first-line hypertensive agents, on metoprolol XL for AF history, no history of systemic disease
Complicated by orthostasis for which she takes midodrine 10 mg twice daily
Monitor here for signs of orthostasis
#S/p biliary stent
-No signs on imaging of recurrent obstruction, LFTs stable
Tolerating oral medications with apple sauce,didn't throw up
Diet: Tolerating low residue diet
DVT prophylaxis: Lovenox
CODE STATUS: Full code
Anticipated Discharge: 24 - 48 hours
Subjective/Interval History
-
Date of Service: January 26, 2025
No further diarrhea, no nausea, still not tolerating oral medications
Objective Data
-
Labs:
Laboratory Results
01/26/25
05:49
WBC 49.5 H*
Hgb 10.1 L
Hct 30.1 L
Plt Count 188
Sodium 138
Potassium 3.4 L
Chloride 110 H
Carbon Dioxide 25
BUN 5 L
Creatinine 0.6
Glucose 83
Calcium 6.8 L*
Total Bilirubin 0.6
AST 21
ALT 18
Alkaline Phosphatase 241 H
Vital Signs:
Vital Signs
Temp Pulse Resp BP Pulse Ox
97.8 F 89 18 121/67 97
01/26/25 07:05 01/26/25 07:05 01/26/25 07:05 01/26/25 07:05 01/26/25 07:05
I&O
01/25/25 01/26/25 01/27/25
06:59 06:59 06:59
Intake Total 1760 / 1760 860 / 860
Balance 1760 / 1760 860 / 860
Review of Systems
-
All other systems: Reviewed and negative
Physical Exam
-
General: No Apparent Distress, Comfortable, Conversant and Other (A lot of hair fall noticed on bed)
HEENT: Normocephalic, Atraumatic and Moist Mucous Membranes
Respiratory: Clear to Auscultation and Non Labored Respirations
Cardiac: Regular Rhythm, S1/S2 and Other (No murmurs rubs or gallops)
GI: Soft, Nontender, Nondistended and Normal Bowel Sounds
Musculoskeletal: No Clubbing, No Cyanosis and No Edema
Skin: Warm and Dry
Neuro: Awake, Oriented and Nonfocal/Grossly Intact
Psych: Calm
--- NOTE | 2025-01-26 09:27 | W.PN.GI.CBS2 ---
Addendum entered and electronically signed by Edvin Cannon MD 01/26/25 13:51:
I saw and examined the patient.
The LABORATORY TECHNOLOGY TEACHER or PA's note was reviewed and I agree with the note.
Comment: PT tolerating diet and meds
ABD soft NT
REC:
OK for d/c
Encouraged pt/family to take Ensure suplements
Cont panc enzymes
F/U with Oncology to schedule next chemo- reports this weeks round postponed due to hospitalization
Will sign off
Original Note:
Today's Communication / Plan
-
monitor oral and medication intakes
cont Pancreatic enzymes and imodium PRN
if continued pill dysphagia consider esophgram with barium tablet
pt asking about discharge -- if tolerating diet and diarrhea continued stable -- stable from GI for discharge
Assessment / Plan
-
Pt is a 85yo with Stage IV pancreatic cancer with mets to bone and liver on 2nd dose of CTX that started 3 weeks ago with Neulasta administered after, PAF on Pradaxa, HTN, orthostatic hypotension, GERD, cognitive impairment, biliary obstruction with
stenting who initially presented to with 2 week hx of Nausea, vomiting and diarrhea. Asked to evaluate for the same.
1. Nausea/vomiting: Likely multifactorial, most likely some component of delayed gastric emptying given head of pancreas mass as symptoms preceded chemotherapy, though likely now some component of chemotherapy as well. Pt now feeling improved.
Admits to tolerating diet but some difficulty with pills
2. pill dysphagia -- to reattempt taking pills today if continued issues consider esophagram with barium tablet
2. Diarrhea: Likely chemotherapy-induced, with low fecal elastase possibly some component of pancreatic insufficiency. Imodium and pancreatic enzymes.pt states diarrhea much improved-- no stools overnight
Subjective
Subjective
Date of Service: January 26, 2025
/12 brown loose stools, on low residue diet -- pt feeling better -- less diarrhea. She reports eating ok yesterday but difficulty with pills sticking in upper esophagus-- pt asking about discharge
Objective
Data Reviewed
Laboratory Data:
Laboratory Results
01/26/25 05:49
01/26/25 05:49
Laboratory Results
Phosphorus 2.0 mg/dl (2.5-4.5) L 01/25/25 05:51
Magnesium 1.6 mg/dl (1.6-2.3) 01/26/25 05:49
Total Bilirubin 0.6 mg/dl (0.2-1.3) 01/26/25 05:49
AST 21 U/L (14-36) 01/26/25 05:49
ALT 18 U/L (0-35) 01/26/25 05:49
Alkaline Phosphatase 241 U/L (38-126) H 01/26/25 05:49
Lipase 168 U/L (23-300) 01/21/25 12:20
Vital Signs and I&O:
Vital Signs
Temp Pulse Resp BP Pulse Ox
97.8 F 89 18 121/67 97
01/26/25 07:05 01/26/25 07:05 01/26/25 07:05 01/26/25 07:05 01/26/25 07:05
I&O
01/25/25 01/26/25 01/27/25
06:59 06:59 06:59
Intake Total 0 / 1760 860 / 860
Balance 1760 / 1760 860 / 860
Physical Exam
Physical Exam
HEENT: Anicteric and Moist mucous membranes
Cardiology: Normal Sinus Rhythm
Pulmonary: Clear
GI: Soft, Non Distended and Non Tender
Extremities: No Edema
Neuro: Non Focal
[2025-01-26] MEDS: KCL 270 MEQ IV (10:07)
[2025-01-26] MEDS: OSCAL 500 + D 500 MG PO (11:14)
[2025-01-26] MEDS: TOPROL XL 25 MG PO (11:14)
[2025-01-26] MEDS: ProAmatine 10 MG PO (11:14)
--- NOTE | 2025-01-26 11:20 | PTCARENOTE ---
Pt. only able to tolerate PO meds crushed and dissolved in apple sauce. Pt states she has a food aversion to apple sauce that is making her vomit.
[2025-01-26] MEDS: LOVENOX 55 MG SC (13:13)
[2025-01-26] MEDS: MAGNESIUM SULFATE 50 IV (13:26)
[2025-01-26 14:56] VITALS: BP 112/55
--- NOTE | 2025-01-26 14:59 | CM ---
Met with patient and her daughter who was at bedside to obtain information for assessment. Patient stated that she lives with her spouse in Independent Living at [facility]. She described herself as independent with all of her ADLs, personal
care, dressing and bathing. She has no DME. She has not had VN. She did go to a SNF after she was discharged from having Sepsis. Her daughter stated that it is called [facility] and it is close to where she lives. Patient has no DME. She stated that
she did not have VN in the past, but would like [facility] services at discharge.
Plan for outpatient Palliative Care appointment.
[facility]
PCP: Dr. Cook.
--- NOTE | 2025-01-26 15:04 | W.DCSUMMARY ---
Documented by User: Alexandre Jimenez MD, Resident 01/27/25 14:11
Discharge Summary
Discharge Data
Date of Admission: 01/21/25
Date of Discharge: 01/27/25
-
Pending Results: No
Hospital Course
Discharging Physician :
Mao Samayoa
Disposition :
Home with home care
Primary care physician :
Unknown
Principal Discharge diagnosis :
Intractable N/V secondary to pancreatic head mass with EPI, chemotherapy/Electrolyte deficiencies/Diarrhea
Chronic Discharge diagnosis :
Paroxysmal A-fib, orthostatic hypotension, hypertension, pancreatic cancer mets to the liver,S/p biliary stent
Hospital Course :
1.Intractable nausea and vomiting secondary to pancreatic head mass/pancreatic insufficiency from tumor/chemotherapy related symptoms
C. difficile negative, Cryptosporidium negative, norovirus negative, stool culture negative for leukocytes, Campylobacter, Salmonella, Shigella.
No Yersinia isolated, Shiga toxin negative
CT A/P with IV contrast showed diverticuli with mild wall thickening, and mild jejunal wall thickening
Improved with Zofran, IV fluids, supportive care
Tolerating food and drink well
Tolerating oral meds in crushed form with prior medication with zofran
Improved intake helped with electrolyte abnormalities
recheck BMP/mag/Phos in 1 week as OP.
2.Diarrhea.
Multifactorial with EPI from infiltrative pancreatic mass as well as effect of chemotherapy
Started on Creon due to elastase level <25
Diarrhea improved
Important imaging findings :
Head CT 01/21/2025-
No acute intracranial abnormalities.
Abdomen/Pelvis CT 01/21/2025
IMPRESSION:
Sigmoid diverticulosis markedly limited without oral contrast, cannot exclude some mild wall thickening/acute diverticulitis.
No intestinal obstruction or free air. Some apposed loops of unopacified jejunum in the left abdomen with at least mild relative wall thickening, CANNOT EXCLUDE MILD SMALL BOWEL ENTERITIS.
Common bile duct stent and pancreatic duct stent seen in both extending into the duodenum. Intrahepatic biliary tract air correlating with the common bile duct stent. No significant suspected intrahepatic biliary tract dilatation.
Known pancreatic head mass overall possibly slightly less prominent in comparison to prior CT.
Slight progression of bony sclerotic metastasis.
Small pericardial effusion, decreased.
Discharge Plan
-
Patient Disposition: Home with Home Care
Discharge Diagnosis/Procedures: Intractable N/V secondary to pancreatic head mass with EPI, chemotherapy/Electrolyte deficiencies/Diarrhea
Condition: Fair
Diet: Low Residue
Additional Diets: Continue low residue diet for few days and slowly resume regular diet
Activity: As tolerated
Driving Restrictions: As prior to admission
Bathing Restrictions: OK to Shower
Blood Work: Repeat bmp, magnesium, phosphorus in a week
Other Services: VN
Referrals:
Nani Fairchild, PRINT WASHER [Specified Professional Personl] - As needed
UNKNOWN - PT NOT,INTERVIEWE [Family Provider] - in less than 1 week
Additional Discharge Medication Instructions: Start calcium carbonate�vitamin D3 500 mg - 5 mcg twice daily
Take zofran 30 min before oral medications
Take crushed medications with apple sauce, to help keeping meds down
Prescriptions:
New
Zenpep 10,000-32,000 -42,000 unit Capsule,Delayed Release(Dr/Ec)
1 cap PO ACHS 14 Days Qty: 56 0RF
ondansetron HCl 4 mg tablet
4 mg PO BID 5 Days Qty: 10 0RF
calcium carbonate-vitamin D3 [Oyster Shell Calcium-Vit D3] 500 mg-5 mcg (200 unit) Tablet
1 tab PO BID 30 Days Qty: 60 0RF
Continued
flecainide 50 mg Tablet
50 mg PO Q12H
omeprazole 20 mg Capsule,Delayed Release(Dr/Ec)
20 mg PO DAILYPRN PRN (Reason: gerd)
metoprolol succinate [Toprol XL] 25 mg Tablet Extended Release 24 Hr
25 mg PO DAILY
midodrine 10 mg Tablet
10 mg PO BID
dabigatran etexilate [Pradaxa] 150 mg Capsule
150 mg PO BID
Discharge Orders:
Discharge Patient (As Directed); Ordered 01/26/25
Ordered By: Alexandre Jimenez
Discharge Date and Time
Discharge Date/Time: 01/26/25 17:29
Print Language: HAITIAN

Documented by User: Mao Samayoa DO 01/26/25 16:58
Discharge Summary
Discharge Data
Date of Admission: 01/21/25
Date of Discharge: 01/26/25
Total time spent discharging patient (in min): 32
Hospital Course
Discharging Physician :
Mao Samayoa
Disposition :
Home with home care
Primary care physician :
Unknown
Principal Discharge diagnosis :
Intractable N/V secondary to pancreatic head mass with EPI, chemotherapy/Electrolyte deficiencies/Diarrhea
Chronic Discharge diagnosis :
Paroxysmal A-fib, orthostatic hypotension, hypertension, pancreatic cancer mets to the liver,S/p biliary stent
Hospital Course :
85-year-old female on chemotherapy for stage IV pancreatic adenocarcinoma that presented with intractable nausea, vomiting, diarrhea. Symptoms have worsened since being initiated on chemotherapy though were noted by oncology to be present prior to
chemotherapy infusions. Upon arrival had CT scan that showed signs of patchy inflammation throughout small bowel and colon with signs of small bowel enteritis as well. Checked fecal elastase which was low at 25. Suspicion for pancreatic exocrine
insufficiency due to infiltrative mass with superimposed chemo induced gastrointestinal symptoms. She was started on Creon for her EPI with improvement to her diarrhea. Was started on Zofran every 6 hours and given supportive IV fluids which
helped improve her nausea and vomiting. Ultimately required Zofran prior to meals and medications in order to hold them down. Was briefly on full dose Lovenox while unable to tolerate pills but transition back to home Pradaxa at time of discharge.
Provided prescription for BMP, magnesium, phosphorus levels for within 1 week of discharge from the hospital. Patient should continue to supplement with calcium/vitamin D. Follow-up with PCP within 1 to 2 weeks. Follow-up with oncology within 1
to 2-week
1.Intractable nausea and vomiting secondary to pancreatic head mass/pancreatic insufficiency from tumor/chemotherapy related symptoms
C. difficile negative, Cryptosporidium negative, norovirus negative, stool culture negative for leukocytes, Campylobacter, Salmonella, Shigella.
No Yersinia isolated, Shiga toxin negative
CT A/P with IV contrast showed diverticuli with mild wall thickening, and mild jejunal wall thickening
Improved with Zofran, IV fluids, supportive care
Tolerating food and drink well
Tolerating oral meds in crushed form with prior medication with zofran
Improved intake helped with electrolyte abnormalities
recheck BMP/mag/Phos in 1 week as OP.
2.Diarrhea.
Multifactorial with EPI from infiltrative pancreatic mass as well as effect of chemotherapy
Started on Creon due to elastase level <25
Diarrhea improved
Important imaging findings :
Head CT 01/21/2025-
No acute intracranial abnormalities.
Abdomen/Pelvis CT 01/21/2025
== END 2025-01-26 17:29 | disposition home health service (06) | DRG 392 ==
LOC: 3 WEST ACU 16:54
PROVIDERS: Physician Assistant; Registered Nurse; ADMITTING PHYSICIAN Internal Medicine; CONSULT PHYSICIAN Internal Medicine Gastroenterology; EMERGENCY PHYSICIAN Emergency Medicine; OTHER PHYSICIAN Internal Medicine Hematology & Oncology
DX: K52.9 Noninfective gastroenteritis and colitis, unspecified (principal); C25.0 Malignant neoplasm of head of pancreas; C79.51 Secondary malignant neoplasm of bone; I31.39 Other pericardial effusion (noninflammatory); E87.1 Hypo-osmolality and hyponatremia; E83.51 Hypocalcemia; K57.30 Diverticulosis of large intestine without perforation or abscess without bleeding; D69.59 Other secondary thrombocytopenia; T45.1X5A Adverse effect of antineoplastic and immunosuppressive drugs, initial encounter; I48.0 Paroxysmal atrial fibrillation; I10 Essential (primary) hypertension; I95.1 Orthostatic hypotension; E87.6 Hypokalemia; D63.8 Anemia in other chronic diseases classified elsewhere; Z90.710 Acquired absence of both cervix and uterus
CPT/HCPCS: 70450; 74177; 76937; 77001; 80053; 81003; 81015; 82248; 82653; 83690; 83735; 84100; 85025; 85027; 87045; 87046; 87070; 87086; 87324; 87328; 87329; 87427; 87449; 87798; 89055; 93005; 96361; 96374; 99285; J2997; Q9967

== ENCOUNTER → 2025-03-18 08:55 | Outpatient (REF) | payer MEDICARE, OTHER, SELFPAY | LOC: MRI 3T 08:55 | PROVIDERS: ATTENDING PHYSICIAN Internal Medicine Hematology & Oncology; FAMILY PHYSICIAN Internal Medicine Geriatric Medicine | DX: C25.0 Malignant neoplasm of head of pancreas (principal); C79.51 Secondary malignant neoplasm of bone; R11.2 Nausea with vomiting, unspecified; R63.4 Abnormal weight loss | CPT/HCPCS: 74183; A9575 ==

== ENCOUNTER 2025-04-19 11:46 | Emergency (ER) | payer MEDICARE, OTHER, SELFPAY ==
[2025-04-19 11:49] VITALS: BP 116/79
[2025-04-19 13:00] VITALS: BP 105/64
--- NOTE | 2025-04-19 13:30 | ED.GENMED ---
History of Present Illness
General
Chief Complaint: Head Injury
Time Seen by Provider: 04/19/25 12:08
History of Present Illness
History of Present Illness:
85-year-old female with history of pancreatic cancer, A-fib on Pradaxa, and hyperlipidemia presents to the emergency department from [facility] after mechanical fall with resultant head injury. She states her foot got caught while she
was attempting to ambulate causing her to fall, he was able to catch her but not fully abrupt the fall resulting in a minor blunt injury to the left side of the head. No reported LOC. She denies headaches or dizziness at this time.
Overall feels well without complaint
Review of Systems
Review of Systems
Allergies reviewed?: Yes
All Other Systems: ROS reviewed and negative except as documented in HPI and ROS
Phy Exam
Physical Exam
Physical Exam:
GEN: Well appearing, NAD, WDWN
HEENT: Normocephalic and atraumatic, oral mucosa moist, no scleral icterus, no nasal congestion
Cardiac: Regular rate
Lung: No respiratory distress, no tachypnea
MSK: No gross deformity or injuries
Skin: Good color, no pallor or jaundice, no rashes
Neuro: AO x3; CN II-XII grossly intact. BUE strength 5/5 in all ludwig, sensation intact and symmetric. BLE strength 5/5 in all ludwig, sensation intact and symmetric
Psych: Calm, cooperative
Course
Orders/Labs/Results
Orders:
Orders
04/19/25 11:[address] [CT Head W/o Iv Contrast] Urgent
Comment:
Reason For Exam: fall with head strike on pradaxa
Vital Signs
Initial and Last Documented VS:
Initial Vital Signs
Pulse Resp BP Pulse Ox
96 16 116/79 95
04/19/25 11:49 04/19/25 11:49 04/19/25 11:49 04/19/25 11:49
Last Documented Vital Signs
Pulse Resp BP Pulse Ox
96 16 116/79 95
04/19/25 11:49 04/19/25 11:49 04/19/25 11:49 04/19/25 13:33
MDM/Problems Addressed
MDM/Problems Addressed:
CT of the head was obtained as the patient is anticoagulated on Pradaxa, fortunately this revealed no intracranial pathology. She otherwise feels well and this was a clearly mechanical fall thus there is no indication for lab work at this time.
*Pulse Oximetry
SaO2: 95
Oxygen Mode of Delivery: Room air
Patient hypoxic: no
*Critical Care Note
Total Time (30-74mins, 75-104mins- exclusive of procedures): Not Applicable
ED Attending Note
-
Portions of this chart may have been created with voice recognition software.� Occasional wrong word or��sound alike� substitutions may have occurred due to the inherent limitations of voice recognition software.
Discharge Plan
Departure
Patient Disposition: Home (Routine Discharge)
Date of Disposition: 04/19/25
Time of Disposition: 13:32
Patient with high blood pressure during this ER visit?: No
Discharge Problem:
Closed head injury, Fall
Instructions: Head Injury in Adults (DC)
Prescriptions:
No Action
flecainide 50 mg Tablet
50 mg PO Q12H
omeprazole 20 mg Capsule,Delayed Release(Dr/Ec)
20 mg PO DAILYPRN PRN (Reason: gerd)
metoprolol succinate [Toprol XL] 25 mg Tablet Extended Release 24 Hr
25 mg PO DAILY
midodrine 10 mg Tablet
10 mg PO BID
dabigatran etexilate [Pradaxa] 150 mg Capsule
150 mg PO BID
Zenpep 10,000-32,000 -42,000 unit Capsule,Delayed Release(Dr/Ec)
1 cap PO ACHS 14 Days Qty: 56 0RF
ondansetron HCl 4 mg tablet
4 mg PO BID 5 Days Qty: 10 0RF
calcium carbonate-vitamin D3 [Oyster Shell Calcium-Vit D3] 500 mg-5 mcg (200 unit) Tablet
1 tab PO BID 30 Days Qty: 60 0RF
Referrals:
UNKNOWN - PT DOES,NOT KNOW [Family Provider]
Interventions
Interventions:
*Risk Screen - Suicide Last Done: 04/19/25 11:52
*Neglect/Abuse Screening Last Done: 04/19/25 11:52
Discharge Date and Time
Print Language: AZERBAIJANI
== END 2025-04-19 13:55 | disposition home or self-care (01) ==
LOC: EMR 11:46
PROVIDERS: EMERGENCY PHYSICIAN Student in an Organized Health Care Education/Training Program
DX: S09.90XA Unspecified injury of head, initial encounter (principal); W01.10XA Fall on same level from slipping, tripping and stumbling with subsequent striking against unspecified object, initial encounter; Y92.531 Health care provider office as the place of occurrence of the external cause; I48.91 Unspecified atrial fibrillation; E78.5 Hyperlipidemia, unspecified; Z79.01 Long term (current) use of anticoagulants; Z85.07 Personal history of malignant neoplasm of pancreas
CPT/HCPCS: 99284; 70450

== ENCOUNTER 2025-06-08 20:57 | Inpatient (IN) | payer MEDICARE, OTHER, SELFPAY ==
[2025-06-08 18:30] VITALS: BP 124/68
[2025-06-08 19:00] VITALS: BP 101/85
[2025-06-08 19:05] LABS: Hematocrit 31.3 % (37.0-47.0); Hemoglobin 10.2 g/dL (12.0-16.0); Mean Corp Hgb Conc. 32.6 g/dL (33.0-37.0); Mean Corpuscular Volume 94.6 fL (81.0-99.0); Platelet Count 211 10^3/uL (130-400); Red Cell Dist. Width 22.4 % (11.5-14.5)
--- NOTE | 2025-06-08 19:06 | ED.GENMED ---
History of Present Illness
General
Chief Complaint: Breathing Problem
Source: patient and family (Son)
Exam Limitations: none
Time Seen by Provider: 06/08/25 18:58
History of Present Illness
History of Present Illness:
Increased shortness of breath over 3 days. Gradual in onset. No pleuritic pain no chest pain no fever. Generally weak. Currently being treated for pancreatic CA. On chemo.
Past History
Past History
ED Past Medical History: Arrthythmia, Cancer and Hypercholesterolemia
ED Past Surgical History: Appendectomy, Cholecystectomy, Gynecological and Other (Port/hernia)
Review of Systems
Review of Systems
All Other Systems: Not applicable
Phy Exam
Physical Exam
Physical Exam:
GENERAL: Alert and oriented. Generally weak appearing
EYE: Orbits normal.
NECK: Supple
CARDIAC: Regular rate and rhythm without any obvious murmurs.
LUNGS: Mild tachypnea at rest. Oxygenating on supplemental oxygen. Decreased breath sounds two thirds the way up the right lung.
ABDOMEN: Soft, without focal tenderness or distention
NEUROLOGICAL: Alert and oriented , grossly non-focal
SKIN: Warm and dry, no rash or lesion, no discoloration, skin intact.
MUSCULOSKELETAL: Mild bilateral lower extremity pitting edema. Some excoriation of the left lower extremity
PSYCH: Normal and appropriate interaction.
Scores
Heart Failure Risk
Heart Failure Risk Score: Not Applicable
Course
Orders/Labs/Results
Orders:
Orders
06/08/25 Dinner
Regular
06/08/25 18:36
Electrocardiogram (*1) Urgent
Reason for Study: Other
Other Reason for Exam: Respiratory Distress
Cardiac Monitoring- Treatment ONCE
EKG- Treatment ONCE
06/08/25 18:45
Complete Blood Count/With Diff Urgent
Comprehensive Metabolic Panel Urgent
06/08/25 19:03
CXR Port [CR Chest Portable - 1 View] Urgent
Comment:
Reason For Exam: Short of breath/hypoxia/decreased breath sounds on
Reason Study Needs to be Portable: Patient Unstable
06/08/25 20:42
Admit/Transfer Patient As Directed
Co-Sign Provider:
Level of Care: Inpatient admission
Assign to:: Telemetry
Physician / Group: Jose Luis Bee
Diagnosis: large right pleural effusion, hypoxia
Reason for Telemetry: Arrhythmia
Date to Stop Telemetry: 06/11/25
Time to Stop Telemetry: 11:00
Reason for Hospitalization: large right pleural effusion, hypoxia
Expected length of stay greater than two midnights?: Yes
ELOS- Estimated Length of Stay in days: 3
I certify the patient meets the requirements for IP care: Yes
PRN Pain Medication Management As Directed
May give lesser potent ordered pain med per pt: Yes
preference::
Protocol:: Medication orders for pain may be administered in a
manner that supports deferring to patient preference
when the pt is:
- Requesting an ordered lesser potent pain medication.
Least to most potent pain medications are defined
as: acetaminophen < NSAID < tramadol < opioids
(morphine, oxycodone, hydromorphone).
- Requesting a lesser dose of the same medication IF
ORDERED.
- Requesting a less intrusive route of administration
if both routes are prescribed by the provider (PO <
IV).
06/08/25 20:43
Code Status As Directed
Resuscitation Status: Do not resuscitate
Reached after discussion with pt or family/Healthcare POA: Yes
Decision communicated with: patient, spouse, son
Physician note:: reviewed POLST they had with them indicating DNR
DNR Bracelet Application ONCE
06/08/25 22:12
Acetaminophen [Tylenol] 650 mg PO Q4HPRN PRN
Flecainide [Tambocor] 50 mg PO Q12H
06/08/25 22:12
Consult Interventional Radiology [IRAD CONSULT] Routine
Consulting Provider: Brian Lindquist
Was physician already notified: Yes
Procedure being ordered, including laterality if applicable: right thoracentesis
Acknowledgement that appropriate orders are entered: Yes
Acid Fast Culture & Smear Routine
CHARLES Source: Pleural Fluid
Specimen Description:
Comment: post procedure
Body Fluid Amylase Routine
Fluid Source: Pleural
Body Fluid Cell Count Routine
What is the Body Fluid: pleural fluid
Comment: post procedure
Body Fluid Glucose Routine
Fluid Source: Pleural
Body Fluid LDH Routine
Fluid Source: Pleural
Body Fluid Protein Routine
Fluid Source: Pleural
Body Fluid Triglycerides Routine
Fluid Source: Pleural
Body Fluid pH Routine
Fluid Source: Pleural
Fluid Culture with Gram Stain Routine
CHARLES Source: Pleural Fluid
Specimen Description:
Comment: post procedure
Fungus Culture Routine
CHARLES Source: Pleural Fluid
Specimen Description:
Fungus Smear Routine
CHARLES Source: Pleural Fluid
Specimen Description:
Activity As Directed
Activity Level: As Tolerated
Pneumatic Compression Sleeves As Directed
Type: Knee high
Vital Signs As Directed
Frequency: Per unit guidelines
Weight As Directed
Frequency: Once
Comment: on admission
O2 Therapy [RESP] Routine
Titrate/Wean O2 to maintain O2 sat greater than (%): 93
Special Instructions: wean as tolerated
Pt Eval And Treat Routine
Activity Level: As Tolerated
DX Deep Vein Thrombosis Video Routine
06/09/25 06:00
Basic Metabolic Panel IN AM
Complete Blood Count/No Diff IN AM
06/09/25 08:00
Calcium Carbonate/Vitamin D3 [Oscal 500 + D] 500 mg PO BID
Metoprolol Xl [Toprol Xl] 25 mg PO DAILY
midodrine 10 mg PO BID
06/11/25 11:00
DC Protocol for Telemetry ONCE
Abnormal Lab Results
06/08/25
18:45
WBC 63.2 H* 10^3/uL
(4.8-10.8)
RBC 3.31 L 10^6/uL
(4.20-5.40)
Hgb 10.2 L g/dL
(12.0-16.0)
Hct 31.3 L %
(37.0-47.0)
MCHC 32.6 L g/dL
(33.0-37.0)
RDW 22.4 H %
(11.5-14.5)
Abs Immat Gran (auto) 4.3 H 10^3/uL
(0-0.05)
Absolute Neuts (auto) 54.2 H 10^3/uL
(1.4-6.5)
Absolute Monos (auto) 1.4 H 10^3/uL
(0.1-0.6)
Immature Gran % 6.9 H %
(0-0.5)
Neutrophils % 85.8 H %
(42.2-75.2)
Lymphocytes % 5.0 L %
(20.5-51.1)
Sodium 131 L mmol/L
(135-145)
Potassium 3.1 L mmol/L
(3.5-5.1)
Calcium 8.1 L mg/dl
(8.4-10.2)
Alkaline Phosphatase 459 H U/L
(38-126)
Total Protein 5.7 L g/dl
(6.3-8.2)
Albumin 2.9 L g/dl
(3.5-5.0)
06/08/25 18:45
06/08/25 18:45
Vital Signs
Initial and Last Documented VS:
Initial Vital Signs
Temp Pulse Resp BP Pulse Ox
98.7 F 112 37 124/68 87
06/08/25 18:30 06/08/25 18:30 06/08/25 18:30 06/08/25 18:30 06/08/25 18:30
Last Documented Vital Signs
Temp Pulse Resp BP Pulse Ox
98.7 F 114 21 108/62 97
06/08/25 18:30 06/08/25 21:45 06/08/25 21:45 06/08/25 21:00 06/08/25 21:15
MDM/Problems Addressed
Differential Diagnosis Includes:
Decreased breath sounds on the right. Either pneumothorax or effusion. More suspicious for effusion. Large effusion on x-ray. Will clearly need thoracentesis although medically at this time is relatively stable. They would likely like to try to
washout the Pradaxa slightly before doing the procedure
*Radiology
Radiology exam reviewed: preliminary read by ED provider (Large right pleural effusion)
*Pulse Oximetry
SaO2: 97
Nasal Cannula flow liters per minute: 5
Oxygen Mode of Delivery: Room air
Patient hypoxic: yes
*Critical Care Note
Total Time (30-74mins, 75-104mins- exclusive of procedures): Not Applicable
ED Attending Note
-
Portions of this chart may have been created with voice recognition software.� Occasional wrong word or��sound alike� substitutions may have occurred due to the inherent limitations of voice recognition software.
Discharge Plan
Departure
Patient Disposition: Admit
Date of Disposition: 06/08/25
Time of Disposition: 19:18
Presentation/result/management discussed w/ accepting MD/DO: Interventional radiology
Discharge Problem:
Respiratory distress/hypoxia, Metastatic pancreatic CA, Large right pleural effusion, Significant leukocytosis
Interventions
Interventions:
*Risk Screen - Suicide Last Done: 06/08/25 18:30
*General Assessment Last Done: 06/08/25 18:30
*Neglect/Abuse Screening Last Done: 06/08/25 18:30
*ED- Fall Risk Assessment Last Done: 06/08/25 22:06
*ED COVID-19 Vaccine History Last Done: 06/08/25 18:30
*Nursing Disposition Last Done: 06/08/25 22:06
ED- Cardiac Assessment Last Done: 06/08/25 19:14
ED- Pulmonary Assessment Last Done: 06/08/25 19:14
Discharge Date and Time
Discharge Date/Time: 06/08/25 22:07
[2025-06-08 19:07] LABS: ALT (SGPT) 19 U/L (0-35); AST (SGOT) 24 U/L (14-36); Albumin 2.9 g/dl (3.5-5.0); Alkaline Phosphatase 459 U/L (38-126); Blood Urea Nitrogen 10 mg/dl (7-17); Calcium 8.1 mg/dl (8.4-10.2); Carbon Dioxide 27 mmol/L (22-30); Chloride 99 mmol/L (98-107); Glucose 97 mg/dl (70-99); Potassium 3.1 mmol/L (3.5-5.1); Sodium 131 mmol/L (135-145); Total Protein 5.7 g/dl (6.3-8.2); eGFR > 60.00
[2025-06-08 19:16] LABS: Anisocytosis 1+; Normal RBC Morphology No; Nucleated Red Blood Cells % 0.1 %
[2025-06-08 19:17] LABS: Hypochromasia 1+; Macrocytosis 2+
[2025-06-08 19:19] LABS: Basophilic Stippling Occasional
[2025-06-08 19:20] LABS: Microcytosis 1+
[2025-06-08 20:00] VITALS: BP 109/62
--- NOTE | 2025-06-08 20:00 | HPS.HSE ---
Addendum entered and electronically signed by Jose Luis Bee DO 06/08/25 21:38:
Patient seen and examined independently. Agree with findings and plan as set forth by MATHEUS Parker.
Patient is an 85y F with metastatic pancreatic cancer on chemotherapy who presents to ED complaining of right sided chest discomfort and SOB x 3 days. Patient was noted to be hypoxemic by VN today and was sent to the ED for further evaluation.
CXR in the ED today shows moderate - large R pleural effusion. Last images (PET in March) showed small effusion at most. No prior history of same. No prior thoracentesis.
Patient denies cough, fevers / chills, etc.
Ass:
Moderate - Large Right Pleural Effusion
Acute Hypoxemic Respiratory Failure secondary to the above
Metastatic Pancreatic Cancer
Leukocytosis secondary to G-CSF
Paroxysmal Atrial Fibrillation
Orthostatic Hypotension
Plan:
Admit for further evaluation and treatment.
Supportive care overnight with pain control, supplemental O2, etc.
IR consulted for thoracentesis in the AM. Orders entered.
Hold Pradaxa for now.
Continue flecainide / metoprolol.
Patient is scheduled for PET-CT on AM - so would be ideal if she were able to be discharged by Saturday PM.
Original Note:
Family Physician
-
Family Physician: Brian Loza DO
Chief Complaint
-
hypoxia and shortness of breath
History of Present Illness
Patient is a 85-year-old female with past medical history significant for pancreatic adenocarcinoma with metastatic disease, paroxysmal atrial fibrillation, orthostatic hypotension and cognitive impairment who presented to [facility] ED for evaluation of
hypoxia and shortness of breath. Patient, spouse and son at bedside who all assisted with HPI. Patient has been feeling short of breath for about 3 days, today visiting nurse was present and found patient to be hypoxic on room air and hypotensive.
EMS was called for patient to come to ED for evaluation. Patient denies any recent fever, chills, cough, chest pain, nausea, vomting, constipation, diarrhea or urinary symptoms.
Medical History
Past Medical History
Past Medical History: Reports Other
Additional Past Medical History:
pancreatic adenocarcinoma with metastatic disease
paroxysmal atrial fibrillation
orthostatic hypotension
cognitive impairment
Past Surgical History: Reports Other
Additional Past Surgical History:
Liver Stent
Hysterectomy
Cholecystectomy
Appendectomy
Hernia Repair
Ureteral Stent
Bunionectomy
Social History
Tobacco: Non-smoker
Alcohol: Other (Rare per patient)
Personal:
Living: With Family ([facility] )
Family History
Family History: Not pertinent
Allergies / Home Medications
Allergies reflects when Allergies were last updated in [facility].
Home Medications with original date entered in [facility]
Allergy/Medication List:
Allergies
Allergy/AdvReac Type Severity Reaction Status Date / Time
oxycodone (From OxyContin) Allergy hallucinati Verified 01/21/25 20:00
ons
[id number]-[id number]-[id number] Reductase Allergy Shortness Verified 01/21/25 20:00
Inhibitor of Breath
Home Medications
flecainide 50 mg tablet 50 mg PO Q12H Arrhythmia 12/10/24
metoprolol succinate 25 mg tablet,extended release 24 hr (Toprol XL) 25 mg PO DAILY Heart Disease/Condition 12/10/24
midodrine 10 mg tablet 10 mg PO BID Blood Pressure 12/10/24
dabigatran etexilate 150 mg capsule (Pradaxa) 150 mg PO BID 01/21/25
calcium 500 mg (as carbonate)-vitamin D3 5 mcg (200 unit) tablet (Oyster Shell Calcium-Vitamin D3) 1 tab PO BID 1 month #60 tabs 01/26/25
Review of Systems
-
History Source: Patient
Constitutional: Denies Fever or Chills
EENT: Denies Sore Throat
Respiratory: Reports Trouble Breathing (shortness of breath ); Denies Cough
Cardiac: Denies Chest Pain, Diaphoresis or Palpitations
Abdomen/GI: Denies Abdominal Pain, Nausea, Vomiting or Diarrhea
: Denies Dysuria, Frequency, Difficulty Voiding or Urgency
Musculoskeletal: Denies Joint Pain or Joint Swelling
Skin: Denies Rash
Neurological: Denies Dizzy, Headache or Numbness
Physical Exam
Vital Signs
Vital Signs
Temp Pulse Resp BP Pulse Ox
98.7 F 111 21 101/85 98
06/08/25 18:30 06/08/25 19:15 06/08/25 19:15 06/08/25 19:00 06/08/25 19:15
Physical Exam
General: Respiratory Distress, Appears Chronically Ill and Cachectic
HEENT: Atraumatic, Nose Appears Normal, Ears Appear Normal and Oxygen (5L via NC )
Respiratory: Decreased Breath Sounds (right middle and lower lobe absent breath sounds) and Other (oxygen 5L in place, tachypnea at rest ); No Non Labored Respirations
Cardiac: S1/S2 and Regular Rhythm; No Murmur, Rub or Gallop
GI: Soft, Non Tender, Non Distended and Normal Bowel Sounds
Musculoskeletal: No Clubbing and No Cyanosis
Skin: Warm (pale )
Neuro: Awake, AO x 3 and Nonfocal/grossly intact
Psych: Calm
Laboratory Results
-
06/08/25 18:45
06/08/25 18:45
Laboratory Results
Total Bilirubin 1.1 mg/dl (0.2-1.3) 06/08/25 18:45
AST 24 U/L (14-36) 06/08/25 18:45
ALT 19 U/L (0-35) 06/08/25 18:45
Alkaline Phosphatase 459 U/L (38-126) H 06/08/25 18:45
Data Reviewed
-
Diagnostic Radiology: Report Reviewed by me
Medical Tests (Nuc Med, Echo, EKG etc): Report Reviewed by me (EKG: SINUS TACHYCARDIA WITH OCCASIONAL PREMATURE VENTRICULAR COMPLEXES LOW VOLTAGE QRS NONSPECIFIC ST AND T WAVE ABNORMALITY)
Lab Data: Labs Reviewed by me (WBC 63.2, hgb 10.2, hct 31.3, Neut 85.8, Na+ 131, K+ 3.1, Ca+ 8.1 (corrected 9.0))
Impression/Plan
-
IMPRESSION/PLAN:
#hypoxia likely 2/2 large right pleural effusion
WBC 63.2, hgb 10.2, hct 31.3, Neut 85.8, Na+ 131, K+ 3.1, Ca+ 8.1 (corrected 9.0)
EKG: SINUS TACHYCARDIA WITH OCCASIONAL PREMATURE VENTRICULAR COMPLEXES
LOW VOLTAGE QRS
NONSPECIFIC ST AND T WAVE ABNORMALITY
CXR:
- Admit to telemetry
- Consult IR for right thoracentesis
- Hold dabigatran (last dose 06/08/2025 @ noon)
#leukocytosis
WBC 63.2
- likely from Neulasta on Saturday
#pancreatic adenocarcinoma with metastatic disease
follows with [facility] for Chemo, 3weeks on 1 week off, last chemo last 06/03/2025 (this week is off week)
- continue to follow up out patient
#paroxysmal atrial fibrillation
- hold dabigatran for thoracentesis
- continue flecainide and metoprolol
#orthostatic hypotension
- continue midodrine
#cognitive impairment
Code status: DNR
DVT prophylaxis: SCDs
[2025-06-08 21:00] VITALS: BP 108/62
[2025-06-08 22:10] VITALS: BP 121/58
--- NOTE | 2025-06-08 22:13 | TRANSFER ---
Pt arrived from ED on a stretcher. Pulled over into bed. VSS. AAOx3. 5L O2 satting at 98%. Pt had an episode of emesis, pt states from being pulled over too fast. Pt cleaned up. Call [facility] within reach.
--- NOTE | 2025-06-08 22:20 | PTCARENOTE ---
Pt had an episode of emesis upon arrival to floor and transfer to hospital bed. Pt stating that she is feeling nauseous. TT house provider. See MAR.
[2025-06-08] MEDS: TAMBOCOR 50 MG PO (22:54)
[2025-06-08] MEDS: ZOFRAN 4 MG IV (22:54)
[2025-06-08 23:29] VITALS: BP 121/58
[2025-06-09] VITALS (9 sets, daily range): BP systolic 100–136; BP diastolic 49–92; BMI 20.2
[2025-06-09 06:19] LABS: Blood Urea Nitrogen 10 mg/dl (7-17); Calcium 7.7 mg/dl (8.4-10.2); Carbon Dioxide 27 mmol/L (22-30); Chloride 100 mmol/L (98-107); Glucose 74 mg/dl (70-99); Potassium 3.4 mmol/L (3.5-5.1); Sodium 132 mmol/L (135-145); eGFR > 60.00
[2025-06-09 06:50] LABS: Hematocrit 29.2 % (37.0-47.0); Hemoglobin 9.7 g/dL (12.0-16.0); Mean Corp Hgb Conc. 33.2 g/dL (33.0-37.0); Mean Corpuscular Volume 96.1 fL (81.0-99.0); Platelet Count 175 10^3/uL (130-400); Red Cell Dist. Width 21.7 % (11.5-14.5)
[2025-06-09] MEDS: TOPROL XL 25 MG PO (09:27)
[2025-06-09] MEDS: OSCAL 500 + D 500 MG PO (09:27)
[2025-06-09] MEDS: TAMBOCOR 50 MG PO ×2 (09:28→21:43)
--- NOTE | 2025-06-09 10:49 | CON.ONC ---
Addendum entered and electronically signed by Monico Fernandes MD 06/09/25 12:41:
Leukocytosis is also noted. Suspect leukemoid reaction possibly from underlying malignancy (vs infection less likely).
Original Note:
Consultation
-
Date Consultation Requested: 06/09/25
Date Consultation Performed: 06/09/25
Performing Provider: Dr. Monico Fernandes
Reason for Consultation: History of pancreatic cancer, on chemo
Impression
Impression
# Pancreatic adenocarcinoma with metastatic disease
# Large right sided pleural effusion
CXR 06/08/2025: Large right pleural effusion. Numerous tiny pulmonary nodules seen better on prior PET/CT exam.
PET scan done in March 2025 revealed positive response to treatment, improved uptake of patient's known pancreatic mass, resolution of hypermetabolic lymph nodes in the mediastinum/portacaval/retroperitoneal regions, improving uptake of osseous
metastases. There was a small right sided pleural effusion on prior imaging.
- IR has been consulted for thoracentesis. Will look for pleural fluid studies to differentiate if transudative or exudative.
- Patient is currently receiving single agent palliative gemcitabine treatment. Patient refusing further chemotherapy as 'it is terrible' and affecting quality of life.
- Order CA 19�9
- PET scan scheduled for tomorrow 06/10/25 10 AM, but will likely not get it done inpatient. Will order CT with oral and IV contrast to compare to prior imaging from March 2025.
Plan
Plan
Order CA 19-[address] with oral and IV contrast to restage.
Patient History
History of Present Illness
Patient is an 85-year-old female with past medical history of pancreatic adenocarcinoma with metastatic disease, paroxysmal atrial fibrillation, orthostatic hypotension who presented to the ED with shortness of breath. Patient stated she has been
having shortness of breath with associated right sided chest discomfort for the past 3 weeks. She was found to be hypoxic at home which prompted the ED visit. [facility] follows [facility], 3 weeks on 1 week off. Last
chemotherapy was last , 06/03/2025. She states gemcitabine 'is terrible' and is affecting her quality of life. She does not want further chemotherapy for right now as she is not tolerating it well. She also does not want hospice currently.
Patient denies fever, chills, cough, or any other symptoms. Imaging in the ED revealed a large right-sided pleural effusion, with PET scan in March showing a small effusion of the same side. She has not had a similar episode in the past.
Past-Medical/Surgical History
Past medical history:
Pancreatic adenocarcinoma with metastatic disease
Paroxysmal atrial fibrillation
Orthostatic hypotension
Cognitive impairment
Past surgical history:
Liver stent
Hysterectomy
Cholecystectomy
Appendectomy
Hernia repair
Ureteral stent
Bunionectomy
Patient Medication
�Medication �Instructions �Recorded �Confirmed �Last Taken �Type
flecainide 50 mg tablet 50 mg PO Q12H Arrhythmia 12/10/24 06/08/25 12/14/24 20:00 History
metoprolol succinate 25 mg 25 mg PO DAILY Heart 12/10/24 06/08/25 12/14/24 08:00 History
tablet,extended release 24 hr Disease/Condition
(Toprol XL)
midodrine 10 mg tablet 10 mg PO BID Blood Pressure 12/10/24 06/08/25 12/14/24 20:00 History
dabigatran etexilate 150 mg 150 mg PO BID 01/21/25 06/08/25 Unknown History
capsule (Pradaxa)
calcium 500 mg (as 1 tab PO BID 1 month #60 tabs 01/26/25 06/08/25 Unknown Rx
carbonate)-vitamin D3 5 mcg (200
unit) tablet (Oyster Shell
Calcium-Vitamin D3)
Active Medications
Generic Name Dose Route Start Last Admin
Trade Name Freq PRN Reason Stop Dose Admin
Acetaminophen 650 mg 06/08/25 22:12
Acetaminophen 325 Mg Tablet PO 07/06/25 22:11
Q4HPRN PRN
mild pain/MURILLO/temp> 100.4F
Calcium/Vitamin D 500 mg 06/09/25 08:00 06/09/25 09:27
Calcium Carbonate 500 Mg/Vitamin D 5 Mcg (200 Units) Tablet PO 07/07/25 07:59 500 mg
BID TONIA Administration
Flecainide Acetate 50 mg 06/08/25 22:00 06/09/25 09:28
Flecainide 50 Mg Tablet PO 07/06/25 21:59 50 mg
Q12H TONIA Administration
Metoprolol Succinate 25 mg 06/09/25 08:00 06/09/25 09:27
Metoprolol 25 Mg Extended Release Tablet PO 07/07/25 07:59 25 mg
DAILY TONIA Administration
Midodrine 10 mg 06/09/25 08:00 06/09/25 09:27
Midodrine 5 Mg Tablet PO 07/07/25 07:59 10 mg
BID TONIA Administration
Sodium Chloride 0 flush 06/08/25 23:00
Sodium Chloride 0.9% (Flush) Syringe IV 07/06/25 22:59
PER PROTOCOL TONIA
Review of Systems
-
History Source: Patient
Constitutional: Reports Fatigue
EENT: Reports No Symptoms
Respiratory: Reports Trouble Breathing
GI: Reports No Symptoms
Breast: Reports No Symptoms
: Reports No Symptoms
Musculoskeletal: Reports No Symptoms
Skin: Reports No Symptoms
Neuro: Reports No Symptoms
Physical Exam
-
General: No Apparent Distress, Comfortable, Conversant, Appears Chronically Ill, Cachetic and Other (Appears pale)
HEENT: Moist Mucous Membranes
Cardiology: Normal Sinus Rhythm, S1 and S2
Pulmonary: Other (Decreased breath sounds over the right mid to lower lobes, dullness to percussion over the area.)
GI: Soft and Normal Bowel Sounds
Musculoskeletal: No Clubbing, No Cyanosis and Clubbing (Bilateral)
Skin: Warm
Psych: Calm
Labs
Lab Results
WBC 64.1 10^3/uL (4.8-10.8) H* 06/09/25 05:21
RBC 3.04 10^6/uL (4.20-5.40) L 06/09/25 05:21
Hgb 9.7 g/dL (12.0-16.0) L 06/09/25 05:21
Hct 29.2 % (37.0-47.0) L 06/09/25 05:21
MCV 96.1 fL (81.0-99.0) 06/09/25 05:21
MCH 31.9 pg (27.0-31.0) H 06/09/25 05:21
MCHC 33.2 g/dL (33.0-37.0) 06/09/25 05:21
RDW 21.7 % (11.5-14.5) H 06/09/25 05:21
Plt Count 175 10^3/uL (130-400) 06/09/25 05:21
MPV 9.8 fL (7.4-10.4) 06/09/25 05:21
Abs Immat Gran (auto) 4.3 10^3/uL (0-0.05) H 06/08/25 18:45
Absolute Neuts (auto) 54.2 10^3/uL (1.4-6.5) H 06/08/25 18:45
Absolute Lymphs (auto) 3.1 10^3/uL (1.2-3.4) 06/08/25 18:45
Absolute Monos (auto) 1.4 10^3/uL (0.1-0.6) H 06/08/25 18:45
Absolute Eos (auto) 0.0 10^3/uL (0-0.7) 06/08/25 18:45
Absolute Basos (auto) 0.0 10^3/uL (0-0.2) 06/08/25 18:45
Immature Gran % 6.9 % (0-0.5) H 06/08/25 18:45
Neutrophils % 85.8 % (42.2-75.2) H 06/08/25 18:45
Lymphocytes % 5.0 % (20.5-51.1) L 06/08/25 18:45
Monocytes % 2.3 % (1.7-9.3) 06/08/25 18:45
Eosinophils % 0.0 % (0-6) 06/08/25 18:45
Basophils % 0.0 % (0-2) 06/08/25 18:45
Creatinine 0.6 mg/dL (0.6-1.0) 06/09/25 05:21
Vital Signs
Vital Signs
Temp Pulse Resp BP Pulse Ox
97.6 F 113 16 121/75 100
06/09/25 07:58 06/09/25 07:58 06/09/25 07:58 06/09/25 07:58 06/09/25 07:58
--- NOTE | 2025-06-09 11:00 | VNURNOTE ---
Chart reviewed. Patient is current with [facility]. Will continue to follow hospital course and DC plans.
--- NOTE | 2025-06-09 12:56 | W.PN.HOSP.TC ---
Today's Communication/Plan
-
Thoracentesis
UA
Assessment / Plan
Assessment / Plan
85-year-old with history of metastatic pancreatic cancer on chemotherapy presented to the hospital with right-sided chest pain and shortness of breath for the past 3 days prior to arrival.
Cachectic
Tachypnea
Decreased breath sounds right side
Abdomen soft and nontender
Bilateral pedal edema
# Shortness of breath and chest pain secondary to right-sided pleural effusion
Acute hypoxic respiratory insufficiency due to above
Likely malignant effusion
Interventional radiology consulted for thoracentesis
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
On chemotherapy with Gemzar
Scheduled for PET scan on
Hematology oncology evaluation appreciated.
# Hypokalemia-replace
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
# Leukocytosis-likely secondary to G-CSF administration
# Anemia likely secondary to malignancy
# Paroxysmal atrial fibrillation-continue Pradaxa, flecainide, metoprolol
# Chronic orthostatic hypotension-continue midodrine
# Cognitive impairment
# History of nephrolithiasis
# Hypoalbuminemia
# DVT prophylaxis-Pradaxa
# DNR
D/W RN
D/W and daughter at bed side
Part of this note was created using voice recognition system. Occasional wrong word or��sound alike� substitutions may have inadvertently occurred due to the inherent limitations of voice recognition software. If noted kindly bring it to my
attention for correction.
Anticipated Discharge: Within 24 hours
Subjective/Interval History
-
Date of Service: June 09, 2025
Objective Data
-
Labs:
Laboratory Results
06/09/25
05:21
WBC 64.1 H*
Hgb 9.7 L
Hct 29.2 L
Plt Count 175
Sodium 132 L
Potassium 3.4 L
Chloride 100
Carbon Dioxide 27
BUN 10
Creatinine 0.6
Glucose 74
Calcium 7.7 L
Vital Signs:
Vital Signs
Temp Pulse Resp BP Pulse Ox
97.5 F 122 18 121/63 99
06/09/25 11:31 06/09/25 11:31 06/09/25 11:31 06/09/25 11:31 06/09/25 11:31
[2025-06-09] MEDS: KCL ELIXIR 40 MEQ PO (14:17)
[2025-06-09 14:22] LABS: Body Fluid Second Tech ASW
--- NOTE | 2025-06-09 15:20 | CM ---
Met with patient to obtain information for assessment. Patient admitted with intractable vomiting.
She resides with her spouse in Independent Living at [facility]. She described herself as independent with all of her ADLs, personal care, dressing and bathing; no DME. Hx of admission to [facility].
Pt is s/p thoracentesis today; drained 1500cc of fluid. Currently pulse ox is 99 on room air.
PT eval pending.
Plan: CM to follow to coordinate all discharge planning needs. Await PT eval results.
[2025-06-09] MEDS: OMNIPAQUE 50 ML PO (16:02)
[2025-06-09] MEDS: OSCAL 500 + D PO (20:10)
[2025-06-10] VITALS (8 sets, daily range): BP systolic 103–139; BP diastolic 52–80; PULSE 102; O2SAT 99; BMI 19.8
[2025-06-10 08:50] LABS: Hematocrit 28.3 % (37.0-47.0); Hemoglobin 9.6 g/dL (12.0-16.0); Mean Corp Hgb Conc. 33.9 g/dL (33.0-37.0); Mean Corpuscular Volume 95.6 fL (81.0-99.0); Platelet Count 126 10^3/uL (130-400); Red Cell Dist. Width 21.7 % (11.5-14.5)
[2025-06-10 09:01] LABS: Blood Urea Nitrogen 9 mg/dl (7-17); Calcium 7.7 mg/dl (8.4-10.2); Carbon Dioxide 29 mmol/L (22-30); Chloride 101 mmol/L (98-107); Estimated Creatinine Clearance 59 ml/min; Glucose 95 mg/dl (70-99); Potassium 4.0 mmol/L (3.5-5.1); Sodium 132 mmol/L (135-145); eGFR > 60.00
[2025-06-10] MEDS: TOPROL XL 25 MG PO (09:34)
[2025-06-10] MEDS: OSCAL 500 + D 500 MG PO ×2 (09:34→20:33)
[2025-06-10] MEDS: TAMBOCOR 50 MG PO ×2 (09:34→22:04)
[2025-06-10 10:28] LABS: Urine Character Clear (Clear)
--- NOTE | 2025-06-10 10:43 | W.PN.ONC2 ---
Today's Communication / Plan
-
CT revealed possible pneumonia - primary team care to treat
Goals of care conversation
Palliative care consult to keep symptoms at bay
CA 19-9 pending
Impression
Impression
# Pancreatic adenocarcinoma with metastatic disease
# Large right sided pleural effusion
CXR 06/08/2025: Large right pleural effusion. Numerous tiny pulmonary nodules seen better on prior PET/CT exam.
PET scan done in March 2025 revealed positive response to treatment, improved uptake of patient's known pancreatic mass, resolution of hypermetabolic lymph nodes in the mediastinum/portacaval/retroperitoneal regions, improving uptake of osseous
metastases. There was a small right sided pleural effusion on prior imaging.
CT chest/abdomen/pelvis: Continued progression of osseous metastatic disease with increased size and number of bone metastases compared to the PET/CT from 03/24/2025. Decreased size of primary mass. Right middle lobe and right lower lobe opacities are
most suspicious for pneumonia
- Thoracentesis was performed yesterday. Auscultation still has decreased lung sounds over the mid and lower right base.
- Latest CT revealed possible pneumonia - primary team to treat.
- Patient is currently receiving single agent palliative gemcitabine treatment. Patient refusing further chemotherapy as 'it is terrible' and affecting quality of life. Given that patient is not tolerating single dose gemcitabine, she likely will
not be able to tolerate any other treatment. Would recommend goals of care conversation, and a palliative care consult to keep symptoms at bay.
- CA 19�9 pending.
Plan
Plan
- Thoracentesis was performed yesterday. Auscultation still has decreased lung sounds over the mid and lower right base.
- Latest CT revealed possible pneumonia - primary team to treat.
- Patient is currently receiving single agent palliative gemcitabine treatment. Patient refusing further chemotherapy as 'it is terrible' and affecting quality of life. Given that patient is not tolerating single dose gemcitabine, she likely will
not be able to tolerate any other treatment. Would recommend goals of care conversation, and a palliative care consult to keep symptoms at bay.
- CA 19�9 pending.
Subjective/Objective
Subjective
Patient is not oriented to place as she thinks she is in [place]. She appears confused, but is slightly upset with the fact that she could not get her PET scan done today. also expressed anger over the same. She is orthostatic (SBP 139
decreased to 108). No other complaints.
Vital Signs:
Vital Signs
Temp Pulse Resp BP Pulse Ox
97.5 F 102 14 105/55 99
06/10/25 07:51 06/10/25 07:51 06/10/25 07:51 06/10/25 07:51 06/10/25 07:51
Lab Results:
Laboratory Data
WBC 75.2 10^3/uL (4.8-10.8) H* 06/10/25 08:35
Hgb 9.6 g/dL (12.0-16.0) L 06/10/25 08:35
Plt Count 126 10^3/uL (130-400) L D 06/10/25 08:35
eGFR > 60.00 06/10/25 08:35
Physical Exam
HEENT: Moist Mucous Membranes
Cardiology: Normal Sinus Rhythm, S1 and S2
Pulmonary: Other (Decreased breath sounds over the right mid to lower lobes.)
GI: Soft and Normal Bowel Sounds
Review of Systems
Review of Systems
Respiratory: Reports Dyspnea
Neurological: Reports Other (Confusion)
Orders
Orders
CA 19-9 pending
[2025-06-10 11:08] LABS: Urine Squamous Cell 21-25 /LPF (Few)
[2025-06-10 11:10] LABS: Urine Red Blood Cell 0-2 /HPF (0-2)
--- NOTE | 2025-06-10 11:10 | W.PN.HOSP.TC ---
Today's Communication/Plan
-
Antibiotics added
Follow CBC
Wean oxygen as tolerated
If not able to wean oxygen today will need repeat chest x-ray to rule out recurrent effusion
Will defer goals of care conversation to hematology oncology
Assessment / Plan
Assessment / Plan
85-year-old with history of metastatic pancreatic cancer on chemotherapy presented to the hospital with right-sided chest pain and shortness of breath for the past 3 days prior to arrival.
Cachectic
Tachypnea
Decreased breath sounds right side
Abdomen soft and nontender
Bilateral pedal edema
CT chest abdomen pelvis-continued progression of osseous metastatic disease with increased number and size of bone metastasis compared to PET scan from 03/24/2025. Ill-defined pancreatic head adenocarcinoma. Moderate right and small to moderate
left pleural effusions due to above Right middle lobe and right lower lobe opacities are most suspicious for pneumonia in the appropriate clinical setting. Moderate pelvic ascites.
# Shortness of breath and chest pain secondary to right-sided pleural effusion
Acute hypoxic respiratory failure
Status post right thoracentesis with 1500 mL of fluid removed 06/09/2024
Cultures negative so far
Likely malignant effusion
# Pneumonia-NOS. Start Zosyn and Doxy. Speech evaluation rule out aspiration
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
On chemotherapy with Gemzar
Scheduled for PET scan on
Hematology oncology evaluation appreciated.
# Hypokalemia-replaced
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
# Leukocytosis-likely secondary to G-CSF administration
# Anemia likely secondary to malignancy
# Paroxysmal atrial fibrillation-continue Pradaxa, flecainide, metoprolol
# Chronic orthostatic hypotension-continue midodrine
# Cognitive impairment
# History of nephrolithiasis
# Hypoalbuminemia
# DVT prophylaxis-Pradaxa
# DNR
D/W RN
D/W at bed side
Part of this note was created using voice recognition system. Occasional wrong word or��sound alike� substitutions may have inadvertently occurred due to the inherent limitations of voice recognition software. If noted kindly bring it to my
attention for correction.
Anticipated Discharge: 24 - 48 hours
Subjective/Interval History
-
Date of Service: June 10, 2025
Objective Data
-
Labs:
Laboratory Results
06/10/25
08:35
WBC 75.2 H*
Hgb 9.6 L
Hct 28.3 L
Plt Count 126 L D
Sodium 132 L
Potassium 4.0
Chloride 101
Carbon Dioxide 29
BUN 9
Creatinine 0.6
Glucose 95
Calcium 7.7 L
Vital Signs:
Vital Signs
Temp Pulse Resp BP Pulse Ox
97.7 F 90 14 103/59 99
06/10/25 10:56 06/10/25 10:56 06/10/25 10:56 06/10/25 10:56 06/10/25 10:56
I&O
06/09/25 06/10/25 06/11/25
06:59 06:59 06:59
Intake Total 480 / 480
Balance 480 / 480
[2025-06-10] MEDS: VIBRAMYCIN 100 MG PO ×2 (12:59→22:04)
[2025-06-10] MEDS: ZOSYN 100 IV ×2 (12:59→17:36)
--- NOTE | 2025-06-10 13:20 | CM ---
Pancreatic CA w mets. CT shows possible PNA. Oncology suggests discussion of GOC and at least palliative. IV/Zosyn. Discharge POC: Therapy recommendation for SNF. Will defer getting preferences until GOC discussed.
[2025-06-11] MEDS: ZOSYN 100 IV ×5 (00:51→23:16)
[2025-06-11 03:00] VITALS: BP 122/66
[2025-06-11 04:31] VITALS: BMI 19.1
[2025-06-11 05:52] LABS: Hematocrit 29.8 % (37.0-47.0); Hemoglobin 10.3 g/dL (12.0-16.0); Mean Corp Hgb Conc. 34.6 g/dL (33.0-37.0); Mean Corpuscular Volume 93.1 fL (81.0-99.0); Platelet Count 119 10^3/uL (130-400); Red Cell Dist. Width 22.0 % (11.5-14.5)
[2025-06-11 07:00] VITALS: BP 99/59
--- NOTE | 2025-06-11 08:50 | PTOTSP ---
Speech Language Pathology
Pt seen for clinical bedside swallow evaluation. Pt reported food sticking in throat at times. She denied any coughing with P.O. intake. P.O. trials of puree, regular solids, and thin liquids provided. Adequate mastication, bolus formation, and
A-P transit noted with no oral residue. No overt signs of aspiration. Given pt reports of globus sensation with solids in addition to current RML/RLL PNA, recommend instrumental swallowing study if in line with GOC. Per discussion with MD, will
plan to complete as no decisions made yet.
Recommend:
(1) VSE
(2) Regular solids/thin liquids
(3) General aspiration precautions
(4) Meds as tolerated
(5) TAKE OUT WAITER to continue to follow
[2025-06-11] MEDS: OSCAL 500 + D PO ×4 (09:36→20:48)
[2025-06-11] MEDS: TOPROL XL PO ×3 (09:36→17:11)
[2025-06-11] MEDS: TAMBOCOR PO ×3 (09:36→20:49)
[2025-06-11] MEDS: VIBRAMYCIN PO ×4 (09:36→20:48)
[2025-06-11 11:00] VITALS: BP 98/62
--- NOTE | 2025-06-11 11:46 | W.PN.HOSP.TC ---
Addendum entered and electronically signed by Jose Rafael Aggarwal MD 06/11/25 13:54:
pt and family interested in talking with Hospice. Will place consult
Original Note:
Today's Communication/Plan
-
Wean oxygen as tolerated
If not able to be weaned needs home oxygen set up
Hematology oncology rounds awaited-family is looking to talk to heme-onc prior to making decisions
Check C. difficile
Continue antibiotics for now
Assessment / Plan
Assessment / Plan
85-year-old with history of metastatic pancreatic cancer on chemotherapy presented to the hospital with right-sided chest pain and shortness of breath for the past 3 days prior to arrival.
Cachectic
Decreased breath sounds right side
Abdomen soft and nontender
Bilateral pedal edema
CT chest abdomen pelvis-continued progression of osseous metastatic disease with increased number and size of bone metastasis compared to PET scan from 03/24/2025. Ill-defined pancreatic head adenocarcinoma. Moderate right and small to moderate
left pleural effusions due to above Right middle lobe and right lower lobe opacities are most suspicious for pneumonia in the appropriate clinical setting. Moderate pelvic ascites.
# Shortness of breath and chest pain secondary to right-sided pleural effusion
Acute hypoxic respiratory failure
Status post right thoracentesis with 1500 mL of fluid removed 06/09/2024
Cultures negative so far
Likely malignant effusion
Wean oxygen as tolerated
# Pneumonia-NOS. Start Zosyn and Doxy. Speech evaluation ruled out aspiration
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
Was On chemotherapy with Gemzar .
She does not want any more chemo moving forward
Hematology oncology evaluation appreciated.
# Hypokalemia-replaced
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
# Leukocytosis-likely secondary to G-CSF administration also treating for pneumonia. With loose stools check C. difficile.
# Anemia likely secondary to malignancy
# Paroxysmal atrial fibrillation-continue Pradaxa, flecainide, metoprolol
# Chronic orthostatic hypotension-continue midodrine
# Cognitive impairment
# History of nephrolithiasis
# Hypoalbuminemia
# DVT prophylaxis-Pradaxa
# DNR
D/W RN
D/W daughter at bed side detail
time spent over 50 min today
Had a detailed conversation with the patient as well as daughter today. It sounds like patient's is pushing for patient to have more chemotherapy treatments but she is tired of going through this at this point. She stated that there is no
way she is going to undergo any more chemotherapy. Daughter is also on board with this. I discussed about options of palliative care and hospice. While I did discuss this I made them aware that I am not clear if oncology has other things to offer
treatment f[place]man. But the sense I got was that the patient is more leaning towards palliative care and hospice and she is going to talk to her to support her through this. Daughter is completely on board with this and supportive of mom's
decision.
They would like to talk to hematology oncology prior to finally making the decision. I have sent a text to heme-onc on-call.
Part of this note was created using voice recognition system. Occasional wrong word or��sound alike� substitutions may have inadvertently occurred due to the inherent limitations of voice recognition software. If noted kindly bring it to my
attention for correction.
Anticipated Discharge: 24 - 48 hours
Subjective/Interval History
-
Date of Service: June 11, 2025
Objective Data
-
Labs:
Laboratory Results
06/11/25
05:29
WBC 108.3 H*
Hgb 10.3 L
Hct 29.8 L
Plt Count 119 L
Vital Signs:
Vital Signs
Temp Pulse Resp BP Pulse Ox
97.5 F 92 18 98/62 97
06/11/25 11:00 06/11/25 11:00 06/11/25 11:00 06/11/25 11:00 06/11/25 11:00
I&O
06/10/25 06/11/25 06/12/25
06:59 06:59 06:59
Intake Total 480 / 480 180 / 180
Balance 480 / 480 180 / 180
--- NOTE | 2025-06-11 12:15 | PTOTSP ---
Speech Language Pathology
VIDEOFLUOROSCOPIC SWALLOWING EXAMINATION (VSE) completed. Oropharyngeal swallow WNL. No significant pharyngeal residue or any penetration/aspiration noted.
Recommend:
(1) Regular solids/thin liquids
(2) General aspiration precautions
(3) Meds as tolerated
(4) BUTTON GRADER to sign off. Please reconsult as indicated
[2025-06-11] MEDS: LOVENOX 50 MG SC ×2 (13:35→23:16)
--- NOTE | 2025-06-11 14:41 | W.PN.ONC ---
Today's Communication / Plan
-
hospice consult
Impression
Impression
# Pancreatic adenocarcinoma with metastatic disease
# Large right sided pleural effusion
CXR 06/08/2025: Large right pleural effusion. Numerous tiny pulmonary nodules seen better on prior PET/CT exam.
PET scan done in March 2025 revealed positive response to treatment, improved uptake of patient's known pancreatic mass, resolution of hypermetabolic lymph nodes in the mediastinum/portacaval/retroperitoneal regions, improving uptake of osseous
metastases. There was a small right sided pleural effusion on prior imaging.
CT chest/abdomen/pelvis: Continued progression of osseous metastatic disease with increased size and number of bone metastases compared to the PET/CT from 03/24/2025. Decreased size of primary mass. Right middle lobe and right lower lobe opacities are
most suspicious for pneumonia
Plan
Plan
1. Metastatic pancreatic cancer
-Discussed overall plan of care w/ patient and her
-Patient expressed that she is not interested in further chemotherapy for arianna advanced metastatic pancreatic malignancy
-Discussed supportive care options including palliative care as well as hospice
-After discussion - both patient and her expressed an interest in discussing hospice care options w/ hospice caregivers in more detail
-Hospice consult will be placed
Will continue to follow with you.
Subjective/Objective
Subjective/Objective
feels tired, denies pain
Vital Signs:
Vital Signs
Temp Pulse Resp BP Pulse Ox
97.5 F 92 18 98/62 97
06/11/25 11:00 06/11/25 11:00 06/11/25 11:00 06/11/25 11:00 06/11/25 11:00
Lab Results:
Laboratory Data
WBC 108.3 10^3/uL (4.8-10.8) H* 06/11/25 05:29
Hgb 10.3 g/dL (12.0-16.0) L 06/11/25 05:29
Plt Count 119 10^3/uL (130-400) L 06/11/25 05:29
eGFR > 60.00 06/10/25 08:35
Exam: unchanged
--- NOTE | 2025-06-11 14:52 | CM ---
Addendum entered by Kim Silva 06/11/25 16:12:
Family is unsure about disposition/hospice/Palliative Care. Hospice ([facility]) is coordinating a meeting with family, Dr. Green (referral sent via [facility]) and myself for tomorrow.
Original Note:
CM received consult for hospice care. Referral sent to hospice for evaluation.
Plan: CM will follow to coordinate discharge planning needs based on pt's course and hospice recommendations.
[2025-06-11 15:00] VITALS: BP 92/51
--- NOTE | 2025-06-11 15:30 | HOSPNOTE ---
Addendum entered by Janett Gonzalez RN 06/11/25 16:09:
Spoke to spouse. He needs to speak with son and daughter to find out when they are available to come to hospital to discuss hospice all together in person. I am going to touch base with him tomorrow morning at 10 am to see when that can be. He is
attempting for the weekend but mentioned might not be able to do it before Saturday. I have updated CM, Attending and Primary Nurse. More information to follow after phone call tomorrow at 10am.
Original Note:
Hospice referral recieved. Called spouse and left a message. Awaiting return call. More information to follow.
[2025-06-11] MEDS: ZENPEP DELAYED RELEASE CAPSULE PO ×2 (17:09→20:49)
[2025-06-11 19:00] VITALS: BP 92/62
[2025-06-11 22:47] LABS: CA 19-9 897 U/mL (<=35)
[2025-06-11 23:00] VITALS: BP 112/67
--- NOTE | 2025-06-12 00:18 | PTCARENOTE ---
Oral care was not performed on patient because she stated that she was too tired and would rather do it in the morning.
[2025-06-12 03:00] VITALS: BP 97/55
[2025-06-12] MEDS: TYLENOL 650 MG PO (03:51)
--- NOTE | 2025-06-12 04:00 | PTCARENOTE ---
Patient more awake and alert at this time, c/o generalized aches and pains throughout entire body. Patient states 'this feels like there is something more going on.' Notified MATHEUS Glover - okay to give Tylenol now and reassess. Will monitor.
[2025-06-12] MEDS: ZOSYN 100 IV ×3 (05:54→17:28)
--- NOTE | 2025-06-12 06:29 | PTCARENOTE ---
Patient with one smear of soft stool at beginning of shift and one small soft/formed stool near change of shift in AM. Unable to send stool specimens for CDiff. Will discuss with dayshift team.
--- NOTE | 2025-06-12 08:32 | HOSPNOTE ---
Mr. Antonio called this RN this morning. He is having trouble reaching his son. He asked that Hospice can meet them Saturday at 11 am to discuss. He also reviewed that Faby Hannah will be without electricity until 4 pm Saturday. I reviewed we can
discuss the details of her discharge with hospice if they choose during that meeting. I did tell him that if he is able to get ahold of his son and wants us to meet them this weekend instead to please call this RN directly as he has my direct
number. He verbalized understanding. CM and Attending updated. More information to follow after meeting Saturday at 11 am. Hospice will continue to follow.
[2025-06-12 08:42] VITALS: BP 108/63
[2025-06-12] MEDS: VIBRAMYCIN 100 MG PO ×2 (09:37→21:11)
[2025-06-12] MEDS: TOPROL XL 25 MG PO (09:37)
[2025-06-12] MEDS: OSCAL 500 + D 500 MG PO (09:38)
[2025-06-12] MEDS: ZENPEP DELAYED RELEASE CAPSULE 1 CAPSULE PO (09:43)
[2025-06-12] MEDS: TAMBOCOR 50 MG PO ×2 (10:02→22:28)
--- NOTE | 2025-06-12 11:25 | W.PN.HOSP.TC ---
Today's Communication/Plan
-
see plan
Assessment / Plan
Assessment / Plan
85-year-old with history of metastatic pancreatic cancer on chemotherapy presented to the hospital with right-sided chest pain and shortness of breath for the past 3 days prior to arrival.
Cachectic
Decreased breath sounds right side
Abdomen soft and nontender
Bilateral pedal edema
CT chest abdomen pelvis-continued progression of osseous metastatic disease with increased number and size of bone metastasis compared to PET scan from 03/24/2025. Ill-defined pancreatic head adenocarcinoma. Moderate right and small to moderate
left pleural effusions due to above Right middle lobe and right lower lobe opacities are most suspicious for pneumonia in the appropriate clinical setting. Moderate pelvic ascites.
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
Was On chemotherapy with Gemzar .
She does not want any more chemo moving forward
Hematology oncology evaluation appreciated.
Hospice consulted - meeting to take place on Saturday
# Shortness of breath and chest pain secondary to right-sided pleural effusion
Acute hypoxic respiratory failure
Status post right thoracentesis with 1500 mL of fluid removed 06/09/2024
concern for malignant effusion
# Pneumonia-NOS.
-continue abx for now
# Hypokalemia-replaced
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
# Leukocytosis-likely secondary to G-CSF administration also treating for pneumonia. With loose stools check C. difficile.
# Anemia likely secondary to malignancy
# Paroxysmal atrial fibrillation-continue Pradaxa, flecainide, metoprolol
# Chronic orthostatic hypotension-continue midodrine
# Cognitive impairment
# History of nephrolithiasis
# Hypoalbuminemia
# DVT prophylaxis-Pradaxa
# DNR
Anticipated Discharge: 24 - 48 hours
Subjective/Interval History
-
Date of Service: June 12, 2025
patient feeling tired
Objective Data
-
Vital Signs:
Vital Signs
Temp Pulse Resp BP Pulse Ox
97.8 F 93 16 108/63 96
06/12/25 08:42 06/12/25 08:42 06/12/25 08:42 06/12/25 08:42 06/12/25 08:42
I&O
06/11/25 06/12/25 06/13/25
06:59 06:59 06:59
Intake Total 180 / 180 480 / 480
Balance 180 / 180 480 / 480
Review of Systems
-
History Source: Patient
All other systems: Reviewed and negative
Data Reviewed
-
Diagnostic Radiology: Report Reviewed by me
Labs: Labs Reviewed by me
[2025-06-12] MEDS: ZENPEP DELAYED RELEASE CAPSULE PO ×3 (12:01→22:29)
[2025-06-12] MEDS: LOVENOX 50 MG SC (12:06)
[2025-06-12 12:10] VITALS: BP 106/61
--- NOTE | 2025-06-12 15:01 | CM ---
Family is unsure about disposition/hospice/Palliative Care. Hospice ([facility]) is coordinating a meeting with family, Dr. Green (referral sent via [facility]) and CM for Saturday at 11am.
Original Note:
CM received consult for hospice care. Referral sent to hospice for evaluation.
Plan: CM will follow to coordinate discharge planning needs based on pt's course and hospice recommendations.
[2025-06-12 16:31] VITALS: BP 95/82
[2025-06-12 19:00] VITALS: BP 100/59
[2025-06-12] MEDS: OSCAL 500 + D PO ×2 (21:11→21:15)
--- NOTE | 2025-06-12 21:33 | PTCARENOTE ---
Took over care for Pt at 1915. Pt drowsy but easily arousable to verbal stimuli, ox3. nsr on monitor. vss. PT took scheduled medications whole in apple sauce without issues. Pt incontinent of large amount of liquid stool. Gown and linens changed.
specimen for cdiff sent as ordered. Report given to Monica TESFAYE, Pt moved to private room at 2129.
[2025-06-12 23:13] VITALS: BP 109/58
[2025-06-13] MEDS: ZOSYN 100 IV ×5 (00:18→23:26)
[2025-06-13 07:00] VITALS: BP 100/54
[2025-06-13] MEDS: TAMBOCOR 50 MG PO ×2 (09:27→22:06)
[2025-06-13] MEDS: ZENPEP DELAYED RELEASE CAPSULE 1 CAPSULE PO ×2 (09:27→13:21)
[2025-06-13] MEDS: PRADAXA 150 MG PO ×2 (09:27→20:47)
[2025-06-13] MEDS: TOPROL XL 25 MG PO (09:27)
[2025-06-13] MEDS: VIBRAMYCIN 100 MG PO ×2 (09:27→20:47)
[2025-06-13] MEDS: OSCAL 500 + D 500 MG PO (09:28)
[2025-06-13 11:00] VITALS: BP 119/63
--- NOTE | 2025-06-13 11:32 | W.PN.HOSP.TC ---
Today's Communication/Plan
-
hospice meeting and potential discharge tomorrow
Assessment / Plan
Assessment / Plan
85-year-old with history of metastatic pancreatic cancer on chemotherapy presented to the hospital with right-sided chest pain and shortness of breath for the past 3 days prior to arrival.
Cachectic
Decreased breath sounds right side
Abdomen soft and nontender
Bilateral pedal edema
bilateral upper extremity swelling, anasarca
CT chest abdomen pelvis-continued progression of osseous metastatic disease with increased number and size of bone metastasis compared to PET scan from 03/24/2025. Ill-defined pancreatic head adenocarcinoma. Moderate right and small to moderate
left pleural effusions due to above Right middle lobe and right lower lobe opacities are most suspicious for pneumonia in the appropriate clinical setting. Moderate pelvic ascites.
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
-Was On chemotherapy with Gemzar, no longer wants to continue
-Hematology oncology evaluation appreciated.
-Hospice consulted - meeting to take place on Saturday
# Shortness of breath and chest pain secondary to right-sided pleural effusion
Acute hypoxic respiratory failure
-Status post right thoracentesis with 1500 mL of fluid removed 06/09/2024
-concern for malignant effusion
# Pneumonia-NOS.
-continue abx for now, will stop once final decision on hospice made- discussed with
# Hypokalemia-replaced
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
# Leukocytosis-likely secondary to G-CSF administration also treating for pneumonia.
-no need to trend labs given goal is hospice
# Anemia likely secondary to malignancy
# Paroxysmal atrial fibrillation-continue Pradaxa, flecainide, metoprolol
# Chronic orthostatic hypotension-continue midodrine
# Cognitive impairment
# History of nephrolithiasis
# Hypoalbuminemia
# DVT prophylaxis-Pradaxa
# DNR
Anticipated Discharge: 24 - 48 hours
Subjective/Interval History
-
Date of Service: June 13, 2025
no new complaints
Objective Data
-
Vital Signs:
Vital Signs
Temp Pulse Resp BP Pulse Ox
97.7 F 95 17 119/63 94
06/13/25 11:00 06/13/25 11:00 06/13/25 11:00 06/13/25 11:00 06/13/25 11:00
I&O
06/12/25 06/13/25 06/14/25
06:59 06:59 06:59
Intake Total 480 / 480 240 / 240
Balance 480 / 480 240 / 240
Review of Systems
-
History Source: Patient
All other systems: Reviewed and negative
Data Reviewed
-
Diagnostic Radiology: Report Reviewed by me
Labs: Labs Reviewed by me
[2025-06-13 15:00] VITALS: BP 115/60
[2025-06-13] MEDS: ZENPEP DELAYED RELEASE CAPSULE PO ×2 (18:15→22:05)
[2025-06-13] MEDS: OSCAL 500 + D PO ×2 (20:48→20:57)
[2025-06-13 23:10] VITALS: BP 118/67
[2025-06-14] MEDS: ZOSYN 100 IV (05:43)
[2025-06-14 07:00] VITALS: BP 120/73
[2025-06-14] MEDS: ZENPEP DELAYED RELEASE CAPSULE 1 CAPSULE PO (08:09)
[2025-06-14] MEDS: VIBRAMYCIN 100 MG PO (08:09)
[2025-06-14] MEDS: TOPROL XL 25 MG PO (08:09)
[2025-06-14] MEDS: PRADAXA 150 MG PO ×2 (08:09→19:57)
[2025-06-14] MEDS: OSCAL 500 + D 500 MG PO ×2 (08:09→19:58)
[2025-06-14 09:51] VITALS: BP 117/66; BP 123/78; PULSE 87; PULSE 91; O2SAT 97
[2025-06-14 09:58] VITALS: BP 117/66; BP 123/78; PULSE 87; PULSE 91; O2SAT 97
--- NOTE | 2025-06-14 10:50 | W.PN.ONC2 ---
Today's Communication / Plan
-
hospice meeting planned for today
Impression
Impression
# Pancreatic adenocarcinoma with metastatic disease
# Large right sided pleural effusion
CXR 06/08/2025: Large right pleural effusion. Numerous tiny pulmonary nodules seen better on prior PET/CT exam.
PET scan done in March 2025 revealed positive response to treatment, improved uptake of patient's known pancreatic mass, resolution of hypermetabolic lymph nodes in the mediastinum/portacaval/retroperitoneal regions, improving uptake of osseous
metastases. There was a small right sided pleural effusion on prior imaging.
CT chest/abdomen/pelvis: Continued progression of osseous metastatic disease with increased size and number of bone metastases compared to the PET/CT from 03/24/2025. Decreased size of primary mass. Right middle lobe and right lower lobe opacities are
most suspicious for pneumonia
Plan
Plan
1. Metastatic pancreatic cancer
-Patient expressed that she is not interested in further chemotherapy for arianna advanced metastatic pancreatic malignancy
Subjective/Objective
Subjective
no new complaints
Vital Signs:
Vital Signs
Temp Pulse Resp BP Pulse Ox
97.6 F 106 17 120/73 97
06/14/25 07:00 06/14/25 08:08 06/14/25 07:00 06/14/25 08:08 06/14/25 07:00
Lab Results:
Laboratory Data
WBC 108.3 10^3/uL (4.8-10.8) H* 06/11/25 05:29
Hgb 10.3 g/dL (12.0-16.0) L 06/11/25 05:29
Plt Count 119 10^3/uL (130-400) L 06/11/25 05:29
eGFR > 60.00 06/10/25 08:35
Physical Exam
HEENT: Moist Mucous Membranes; No Jaundice
Pulmonary: Other (unlabored)
GI: Soft
Extremities: Pulses Present
[2025-06-14] MEDS: TAMBOCOR 50 MG PO (10:59)
--- NOTE | 2025-06-14 12:05 | HOSPNOTE ---
Spoke with patient and family and they are in agreement with hospice and the philosophy. The plan is for the patient to go home tomorrow with hospice. Equipment was ordered and will be delivered in the am. OOH DNR will be needed on chart and
transport should be scheduled at 11am. Once patient is home we will admit onto our service. Attending and CM aware of plan.
--- NOTE | 2025-06-14 12:07 | CM ---
Addendum entered by Sara He 06/14/25 16:17:
transport set up for 12:30pm - tt Anabel Elias critical power install technician - ok for that time tomorrow
Original Note:
Patient seen at bedside with family
Anabel Elias liaison from [facility] met with patient/family
Per Anabel Patient to go home with hospice tomorrow - set up 11am transport & equipment to be delivered
OOH DNR left on chart to be signed. tt hospitalist
IMM explained. In chart
plan: home with HOSPICE tomorrow 06/15
transport to be set up at 11am per Anabel Elias
[2025-06-14 12:08] LABS: Glucose - Point of Care 100 mg/dl (70-99)
--- NOTE | 2025-06-14 12:23 | W.PN.HOSP.TC ---
Today's Communication/Plan
-
DC with home hospice tomorrow
Assessment / Plan
Assessment / Plan
85-year-old with history of metastatic pancreatic cancer on chemotherapy presented to the hospital with right-sided chest pain and shortness of breath for the past 3 days prior to arrival.
CT chest abdomen pelvis-continued progression of osseous metastatic disease with increased number and size of bone metastasis compared to PET scan from 03/24/2025. Ill-defined pancreatic head adenocarcinoma. Moderate right and small to moderate
left pleural effusions due to above Right middle lobe and right lower lobe opacities are most suspicious for pneumonia in the appropriate clinical setting. Moderate pelvic ascites.
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
-Was On chemotherapy with Gemzar, no longer wants to continue
-Hematology oncology evaluation appreciated.
-Hospice consulted - plan is to DC to home hospice tomorrow
# Shortness of breath and chest pain secondary to right-sided pleural effusion
Acute hypoxic respiratory failure
-Status post right thoracentesis with 1500 mL of fluid removed 06/09/2024
-concern for malignant effusion
# Pneumonia-NOS.
-stop antibiotics
# Hypokalemia-replaced
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
# Leukocytosis-likely secondary to G-CSF administration also treating for pneumonia.
-no need to trend labs given goal is hospice
# Anemia likely secondary to malignancy
# Paroxysmal atrial fibrillation-continue Pradaxa, flecainide, metoprolol
# Chronic orthostatic hypotension-continue midodrine
# Cognitive impairment
# History of nephrolithiasis
# Hypoalbuminemia
# DVT prophylaxis-Pradaxa
# DNR
Anticipated Discharge: 24 - 48 hours
Subjective/Interval History
-
Date of Service: June 14, 2025
slightly fatigued and confused this morning
Objective Data
-
Vital Signs:
Vital Signs
Temp Pulse Resp BP Pulse Ox
97.6 F 106 17 120/73 97
06/14/25 07:00 06/14/25 08:08 06/14/25 07:00 06/14/25 08:08 06/14/25 07:00
I&O
06/13/25 06/14/25 06/15/25
06:59 06:59 06:59
Intake Total 240 / 240 840 / 840
Balance 240 / 240 840 / 840
Review of Systems
-
History Source: Patient
Physical Exam
-
General: No Apparent Distress
HEENT: Normocephalic and PERRLA
Respiratory: Clear to Auscultation and Non Labored Respirations
Cardiac: Regular Rhythm, S1/S2 and Other (No murmurs rubs or gallops)
GI: Soft, Nontender, Nondistended and Normal Bowel Sounds
Musculoskeletal: No Clubbing, No Cyanosis and No Edema
Skin: Warm and Dry
Neuro: Awake, Oriented and Nonfocal/Grossly Intact
Psych: Calm
Data Reviewed
-
Diagnostic Radiology: Report Reviewed by me
Labs: Labs Reviewed by me
[2025-06-14] MEDS: ZOSYN IV (12:24)
[2025-06-14] MEDS: ZENPEP DELAYED RELEASE CAPSULE PO ×3 (12:52→22:51)
--- NOTE | 2025-06-14 13:02 | PTCARENOTE ---
Pt nauseas and vomiting, made aware, new orders provided, see MAR.
[2025-06-14] MEDS: ZOFRAN 4 MG IV (13:04)
[2025-06-14 15:00] VITALS: BP 106/62
--- NOTE | 2025-06-14 15:02 | PN.CDI ---
CDI
- -
CDI:
Physician Documentation Request
Admit Date: 06/08/25 20:57
Dear Doctor Emmanuel,
Please review the following and provide your response in the progress notes.
Clinical Indicators:
- RN skin assessments indicate Stage 2 sacrum pressure injury
Physician documentation of the type and location of wounds is required for compliant documentation. Based on the above clinical findings and your assessment, please provide the following in your progress note:
1. Location of the ulcer/wound, including laterality.
2. Type (etiology) of ulcer/wound:
- Diabetic ulcer
- Arterial (ischemic) ulcer
- Traumatic wound
- Venous stasis ulcer
- Pressure (decubitus) ulcer
- Other
Use of terms such as suspected, likely, concern for, or probable (associated with a specific diagnosis that is being evaluated, monitored, or treated as if it exists) are acceptable and can be coded in the inpatient setting, when documented at the
time of discharge.
Thank you,
Ceasar Acuña RN
CDI Specialist
Please use your independent medical judgment in providing your response.
*Source: National Pressure Ulcer Advisory Panel (NPUAP)
[2025-06-14] MEDS: TAMBOCOR PO (22:51)
[2025-06-14 22:54] VITALS: BP 95/60
[2025-06-15 07:30] VITALS: BP 132/66
[2025-06-15] MEDS: OSCAL 500 + D 500 MG PO (08:33)
[2025-06-15] MEDS: PRADAXA PO (08:36)
[2025-06-15] MEDS: ZENPEP DELAYED RELEASE CAPSULE PO ×2 (08:36→10:38)
[2025-06-15] MEDS: TOPROL XL PO (08:37)
--- NOTE | 2025-06-15 09:24 | W.PN.HOSP.TC ---
Addendum entered and electronically signed by Sheeba Benitez MD 06/15/25 09:30:
appreciate wound care
Stage 2 sacrum pressure injury
Original Note:
Today's Communication/Plan
-
DC to hospice today
Assessment / Plan
Assessment / Plan
85-year-old with history of metastatic pancreatic cancer on chemotherapy presented to the hospital with right-sided chest pain and shortness of breath for the past 3 days prior to arrival.
CT chest abdomen pelvis-continued progression of osseous metastatic disease with increased number and size of bone metastasis compared to PET scan from 03/24/2025. Ill-defined pancreatic head adenocarcinoma. Moderate right and small to moderate
left pleural effusions due to above Right middle lobe and right lower lobe opacities are most suspicious for pneumonia in the appropriate clinical setting. Moderate pelvic ascites.
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
-Was On chemotherapy with Gemzar, no longer wants to continue
-Hematology oncology evaluation appreciated.
-Hospice consulted - plan is to DC to home hospice today
# Shortness of breath and chest pain secondary to right-sided pleural effusion
Acute hypoxic respiratory failure
-Status post right thoracentesis with 1500 mL of fluid removed 06/09/2024
-concern for malignant effusion
# Pneumonia-NOS.
-stop antibiotics
# Hypokalemia-replaced
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
# Leukocytosis-likely secondary to G-CSF administration also treating for pneumonia.
-no need to trend labs given goal is hospice
# Anemia likely secondary to malignancy
# Paroxysmal atrial fibrillation-continue Pradaxa, flecainide, metoprolol
# Chronic orthostatic hypotension-continue midodrine
# Cognitive impairment
# History of nephrolithiasis
# Hypoalbuminemia
# DVT prophylaxis-Pradaxa
# DNR
Anticipated Discharge: Today
Subjective/Interval History
-
Date of Service: June 15, 2025
seen after eating breakfast
plan is to DC to home hospice later today
Objective Data
-
Vital Signs:
Vital Signs
Temp Pulse Resp BP Pulse Ox
97.6 F 81 18 132/66 94
06/15/25 07:30 06/15/25 08:31 06/15/25 07:30 06/15/25 08:31 06/15/25 07:30
I&O
06/14/25 06/15/25 06/16/25
06:59 06:59 06:59
Intake Total 840 / 840 600 / 600
Balance 840 / 840 600 / 600
Review of Systems
-
History Source: Patient
All other systems: Reviewed and negative
Physical Exam
-
General: No Apparent Distress
HEENT: Normocephalic and PERRLA
Respiratory: Clear to Auscultation and Non Labored Respirations
Cardiac: Regular Rhythm, S1/S2 and Other (No murmurs rubs or gallops)
GI: Soft, Nontender, Nondistended and Normal Bowel Sounds
Musculoskeletal: No Clubbing, No Cyanosis and No Edema
Skin: Warm and Dry
Neuro: Awake, Oriented and Nonfocal/Grossly Intact
Psych: Calm
Data Reviewed
-
Diagnostic Radiology: Report Reviewed by me
Labs: Labs Reviewed by me
--- NOTE | 2025-06-15 09:29 | W.DS.TRANS ---
DC Summary - French Binding Folder
-
Discharge Instructions:
Discharge Diagnosis/Procedures Right sided pleural effusion, pneumonia, stage
IV pancreatic cancer
Diet Regular
Activity As tolerated
Driving Restrictions No driving
Bathing Restrictions None
Other Services Hospice
Instructions:
Stand-Alone Forms:
Changes to Home Medications: Yes
Discharge Medications:
DC Medications w/original date entered in [facility]
flecainide 50 mg tablet 50 mg PO Q12H Arrhythmia 12/10/24
metoprolol succinate 25 mg tablet,extended release 24 hr (Toprol XL) 25 mg PO DAILY Heart Disease/Condition 12/10/24
midodrine 10 mg tablet 10 mg PO BID Blood Pressure 12/10/24
dabigatran etexilate 150 mg capsule (Pradaxa) 150 mg PO BID Blood Clot Prevention/Tx 01/21/25
wsadyt-uouqpcdx-ufuegky(pork)10,000-32,000-42,000 unit capsule,del rel (Zenpep) 1 cap PO ACHS #30 caps 06/15/25
Home Medication Changes
addition of Zenpep
Pending Results: No
--- NOTE | 2025-06-15 09:39 | CM ---
Patient seen at bedside
OOH DNR signed by hospitalist
Spoke with regarding coal picker set for 12:30 (Anabel was made aware yesterday)
equipment per Anabel to be delivered by 10am today
PLAN: Home with Hospice
ambulance transport forms on chart, set for 12:30pm
[2025-06-15] MEDS: TAMBOCOR PO (10:39)
--- NOTE | 2025-06-15 12:30 | W.PN.ONC2 ---
Today's Communication / Plan
-
Pt put on hospice, to be discharged today.
Impression
Impression
# Pancreatic adenocarcinoma with metastatic disease
# Large right sided pleural effusion
CXR 06/08/2025: Large right pleural effusion. Numerous tiny pulmonary nodules seen better on prior PET/CT exam.
PET scan done in March 2025 revealed positive response to treatment, improved uptake of patient's known pancreatic mass, resolution of hypermetabolic lymph nodes in the mediastinum/portacaval/retroperitoneal regions, improving uptake of osseous
metastases. There was a small right sided pleural effusion on prior imaging.
CT chest/abdomen/pelvis: Continued progression of osseous metastatic disease with increased size and number of bone metastases compared to the PET/CT from 03/24/2025. Decreased size of primary mass. Right middle lobe and right lower lobe opacities are
most suspicious for pneumonia
Plan
Plan
- Patient expressed that she is not interested in further chemotherapy.
- Placed on hospice. To be discharged today around 12:30 PM.
Subjective/Objective
Subjective
Patient was sleeping when I went to examine her this morning. She states she feels fine, and is going home today. No new complaints.
Vital Signs:
Vital Signs
Temp Pulse Resp BP Pulse Ox
97.6 F 81 18 132/66 94
06/15/25 07:30 06/15/25 08:31 06/15/25 07:30 06/15/25 08:31 06/15/25 07:30
Lab Results:
Laboratory Data
WBC 108.3 10^3/uL (4.8-10.8) H* 06/11/25 05:29
Hgb 10.3 g/dL (12.0-16.0) L 06/11/25 05:29
Plt Count 119 10^3/uL (130-400) L 06/11/25 05:29
eGFR > 60.00 06/10/25 08:35
Physical Exam
HEENT: Moist Mucous Membranes
Cardiology: Normal Sinus Rhythm, S1 and S2
Pulmonary: Clear
GI: Soft and Normal Bowel Sounds
[2025-06-15] MEDS: TYLENOL 650 MG PO (12:50)
[2025-06-15 12:53] VITALS: BP 96/56
--- NOTE | 2025-06-15 13:43 | W.DCSUMMARY ---
Discharge Summary
Discharge Data
Date of Admission: 06/08/25
Date of Discharge: 06/15/25
-
Pending Results: No
Hospital Course
Discharging Physician : Dr. Sheeba Benitez
Disposition : Home with Home Hospice
Principal Discharge diagnosis : Metastatic Pancreatic Cancer, large right Pleural effusion
Hospital Course :
Ms. Marychuy Antonio is a 85-year-old woman with past medical history significant for pancreatic adenocarcinoma with metastatic disease, paroxysmal atrial fibrillation, orthostatic hypotension and cognitive impairment who presented to [facility] ED for
evaluation of hypoxia and shortness of breath.
Triage vitals with tachycardia, labs with WBC 63.2 (post GCSF0, Na 131, K+ 3.1. CXR showed large right pleural effusion. She was admitted to medicine with Oncology and IR consulting. She was started on antibiotics with concern for pneumonia. She
is status post thoracentesis on 06/09 with 1.5L removed. Cultures negative, concern for malignant effusion.
After conversations with patient it's clear she does not want further chemotherapy. At this point hospice was consulted and she is discharged home to home hospice on 06/15/25.
Time spent on discharge was 35 minutes.
Important imaging findings :
CXR
IMPRESSION:
Large right pleural effusion. Significantly increased.
Numerous tiny bilateral pulmonary nodules seen better on prior PET/CT exam.
Chest/Abdomen/Pelvis CT
IMPRESSION:
Continued progression of osseous metastatic disease with increased size and number of bone metastases compared to the PET/CT from 03/24/2025.
Ill-defined pancreatic head adenocarcinoma.
Moderate right and qyoip-qb-tdwoplek left pleural effusions. Right middle lobe and right lower lobe opacities are most suspicious for pneumonia in the appropriate clinical setting.
Moderate pelvic ascites.
Procedure findings :
Discharge Plan
-
Patient Disposition: Home with Hospice
Discharge Diagnosis/Procedures: Right sided pleural effusion, pneumonia, stage IV pancreatic cancer
Diet: Regular
Activity: As tolerated
Driving Restrictions: No driving
Bathing Restrictions: None
Other Services: Hospice
Referrals:
Brian Loza DO [Family Provider, Family Practice]
Additional Discharge Medication Instructions: Further medication adjustments per hospice team
Prescriptions:
New
Zenpep 10,000-32,000 -42,000 unit Capsule,Delayed Release(Dr/Ec)
1 cap PO ACHS Qty: 30 0RF
Continued
flecainide 50 mg Tablet
50 mg PO Q12H
metoprolol succinate [Toprol XL] 25 mg Tablet Extended Release 24 Hr
25 mg PO DAILY
midodrine 10 mg Tablet
10 mg PO BID
dabigatran etexilate [Pradaxa] 150 mg Capsule
150 mg PO BID
Discontinued
calcium carbonate-vitamin D3 [Oyster Shell Calcium-Vit D3] 500 mg-5 mcg (200 unit) Tablet
1 tab PO BID 30 Days Qty: 60 0RF
Discharge Orders:
Discharge Patient (As Directed); Ordered 06/15/25
Ordered By: Sheeba Benitez
Discharge Date and Time
Discharge Date/Time: 06/15/25 13:01
Print Language: [id number]
== END 2025-06-15 13:01 | disposition hospice, home (50) | DRG 435 ==
LOC: 3 WEST ACU 20:57
PROVIDERS: Hospitalist; Nurse Practitioner Family; Physician Assistant; Radiology Diagnostic Radiology; ADMITTING PHYSICIAN Hospitalist; ATTENDING PHYSICIAN Student in an Organized Health Care Education/Training Program; CONSULT PHYSICIAN Internal Medicine Hematology & Oncology; EMERGENCY PHYSICIAN Emergency Medicine; FAMILY PHYSICIAN Student in an Organized Health Care Education/Training Program
PROC: 0W993ZZ Drainage of Right Pleural Cavity, Percutaneous Approach (ICD-10-PCS; 2025-06-09)
DX: C25.0 Malignant neoplasm of head of pancreas (principal); J18.9 Pneumonia, unspecified organism; J96.01 Acute respiratory failure with hypoxia; R64 Cachexia; Z68.1 Body mass index [BMI] 19.9 or less, adult; C78.7 Secondary malignant neoplasm of liver and intrahepatic bile duct; C79.51 Secondary malignant neoplasm of bone; C77.9 Secondary and unspecified malignant neoplasm of lymph node, unspecified; E22.2 Syndrome of inappropriate secretion of antidiuretic hormone; R18.8 Other ascites; J91.0 Malignant pleural effusion; E88.09 Other disorders of plasma-protein metabolism, not elsewhere classified; Z51.5 Encounter for palliative care; L89.152 Pressure ulcer of sacral region, stage 2; E87.6 Hypokalemia; D63.0 Anemia in neoplastic disease; E78.00 Pure hypercholesterolemia, unspecified; I48.0 Paroxysmal atrial fibrillation; D72.823 Leukemoid reaction; I95.1 Orthostatic hypotension; R41.89 Other symptoms and signs involving cognitive functions and awareness; Z66 Do not resuscitate; Z90.710 Acquired absence of both cervix and uterus; Z79.899 Other long term (current) drug therapy; Z92.21 Personal history of antineoplastic chemotherapy; Z90.49 Acquired absence of other specified parts of digestive tract; Z87.442 Personal history of urinary calculi
CPT/HCPCS: 32555; 71045; 71260; 74177; 74230; 80048; 80053; 81003; 81015; 82150; 82945; 82962; 83615; 83986; 84157; 84478; 85025; 85027; 86301; 87015; 87070; 87086; 87102; 87116; 87205; 87206; 87324; 87449; 89051; 92610; 92611; 93005; 97163; 97167; 97530; 97535; 99285; Q9967